=== PATIENT | male | born 1940 | race Caucasian/White ===

== ENCOUNTER → 2018-12-07 | Day surgery (SDC) | payer MEDICARE ==
[2018-12-03 10:18] VITALS: BMI 29.7
[~2018-12-07] MED LIST: ALPRAZolam 0.25 MG TAB PO PRN; ASPIRIN 325 MG TAB PO ONE; FAMOTIDINE 20 MG TAB PO SCH; FENOFIBRATE NANOCRYSTALLIZED 145 MG PO SCH; GLIMEPIRIDE 2 MG TAB PO SCH; HEPARIN SODIUM 1,000 UN/ML (10ML VL) ONE; HYDROCHLOROTHIAZIDE 25 MG TAB PO SCH; IOPAMIDOL-370 125ML BTL INJ ONE; ISOSORBIDE MONONITRATE ER 60 MG TAB.ER.24H PO SCH; IV FLUID CONTINUATION 950 ML IV ONE; LIDOCAINE 1% INJ 10MG/ML (20 ML MDV) ONE; LIDOCAINE 1% INJ 10MG/ML (20 ML MDV) SQ ONE; LISINOPRIL 20 MG TAB PO SCH; NON-FORMULARY DRUG (Hydralazine Hcl [Apresoline] 100 MG) PO SCH; NON-FORMULARY DRUG (Metoprolol Tartrate [Lopressor] 100 MG) PO SCH; RX INFO: IV CONTRAST WAS GIVEN 1 EACH MISC MISCELLANE PRN; SODIUM CHLORIDE 0.9% 1,000 ML IV SCH; SODIUM CHLORIDE 0.9% 1,000 ML in EMPTY BAG 1 BAG IV ONE; VERAPAMIL 2.5 MG/ML 2 ML AMP ONE; VERAPAMIL SYRINGE (5 MG/10 ML) INTRAARTER ONE; fentaNYL (PF) 50 MCG/ML 2 ML AMP IV ONE; fentaNYL (PF) 50 MCG/ML 2 ML AMP ONE
[2018-12-07 07:15] LABS: Glucose,Whole Blood 136 mg/dL (75-99)
[2018-12-07 07:18] VITALS: RESP 18; TEMP 98.4
[2018-12-07 07:32] LABS: Basophils % (A) 0 %; Eosinophils # (A) 0.1 k/uL (0-0.7); Eosinophils % (A) 1 %; HCT 47.2 % (39.0-53.0); HGB 15.1 gm/dL (13.0-17.5); Lymphocytes # (A) 1.1 k/uL (1.0-4.8); Lymphocytes % (A) 17 %; MCH 31.2 pg (25.0-35.0); MCHC 31.9 g/dL (31.0-37.0); MCV 97.6 fL (80.0-100.0); Monocytes # (A) 0.4 k/uL (0-1.0); Monocytes % (A) 6 %; Neutrophils # (A) 4.7 k/uL (1.3-7.7); Neutrophils % (A) 72 %; Platelet Count 193 k/uL (150-450); RBC 4.84 m/uL (4.30-5.90); RDW 14.6 % (11.5-15.5); WBC 6.6 k/uL (3.8-10.6)
[2018-12-07 08:06] LABS: Calcium 9.1 mg/dL (8.4-10.2); Potassium 4.3 mmol/L (3.5-5.1)
--- NOTE | 2018-12-07 09:35 | CC ---
CARDIAC CATHETERIZATION REPORT Mr. Grossman is a 78-year-old male with known history of hypertension, hyperlipidemia, diabetes mellitus, history of cardiomyopathy who recently had evidence of worsening of his left ventricular systolic function. In view of that, he underwent myocardial perfusion imaging that revealed a predominantly fixed inferior wall defect. Because of the deterioration of his LV function and results of the stress test, recommendation made regarding cardiac catheterization, the procedures, risks and complications were discussed with the patient who is in full understanding and agreement. PROCEDURE: Patient was brought to energy systems laboratory director in the fasting semi-sedated state after receiving fentanyl and Benadryl and achieving moderate conscious sedated state. Using Xylocaine anesthesia and Seldinger technique, a 6-Czech sheath was introduced in the right radial artery. Selective right and left coronary angiography was performed using 5- Czech 3.5 bend right and left Kenji catheter, multiple views of the coronary artery including hemiaxial views obtained. Following that, a 5-Czech tight pigtail catheter was introduced in the left ventricle and a 30 degree LUCERO view of the left ventricle was obtained. Following that, catheter and sheaths were removed. Hemostasis was obtained with deployment of a TR band. There was no immediate complication. Patient is returned to his room in stable condition. Of note, patient received 4000 units of intravenous heparin as well as intra-arterial verapamil. There was no immediate complication. FINDINGS: LEFT MAIN: This is a large-sized vessel, trifurcating into left circumflex, left anterior descending artery and ramus intermedius. Left main coronary artery has no evidence of high-grade stenosis. LEFT ANTERIOR DESCENDING ARTERY: This is a large-sized vessel, reaching toward the apex with a wraparound apex segment, giving rise to a moderately-sized diagonal branch. The left anterior descending artery has mild intimal disease of 10% to 20% without any evidence of high-grade stenosis. LEFT CIRCUMFLEX: This is a nondominant vessel, giving rise to two obtuse marginal branches. The left circumflex has no evidence of high-grade stenosis. RAMUS INTERMEDIUS: This is a large-sized vessel that reached toward the apical lateral wall. The ramus intermedius has mild intimal disease without any evidence of high-grade stenosis. RIGHT CORONARY ARTERY: This is a large dominant vessel, bifurcating distally to a PDA and small PLV. The right coronary artery in the proximal segment has a 40% plaque. The rest of the vessel has diffuse intimal disease without any evidence of high-grade stenosis. LEFT VENTRICULOGRAM: Left ventriculogram was performed in 30 degree LUCERO view and revealed a dilated left ventricle with severe global hypokinesis. Ejection fraction is estimated at 20%-25%. There was no significant mitral regurgitation. HEMODYNAMICS: There was no gradient across the aortic valve. The left ventricle end-diastolic pressure was 20% to 24 mmHg. CONCLUSION: 1. Moderate disease in the proximal right coronary artery with mild disease in the LAD and the ramus intermedius. 2. Severely impaired left ventricular systolic function. RECOMMENDATION: In view of the findings, the results are consistent with nonischemic cardiomyopathy. At this time, I will recommend to maximize his medical therapy and consider upgrading his pacemaker to a biventricular ICD device. Those findings and recommendation were discussed with the patient and his family, they are in full understanding and agreement. Duration of the procedure, 22 minutes. TAMIE / BLANKA: [id number] /
[2018-12-07 11:58] VITALS: BP 114/69; PULSE 75
== END | disposition home or self-care (01) ==
LOC: CATHCVL 06:24
PROVIDERS: ATTEND Internal Medicine Interventional Cardiology
DX: I25.10 Atherosclerotic heart disease of native coronary artery without angina pectoris (principal); I48.2 Chronic atrial fibrillation; I42.8 Other cardiomyopathies; I11.9 Hypertensive heart disease without heart failure; E11.51 Type 2 diabetes mellitus with diabetic peripheral angiopathy without gangrene; F17.210 Nicotine dependence, cigarettes, uncomplicated; I25.2 Old myocardial infarction; E78.2 Mixed hyperlipidemia; Z79.01 Long term (current) use of anticoagulants; Z79.899 Other long term (current) drug therapy; Z95.0 Presence of cardiac pacemaker; Z79.84 Long term (current) use of oral hypoglycemic drugs
CPT/HCPCS: 93458; 80048; 85025; C1894; C1769; J2001; J3010; J1644; Q9967

== ENCOUNTER → 2018-12-17 | Outpatient (CLI) | payer MEDICARE ==
[2018-12-17 20:00] LABS: Anion Gap 10.4 mmol/L (4.00-12.00); Calcium 8.8 mg/dL (8.7-10.3); Carbon Dioxide 27.6 mmol/L (21.6-31.8)
== END | disposition home or self-care (01) ==
LOC: LABWHC1 13:11
PROVIDERS: ATTEND Nurse Practitioner Adult Health
DX: I42.8 Other cardiomyopathies (principal)
CPT/HCPCS: 36415; 80048

== ENCOUNTER → 2019-01-18 | Day surgery (SDC) | payer MEDICARE ==
[~2019-01-18] MED LIST changes: -ALPRAZolam 0.25 MG TAB PO PRN; -ASPIRIN 325 MG TAB PO ONE; -FAMOTIDINE 20 MG TAB PO SCH; -FENOFIBRATE NANOCRYSTALLIZED 145 MG PO SCH; -GLIMEPIRIDE 2 MG TAB PO SCH; -HEPARIN SODIUM 1,000 UN/ML (10ML VL) ONE; -HYDROCHLOROTHIAZIDE 25 MG TAB PO SCH; +IOPAMIDOL-250 50ML BTL IV ONE; -IOPAMIDOL-370 125ML BTL INJ ONE; -ISOSORBIDE MONONITRATE ER 60 MG TAB.ER.24H PO SCH; -IV FLUID CONTINUATION 950 ML IV ONE; -LIDOCAINE 1% INJ 10MG/ML (20 ML MDV) ONE; -LIDOCAINE 1% INJ 10MG/ML (20 ML MDV) SQ ONE; -LISINOPRIL 20 MG TAB PO SCH; -NON-FORMULARY DRUG (Hydralazine Hcl [Apresoline] 100 MG) PO SCH; -NON-FORMULARY DRUG (Metoprolol Tartrate [Lopressor] 100 MG) PO SCH; -RX INFO: IV CONTRAST WAS GIVEN 1 EACH MISC MISCELLANE PRN; -SODIUM CHLORIDE 0.9% 1,000 ML IV SCH; -SODIUM CHLORIDE 0.9% 1,000 ML in EMPTY BAG 1 BAG IV ONE; +SODIUM CHLORIDE 0.9% 500 ML 500 ML IV ONE; -VERAPAMIL 2.5 MG/ML 2 ML AMP ONE; -VERAPAMIL SYRINGE (5 MG/10 ML) INTRAARTER ONE; -fentaNYL (PF) 50 MCG/ML 2 ML AMP IV ONE; -fentaNYL (PF) 50 MCG/ML 2 ML AMP ONE
[2019-01-18 14:47] VITALS: BP 135/72; PULSE 73; RESP 18; TEMP 97.7
--- NOTE | 2019-01-18 15:50 | P.PCN ---
Preoperative Diagnosis: Diagnosis Congestive heart failure with severe LV dysfunction, [id number]% 100%RVpacing global hypokinesis nonischemic coronary myopathy Nonobstructive CAD Likely progressive cardio myopathy within 2 years of 100% RV pacing secondary to dual-chamber pacing for complete heart block Significant heart failure symptoms Cinefluoroscopy of the leads Right-sided dual-chamber pacemaker implant. Cine fluoroscopy reveals right atrial lead screwed in the right atrial appendage and RV lead in the low RV septum. No fractures or breaks Right upper extremity venography 10 mL of IV dye injected in the right upper extremity. Patent left axillary vein but significantly occluded innominate/SVC junction There is a trickle of dye that goes across this stenosis Plan Attempt access from the right side. Vein will need to be dilatation. If this does not succeed one could consider a left-sided implant and tunneling the LV lead across to the right side. The other option is thoracoscopic LV lead placement Discussed with patient's [id number] who accompanied him
== END | disposition home or self-care (01) ==
LOC: CATHEP 14:24
PROVIDERS: ATTEND Internal Medicine Clinical Cardiac Electrophysiology
DX: I42.8 Other cardiomyopathies (principal); I25.10 Atherosclerotic heart disease of native coronary artery without angina pectoris; I48.2 Chronic atrial fibrillation; I50.22 Chronic systolic (congestive) heart failure; E78.2 Mixed hyperlipidemia; I44.2 Atrioventricular block, complete; I11.0 Hypertensive heart disease with heart failure; E11.51 Type 2 diabetes mellitus with diabetic peripheral angiopathy without gangrene; Z72.0 Tobacco use; Z79.84 Long term (current) use of oral hypoglycemic drugs; Z79.01 Long term (current) use of anticoagulants; Z79.899 Other long term (current) drug therapy; Z95.0 Presence of cardiac pacemaker
CPT/HCPCS: 36005; 75820; Q9966; 76000

== ENCOUNTER → 2019-01-25 | Outpatient (CLI) | payer MEDICARE ==
[2019-01-25 11:48] LABS: HCT 44.6 % (39.0-53.0); HGB 13.6 gm/dL (13.0-17.5); MCH 29.5 pg (25.0-35.0); MCHC 30.5 g/dL (31.0-37.0); MCV 96.7 fL (80.0-100.0); Mean Platelet Volume 7.4; Platelet Count 174 k/uL (150-450); RBC 4.61 m/uL (4.30-5.90); RDW 15.2 % (11.5-15.5); WBC 5.1 k/uL (3.8-10.6)
== END | disposition home or self-care (01) ==
LOC: LABPAT 11:13
PROVIDERS: ATTEND Internal Medicine Clinical Cardiac Electrophysiology
DX: Z01.812 Encounter for preprocedural laboratory examination (principal); I48.2 Chronic atrial fibrillation; I42.8 Other cardiomyopathies
CPT/HCPCS: 36415; 80051; 82565; 82947; 84520; 85027

== ENCOUNTER 2019-02-01 05:57 | Day surgery (SDC) | payer MEDICARE ==
[~2019-02-01 05:57] MED LIST changes: +HYDROmorphone 0.5 MG/0.5 ML SYRINGE IVP PRN; -IOPAMIDOL-250 50ML BTL IV ONE; +LACTATED RINGERS 1,000 ML IV SCH; +MORPHINE SULFATE 4 MG/ML SYRINGE IV PRN; -SODIUM CHLORIDE 0.9% 500 ML 500 ML IV ONE
[2019-02-01] MEDS ORDERED: SODIUM CHLORIDE 0.9% 1,000 ML IV SCH ×2 (06:04)
[2019-02-01] MEDS ORDERED: ceFAZolin 1,000 MG in SODIUM CHLORIDE 0.9% IRRIGATIO 250 ML IRRIGATION ONE (06:30)
[2019-02-01 06:58] LABS: Glucose,Whole Blood 92 mg/dL (75-99)
[2019-02-01] MEDS ORDERED: MIDAZOLAM 2 MG/2 ML VIAL ONE (07:30)
[2019-02-01] MEDS ORDERED: fentaNYL (PF) 50 MCG/ML 2 ML AMP ONE (07:30)
[2019-02-01] MEDS ORDERED: SUCCINYLCHOLINE CHLORIDE 100 MG/5 ML SYR IV ONE (07:30)
[2019-02-01] MEDS ORDERED: PROPOFOL 10 MG/ML 20 ML VIAL IV ONE (07:30)
[2019-02-01] MEDS ORDERED: ePHEDrine SULFATE/0.9% NACL/PF 50 MG/5 ML SYRINGE IV ONE (07:30)
[2019-02-01] MEDS ORDERED: LIDOCAINE 1% INJ 10MG/ML (20 ML MDV) ONE ×2 (07:46→08:23)
[2019-02-01] MEDS ORDERED: IV FLUID CONTINUATION 900 ML IV ONE (07:48)
[2019-02-01] MEDS ORDERED: SODIUM CHLORIDE 0.9% 250 ML IV ONE (07:48)
[2019-02-01] MEDS ORDERED: IOPAMIDOL-250 50ML BTL IV ONE (08:00)
[2019-02-01] MEDS: ceFAZolin IN SWFI 2 GM/20 ML SYRINGE IVP ONE ×2 (08:18→08:23)
[2019-02-01] MEDS: VANCOMYCIN 1,250 MG in SODIUM CHLORIDE 0.9% 250 ML IVPB ONE ×2 (08:23→08:28)
[2019-02-01] MEDS ORDERED: LIDOCAINE 1% INJ 10MG/ML (20 ML MDV) SQ ONE (08:27)
[2019-02-01] MEDS ORDERED: LACTATED RINGERS 1,000 ML IV ONE (11:06)
[2019-02-01] MEDS ORDERED: ACETAMINOPHEN TAB 325 MG TAB PO PRN (12:13)
[2019-02-01] MEDS ORDERED: HYDROcodone/APAP 5-325MG 1 EACH TAB PO PRN (12:13)
[2019-02-01] MEDS ORDERED: ACETAMINOPHEN IV (For NPO) 1,000 MG in EMPTY BAG 1 BAG IVPB ONE (12:13)
--- NOTE | 2019-02-01 12:25 | P.PN ---
Progress Note - Text This morning the patient was being prepped, chest wall, there was breech in the skin integrity during shaving process. Therefore IV vancomycin was administered along with intravenous Kefzol
--- NOTE | 2019-02-01 12:52 | P.PCN ---
Preoperative Diagnosis: Diagnosis Congestive heart failure new chronic systolic dysfunction High RV pacing percentage on account of significant AV node disease Procedures performed Implantation of a his bundle lead, physiologic septal pacing, with development of a left bundle branch block morphology type conduction, QRS width of 136 ms, via left axillary vein Implantation of an LV lead in the lateral vein for biventricular pacing with His bundle lead, via left axillary vein Capping of the chronic RV lead in the right side and secured to the underlying r ight pectoralis muscle Tunneling of the His bundle lead and the LV lead from the left to the right side Explantation of dual-chamber pacemaker on the right side him a chronic generator Implantation of a new biventricular pacemaker generator where the chronic atrial lead is in the atrial port, His bundle lead is in the right ventricular port and LV lead is in the LV port. Long procedure lasting for greater than 3-1/2 hours Details of procedure The left anterior chest wall was prepped and draped in its entirety. General anesthesia was provided. IV Kefzol followed by IV vancomycin was administered. The chronic pacemaker generator on the right side was reprogrammed. Rate- responsive turned off Incision was made in the right side directly over the generator and the subfascial pocket was made and extended for implantation of the future biventricular pacemaker. Tunneling process was begun on the right side and later on the left side. Later the atrial lead was disconnected and connected to the biventricular pacemaker generator, [employer]tr[employer] Once the LV lead in the His bundle lead was tunneled on the left side to the right side these were connected to this generator also. His bundle lead in the right ventricular port and LV lead in the LV port With biventricular pacing using the His bundle lead and the LV lead there was significant narrowing of the QRS which was our ultimate goal with a QRS width of about 104 ms normal morphology An incision was made on the left side a small pocket was made. Access was obtained in the left axillary vein First the His bundle lead was placed. Multiple sites was explored to narrow the QRS. However at all sites with the proximal or distal, the morphology was a left bundle branch block with His bundle pacing even at high output. The narrowest QRS width 15 was 136 ms The first decision was made to place the LV lead also and performed biventricular pacing with the His bundle lead to further narrow QRS in an attempt to provide more synchronous contraction and hopefully improve his heart failure status Coronary sinus was cannulated the LV lead was placed. Initially the Medtronic lead was placed. Gerardo sinus venogram revealed a large lateral vein and a posterior lateral vein. The lateral vein was targeted. However the Medtronic lead would not pass into the lateral vein on account of the tortuosity. Therefore a [facility] [facility] office receptionist was placed. There was a slight dislodgment of the lead proximally upon removal of the sheath and therefore decision was made to implant the Medtronic lead over the wire. However this would not successful and a new [facility] [facility] [facility] receptionist was placed more distally in the lateral vein. This was a long procedure A lead and the LV lead was then tunneled across to the right side and connected as described above AV sequential pacing with biventricular pacing using the His bundle lead in the LV lead resulted in significant narrowing of the QRS with normalization of the QRS with a QRS width of 104 ms with simultaneous pacing This is a long procedure lasting greater than 3-1/2 hours
--- NOTE | 2019-02-01 12:53 | P.PRLE ---
RE: Dm Grossman Dear Dr. Stanford Mr. Grossman underwent implantation of a biventricular pacemaker with significant narrowing of the QRS. Hopefully this helps with his heart failure. His m edications remain unchanged Thank you for entrusting me with the care of the patient Warm regards Sincerely Donal Boykin
[2019-02-01] MEDS: ceFAZolin IN SWFI 2 GM/20 ML SYRINGE IVP SCH ×2 (14:34→18:43)
[2019-02-01 14:50] VITALS: RESP 18
[2019-02-01] MEDS: LISINOPRIL 20 MG TAB PO SCH (21:06)
[2019-02-01] MEDS: hydrALAZINE HCL 50 MG TAB PO SCH (21:06)
[2019-02-01] MEDS: METOPROLOL TARTRATE 50 MG TAB PO SCH (21:06)
[2019-02-01] MEDS: APIXABAN 2.5 MG TABLET PO SCH (21:06)
[2019-02-01 21:41] LABS: Glucose,Whole Blood 122 mg/dL (75-99)
[2019-02-01] MEDS: GLIMEPIRIDE 1 MG TAB PO SCH (23:24)
[2019-02-02] MEDS: ceFAZolin IN SWFI 2 GM/20 ML SYRINGE IVP SCH ×2 (00:36→06:40)
[2019-02-02 06:38] LABS: Glucose,Whole Blood 93 mg/dL (75-99)
[2019-02-02 08:01] VITALS: BP 139/80; PULSE 67; TEMP 98.3
--- NOTE | 2019-02-02 08:08 | P.DS ---
Providers Attending physician: Donal Boykin Primary care physician: Hien Pradhan [facility] Course: Patient is doing well. He is resting comfortably in bed. He ambulated in his room as well as in the hallways comfortably He denies any chest discomfort that is no bruising in his chest no swelling in the pacemaker site No dizziness lightheadedness Blood pressure 147/74 mmHg Pulse rate in the 70s Breath sounds are clear Normal heart sounds, no murmurs Abdomen soft Eccentric 70s warm no edema Impression Upgrade to a biventricular system, by ventricle pacemaker Leads placed via left axillary vein and then tunneled across to the right side Biventricular pacemaker generator on the right side Cardiomyopathy Congestive heart failure Suggest Discharge home after completion of IV antibiotics pacemaker interrogation and follow-up in the device clinic within 7 days and follow with Dr. Dr. Reddy within 7 days Plan - Discharge Summary Discharge Rx Participant: Yes New Discharge Prescriptions: Continue Metoprolol Tartrate [Lopressor] 100 mg PO BID Hydrochlorothiazide [Hydrodiuril] 25 mg PO DAILY metFORMIN HCL [Glucophage] 1,000 mg PO BID hydrALAZINE HCL [Apresoline] 100 mg PO BID Fenofibrate Nanocrystallized [Fenofibrate] 145 mg PO DAILY Isosorbide Mononitrate ER [Imdur] 60 mg PO DAILY Famotidine 20 mg PO BID Apixaban [Eliquis] 2.5 mg PO BID Lisinopril 20 mg PO BID Furosemide [Lasix] 20 mg PO DAILY Glimepiride [Amaryl] 1 mg PO BID Discharge Medication List Fenofibrate Nanocrystallized [Fenofibrate] 145 mg PO DAILY 02/16/15 [History] Hydrochlorothiazide [Hydrodiuril] 25 mg PO DAILY 02/16/15 [History] Isosorbide Mononitrate ER [Imdur] 60 mg PO DAILY 02/16/15 [History] Metoprolol Tartrate [Lopressor] 100 mg PO BID 02/16/15 [History] hydrALAZINE HCL [Apresoline] 100 mg PO BID 02/16/15 [History] metFORMIN HCL [Glucophage] 1,000 mg PO BID 02/16/15 [History] Apixaban [Eliquis] 2.5 mg PO BID 12/03/18 [History] Famotidine 20 mg PO BID 12/03/18 [History] Lisinopril 20 mg PO BID 12/03/18 [History] Furosemide [Lasix] 20 mg PO DAILY 01/18/19 [History] Glimepiride [Amaryl] 1 mg PO BID 02/01/19 [History] Follow up Appointment(s)/Referral(s): Landyr Reddy MD [STAFF PHYSICIAN] - 1 Week (Follow-up as scheduled next week along with pacemaker check in the device clinic) Activity/Diet/Wound Care/Special Instructions: PATIENT EDUCATION MATERIAL Instructions following a heart rhythm device implant. 1. Keep dressing DRY for 5 DAYS. You may cover the area with Saran or Cling Wrap, prior to a shower. 2. The dressing will be removed in the Device Clinic at [facility]. Absorbable sutures were used to close the wound. 3. Avoid raising the left arm above the shoulder level. 4 week restriction 4. Avoid arm movements, like backscratching, rubbing the head, or pulling on a cord. 4 weeks restriction 5. Gentle range of motion movements of the shoulder, closest to the incision should be performed to avoid a frozen shoulder. (Pendulum exercises of the shoulder) 6. The opposite arm may be used freely. 7. Avoid driving for 7 days. 8. Avoid activities such as golfing, swimming, weed whacking, lifting more than 10 pounds weight, bowling, gymnastics and weight training/lifting. (6 weeks restriction) 9. Activities such as wood chopping with an axe, pull-ups in the gymnasium, power lifting, arc-welding, being close to home induction cooktops will always be a problem. 10. Arm sling is only a reminder not to raise the arm above the head. You do not need to keep the arm completely immobilized. Your free to move the arm and use it and for normal activities. In case of any problems, please call [facility], Sita Sanchez, @ [phone], Attention: Device Clinic Device clinic follow-up in 5 days Follow-up with primary intern product marketing manager in 2-3 months Discharge Disposition: HOME SELF-CARE
--- NOTE | 2019-02-02 08:25 | XR ---
EXAMINATION TYPE: XR chest 2V DATE OF EXAM: 02/02/2019 COMPARISON: NONE HISTORY: Shortness of breath TECHNIQUE: Frontal and lateral views of the chest are obtained. FINDINGS: Scattered senescent parenchymal changes noted. Hyperinflation compatible with COPD. Right basilar atelectasis and/or infiltrate. Correlate clinically. Pulmonary venous congestion withou t overt failure. Dual-lead pacer device overlies the right chest wall. Distal leads are within the right atrium and ri ght ventricle respectively. Heart size is stable. Mediastinal structures are stable and grossly unremarkable. No evidence for hilar prominence. Degenerative changes dorsal spine. IMPRESSION: 1. Pacemaker leads as noted. 2. Right basilar volume loss may reflect atelectasis or infiltrate. Correlate clinically.
[2019-02-02] MEDS ORDERED: HYDROCHLOROTHIAZIDE 25 MG TAB PO SCH (09:00)
[2019-02-02] MEDS ORDERED: ISOSORBIDE MONONITRATE ER 60 MG TAB.ER.24H PO SCH (09:00)
[2019-02-02] MEDS ORDERED: FUROSEMIDE 20 MG TAB PO SCH (09:00)
[2019-02-02] MEDS: APIXABAN 2.5 MG TABLET PO SCH (09:31)
[2019-02-02] MEDS: LISINOPRIL 20 MG TAB PO SCH (09:31)
[2019-02-02] MEDS: METOPROLOL TARTRATE 50 MG TAB PO SCH (09:31)
[2019-02-02] MEDS: hydrALAZINE HCL 50 MG TAB PO SCH (09:31)
[2019-02-02] MEDS: GLIMEPIRIDE 1 MG TAB PO SCH (09:31)
[2019-02-02 11:13] VITALS: BMI 27.6
[2019-02-03] MEDS ORDERED: metFORMIN 500 MG TAB PO SCH (17:30)
== END 2019-02-02 11:00 | disposition home or self-care (01) ==
LOC: CATHEP 05:57 → 1SOBS 11:48 → CATHEP 02-02 11:00
PROVIDERS: ATTEND Internal Medicine Clinical Cardiac Electrophysiology
DX: I42.8 Other cardiomyopathies (principal); I11.0 Hypertensive heart disease with heart failure; I50.22 Chronic systolic (congestive) heart failure; Z45.018 Encounter for adjustment and management of other part of cardiac pacemaker; I48.2 Chronic atrial fibrillation; E78.5 Hyperlipidemia, unspecified; I25.10 Atherosclerotic heart disease of native coronary artery without angina pectoris; I42.9 Cardiomyopathy, unspecified; M19.90 Unspecified osteoarthritis, unspecified site; I25.2 Old myocardial infarction; Z72.0 Tobacco use; E11.51 Type 2 diabetes mellitus with diabetic peripheral angiopathy without gangrene; Z79.01 Long term (current) use of anticoagulants; Z79.84 Long term (current) use of oral hypoglycemic drugs; Z79.899 Other long term (current) drug therapy
CPT/HCPCS: 33225; 33229; 71046; C1769 ×5; C1750; C1730; C1898; C1892 ×2; C1900 ×2; C2621; J2250; J3370; J0690 ×3; J2001; J3010; J0330; J2704; Q9966

== ENCOUNTER → 2019-05-12 | Outpatient (CLI) | payer MEDICARE ==
--- NOTE | 2019-05-12 16:16 | US ---
EXAMINATION TYPE: US kidneys/renal and bladder DATE OF EXAM: 05/12/2019 COMPARISON: NONE CLINICAL HISTORY: N28.9 Disorder of kidney and ureter, unspecified; diabetic EXAM MEASUREMENTS: Right Kidney: 10.1 x 6.2 x 4.4 cm Left Kidney: 10.5 x 5.3 x 4.8 cm Post Void Residual Volume: not assessed as bladder limitedly distended Right Kidney: No hydronephrosis or masses seen Left Kidney: 2 renal cysts seen with larger at medial cortex = 1.6 x 1.5 x 1.4cm Bladder: partially distended Bilateral Jets seen: No, small left ureteral jet was seen within 3 minute observation There is no evidence for hydronephrosis at this point in time. No nephrolithiasis is seen. The urin lucy bladder is anechoic. IMPRESSION: Simple appearing right renal cysts measuring up to 1.6 cm. No hydronephrosis or nephrolithiasis of ei ther kidney.
== END | disposition home or self-care (01) ==
LOC: RADUSWWP 14:57
PROVIDERS: ATTEND Internal Medicine
DX: N28.1 Cyst of kidney, acquired (principal); Z88.0 Allergy status to penicillin
CPT/HCPCS: 76770

== ENCOUNTER → 2020-05-15 | Outpatient (CLI) | payer MEDICARE ==
[2020-05-15 18:52] LABS: African American GFR (CKD) 54.2 (60.0-200.0); Anion Gap 8.2 mmol/L (4.00-12.00); BUN/Creat Ratio 21.43 Ratio (12.00-20.00); Calcium 9.5 mg/dL (8.7-10.3); Carbon Dioxide 28.8 mmol/L (21.6-31.8); Non-African American GFR(CKD) 46.8 (60.0-200.0)
== END | disposition home or self-care (01) ==
LOC: LABWHC1 09:06
PROVIDERS: ATTEND Internal Medicine Interventional Cardiology
DX: I10 Essential (primary) hypertension (principal)
CPT/HCPCS: 36415; 80048

== ENCOUNTER → 2020-12-03 | Outpatient (CLI) | payer MEDICARE ==
[2020-12-03 12:33] LABS: Appearance,Urine Cloudy (Clear); Bacteria,Urine Rare /hpf; Bilirubin,Urine Negative (Negative); Blood,Urine Negative (Negative); Color,Urine Yellow; Glucose,Urine (UA) Negative (Negative); Hyaline Casts,Urine 14 /lpf (0-2); Ketones,Urine Negative (Negative); Leukocyte Esterase,Urine Negative (Negative); Mucus,Urine Moderate /hpf; Nitrite,Urine Negative (Negative); Protein,Urine 1+ (Negative); RBC,Urine 1 /hpf (0-5); Specific Gravity,Urine 1.021 (1.001-1.035); Squamous Epithelial Cell,Urine 2 /hpf (0-4); WBC,Urine 1 /hpf (0-5)
[2020-12-03 19:52] LABS: African American GFR (CKD) 65.3 (60.0-200.0); Anion Gap 8.5 mmol/L (4.00-12.00); BUN/Creat Ratio 22.5 Ratio (12.00-20.00); Calcium 9.5 mg/dL (8.7-10.3); Carbon Dioxide 28.5 mmol/L (21.6-31.8); Chol/HDL Ratio 2.4; LDL Cholesterol,Calculated 34.8 mg/dL (0.0-131.0); Non-African American GFR(CKD) 56.4 (60.0-200.0); Potassium 4.2 mmol/L (3.5-5.5); VLDL Calculation 21.2 mg/dL (5.00-40.00)
== END | disposition home or self-care (01) ==
LOC: LABWHC1 11:12 → EDSTATUS 11:23
PROVIDERS: ATTEND Internal Medicine Nephrology
DX: N18.31 Chronic kidney disease, stage 3a (principal); E78.2 Mixed hyperlipidemia
CPT/HCPCS: 36415; 80048; 80061; 81001

== ENCOUNTER → 2020-12-04 | Outpatient (CLI) | payer MEDICARE ==
--- NOTE | 2020-12-04 16:02 | US ---
EXAMINATION TYPE: US kidneys/renal and bladder DATE OF EXAM: 12/04/2020 COMPARISON: CLINICAL HISTORY: Renal cyst left N28.1. hx renal cysts. EXAM MEASUREMENTS: Right Kidney: 10.0 x 4.1 x 4.6 cm Left Kidney: 9.1 x 3.9 x 4.8 cm Right Kidney: two cystic appearing lesions seen. 1= mid cortical = 0.6 x 0.5 x 0.5 cm. 2- medial = 0 .6 x 0.5 x 0.5 cm. Left Kidney: two cystic appearing lesion seen. 1= upper- 0.7 x 0.7 x 0.7 cm 2= medial pole exophyti c = 1.4 x 1.5 x 1.0 cm Bladder: mildly distended, anechoic Bilateral Jets not seen Incidental finding: right pleural effusion= 12.0 cm Cortical medullary differentiation is maintained. IMPRESSION: Right pleural effusion. Small cortical cysts suspected on the right and left show similar appearance.
== END | disposition home or self-care (01) ==
LOC: RADUSWWP 15:03
PROVIDERS: ATTEND Internal Medicine Nephrology
DX: J90 Pleural effusion, not elsewhere classified (principal); N28.1 Cyst of kidney, acquired
CPT/HCPCS: 76770

== ENCOUNTER → 2021-01-14 | Outpatient (CLI) | payer MEDICARE ==
[2021-01-14 17:07] LABS: Appearance,Urine Clear (Clear); Bilirubin,Urine Negative (Negative); Blood,Urine Negative (Negative); Color,Urine Yellow; Glucose,Urine (UA) Negative (Negative); Hyaline Casts,Urine 1 /lpf (0-2); Ketones,Urine Negative (Negative); Leukocyte Esterase,Urine Negative (Negative); Mucus,Urine Occasional /hpf; Nitrite,Urine Negative (Negative); PH, Urine 5.5 (5.0-8.0); Protein,Urine 1+ (Negative); RBC,Urine 6 /hpf (0-5); Specific Gravity,Urine 1.021 (1.001-1.035); Squamous Epithelial Cell,Urine 1 /hpf (0-4); Urobilinogen,Urine <2.0 mg/dL (<2.0); WBC,Urine 1 /hpf (0-5)
[2021-01-14 17:47] LABS: Creatinine,Urine Random 121.4 mg/dL; Protein/Creatinine Ratio,Urine 0.395
[2021-01-15] LABS: Basophils # (A) 0.03 X 10*3/uL (0.00-0.10); Basophils % (A) 0.6 %; Eosinophils % (A) 1.9 %; HCT 42.3 % (39.6-50.0); HGB 13.6 g/dL (13.0-17.0); Lymphocytes # (A) 0.81 X 10*3/uL (0.90-5.00); Lymphocytes % (A) 15.4 %; MCH 32.2 pg (27.0-32.0); MCHC 32.2 g/dL (32.0-37.0); MCV 100.2 fL (80.0-97.0); Mean Platelet Volume 11.7 fL (9.5-12.2); Monocytes # (A) 0.77 X 10*3/uL (0.20-1.00); Monocytes % (A) 14.7 %; Neutrophils # (A) 3.51 X 10*3/uL (1.80-7.70); Neutrophils % (A) 66.8 %; Platelet Count 143 X 10*3/uL (140-440); RBC 4.22 X 10*6/uL (4.40-5.60); RDW 15.7 % (11.5-14.5); WBC 5.25 X 10*3/uL (4.50-10.00)
[2021-01-15 04:26] LABS: % Iron Saturation 31.9 (15.00-50.00); African American GFR (CKD) 65.3 (60.0-200.0); Albumin 4.5 g/dL (3.80-4.90); Anion Gap 8.7 mmol/L (4.00-12.00); BUN/Creat Ratio 26.67 Ratio (12.00-20.00); Calcium 9.2 mg/dL (8.7-10.3); Carbon Dioxide 27.3 mmol/L (21.6-31.8); Magnesium 1.8 mg/dL (1.5-2.4); Non-African American GFR(CKD) 56.4 (60.0-200.0); Phosphorus 3.2 mg/dL (2.4-5.1); Potassium 4.3 mmol/L (3.5-5.5); Uric Acid 4.5 mg/dL (3.7-8.7)
[2021-01-15 04:34] LABS: Ferritin 250.7 ng/mL (22.0-322.0)
== END | disposition home or self-care (01) ==
LOC: LABWHC1 15:20
PROVIDERS: ATTEND Internal Medicine Nephrology
DX: N18.31 Chronic kidney disease, stage 3a (principal); N39.0 Urinary tract infection, site not specified; R80.9 Proteinuria, unspecified; N25.81 Secondary hyperparathyroidism of renal origin; D64.9 Anemia, unspecified; M10.9 Gout, unspecified; E55.9 Vitamin D deficiency, unspecified
CPT/HCPCS: 36415; 80048; 81001; 82040; 82306; 82570; 82728; 83540; 83550; 83735; 83970; 84100; 84156; 84550; 85025

== ENCOUNTER 2021-01-31 18:45 | Inpatient (IN) | payer MEDICARE ==
--- NOTE | 2021-01-31 19:45 | ED ---
General Adult HPI - General Chief complaint: Fall Stated complaint: Fall/Blood Thinners Time Seen by Provider: 01/31/21 18:57 Source: patient, family, EMS Mode of arrival: EMS Limitations: no limitations - History of Present Illness Initial comments: 80-year-old male who presents to the emergency department after he was found down on his kitchen floor. [id number] is at bedside and helps provide history. States that they last spoke to him at 7 PM yesterday and the patient was his normal self. He lives alone, ambulates unassisted and drives. States that he was found down on the kitchen floor by his son, confused at 6 PM this evening. He did have some facial droop with swelling, unknown if it was secondary to prolonged down time. No unilateral weakness in his extremity. Some dysarthria attributed to the patients enlarged uvula and dry tongue. 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 Patient is on anticoagulation. He is able to answer questions appropriately upon arrival. Noted to have some increased respirations. He denies headaches or visual changes. No neck pain. Denies back or flank pain. No chest pain. Denies any pain in his arms or legs. Patient reports that he was in the kitchen attempting to take his medications and this is the last thing he remembers - Related Data Home Medications Medication Instructions Recorded Confirmed Fenofibrate Nanocrystallized 145 mg PO DAILY 02/16/15 01/31/21 [Fenofibrate] Isosorbide Mononitrate ER [Imdur] 60 mg PO DAILY 02/16/15 01/31/21 Metoprolol Tartrate [Lopressor] 100 mg PO BID 02/16/15 01/31/21 Apixaban [Eliquis] 2.5 mg PO BID 12/03/18 01/31/21 Furosemide [Lasix] 20 mg PO BID PRN 01/18/19 01/31/21 Glimepiride [Amaryl] 1 mg PO BID 02/01/19 01/31/21 Ergocalciferol [Vitamin D2 (1250 1,250 mcg PO Q7D 01/31/21 01/31/21 Mcg = 23483 Iu)] Ketoconazole 2% Cream [Nizoral 2%] 1 applic TOPICAL DAILY PRN 01/31/21 01/31/21 Previous Rx's Medication Instructions Recorded Atorvastatin [Lipitor] 40 mg PO HS tab 02/06/21 INSULIN ASPART (NovoLOG) [NovoLOG 0 unit SQ ACHS vial 02/06/21 (formulary)] lisinopriL [Zestril] 10 mg PO DAILY tab 02/06/21 Allergies Allergy/AdvReac Type Severity Reaction Status Date / Time Penicillins AdvReac Unknown Verified 01/31/21 21:01 Review of Systems ROS Statement: Those systems with pertinent positive or pertinent negative responses have been documented in the HPI. ROS Other: All systems not noted in ROS Statement are negative. Past Medical History Past Medical History: Heart Failure, Hypertension History of Any Multi-Drug Resistant Organisms: None Reported Past Surgical History: Orthopedic Surgery, Pacemaker Additional Past Surgical History / Comment(s): colonoscopy. repair lt toe Past Anesthesia/Blood Transfusion Reactions: No Reported Reaction Type of Cardiac Device: Biventricular Pacemaker, Permanent Pacemaker Device Placement Date:: 02-01-2019 Past Psychological History: No Psychological Hx Reported Smoking Status: Former smoker Past Alcohol Use History: None Reported Past Drug Use History: None Reported - Past Family History Mother Family Medical History: No Reported History Brother(s) Family Medical History: Memory Impairment Additional Family Medical History / Comment(s): youngest brother passed at 66 in 2020 from a [place] General Exam Limitations: no limitations General appearance: alert, in no apparent distress Head exam: Present: atraumatic, normocephalic, other (mild right sided facial swelling and droop - involvements cheek, right upper and lower eyelids) Eye exam: Present: normal appearance, PERRL, EOMI. Absent: scleral icterus, conjunctival injection, periorbital swelling ENT exam: Present: mucous membranes dry, other (dried blood in posterior pharynx. Uvula markedly enlarged. No peritonsillar abscess identified. ) Neck exam: Present: normal inspection. Absent: tenderness, meningismus, lymphadenopathy Respiratory exam: Present: rales (at bases), accessory muscle use, other (tachypnia. Conversational dyspnea. Coarse breath sounds in apex). Absent: respiratory distress, wheezes, rhonchi, stridor Cardiovascular Exam: Present: regular rate, normal rhythm, normal heart sounds. Absent: systolic murmur, diastolic murmur, rubs, gallop, clicks GI/Abdominal exam: Present: soft, normal bowel sounds. Absent: distended, tenderness, guarding, rebound, rigid exam: Present: normal inspection Extremities exam: Present: normal inspection, full ROM, normal capillary refill, other (5/5 strength all 4 extremities). Absent: tenderness, pedal edema, joint swelling, calf tenderness Back exam: Present: normal inspection, CVA tenderness (R) (no bruising noted), other Neurological exam: Present: alert, CN II-XII intact, other (follows all commands. Answers questions appropriately. ) Psychiatric exam: Present: normal affect, normal mood Skin exam: Present: warm, dry, intact, normal color. Absent: rash Course Vital Signs 01/31/21 01/31/21 02/01/21 19:05 23:28 04:00 Temperature 97.8 F Pulse Rate 82 60 60 Respiratory 16 16 19 Rate Blood Pressure 151/67 153/69 153/69 O2 Sat by Pulse 97 98 94 L Oximetry 02/01/21 02/01/21 02/01/21 09:25 12:45 14:00 Temperature 99.1 F 98.5 F Pulse Rate 60 60 Respiratory 18 16 18 Rate Blood Pressure 152/72 150/90 O2 Sat by Pulse 97 95 Oximetry EKG Findings - EKG Comments: EKG Findings:: EKG demonstrates a ventricularly paced rhythm with a rate of 66. QRS 152. QTC of 522. Pacemaker captures appropriately. No sgarbossa criteria. Medical Decision Making - Medical Decision Making Upon arrival patient is placed into room 16. A thorough history and physical exam was performed. Patient does have some facial asymmetry on the right however he also has associated swelling to his eyes and cheek. Prominent swelling to the patient's uvula. IV is established. Patient started on gentle fluids. Laboratory studies are conducted. Patient went for a CT of his head, cervical spine, face. Chest and pelvic x-ray also performed. Patient is no complaints at this time. Laboratory studies are reviewed and demonstrates an elevated CK of 2884. Troponin 0.062. BNP is 7120. Urinalysis does demonstrate bacteria. CT of the brain and cervical spine demonstrates no acute intracranial process pelvic x-ray demonstrates no acute fractures. Chest x-ray demonstrates mild congestive heart failure. Right lower lobe pneumonia not excluded. Blood cultures obtained. Patient given a dose of Rocephin and azithromycin. Pacemaker is interrogated and does demonstrate episodes of A. fib. Patient was given a dose of Decadron for his uvula swelling. Patient will be continued on his Eliquis for his elevated troponin. I will continue gentle fluid hydration for his elevated CK. This is discussed with the patient's daughter who agreed. I will place cardiology and neurology consultation. Patient is currently awaiting a bed on the floor - Lab Data Result diagrams: 02/05/21 06:25 02/06/21 09:01 Lab Results 01/31/21 01/31/21 01/31/21 Range/Units 19:51 19:51 19:51 WBC 8.2 (3.8-10.6) k/uL RBC 4.58 (4.30-5.90) m/uL Hgb 15.3 (13.0-17.5) gm/dL Hct 45.8 (39.0-53.0) % MCV 100.0 (80.0-100.0) fL MCH 33.4 (25.0-35.0) pg MCHC 33.4 (31.0-37.0) g/dL RDW 15.0 (11.5-15.5) % Plt Count 112 L (150-450) k/uL MPV 9.0 Neutrophils % 88 % Lymphocytes % 3 % Monocytes % 6 % Eosinophils % 1 % Basophils % 1 % Neutrophils # 7.1 (1.3-7.7) k/uL Lymphocytes # 0.3 L (1.0-4.8) k/uL Monocytes # 0.5 (0-1.0) k/uL Eosinophils # 0.1 (0-0.7) k/uL Basophils # 0.1 (0-0.2) k/uL Macrocytosis Slight PT 12.3 H (9.0-12.0) sec INR 1.2 H (<1.2) APTT 24.0 (22.0-30.0) sec Sodium (137-145) mmol/L Potassium (3.5-5.1) mmol/L Chloride (98-107) mmol/L Carbon Dioxide (22-30) mmol/L Anion Gap mmol/L BUN (9-20) mg/dL Creatinine (0.66-1.25) mg/dL Est GFR (CKD-EPI)AfAm (>60 ml/min/1.73 sqM) Est GFR (CKD-EPI)NonAf (>60 ml/min/1.73 sqM) Glucose (74-99) mg/dL POC Glucose (mg/dL) (75-99) mg/dL POC Glu Gut Dropper ID Lactic Ac Sepsis Rflx Plasma Lactic Acid Vince (0.7-2.0) mmol/L Calcium (8.4-10.2) mg/dL Total Bilirubin (0.2-1.3) mg/dL AST (17-59) U/L ALT (4-49) U/L Alkaline Phosphatase (38-126) U/L Creatine Kinase (55-170) U/L Troponin I (0.000-0.034) ng/mL NT-Pro-B Natriuret Pep pg/mL Total Protein (6.3-8.2) g/dL Albumin (3.5-5.0) g/dL TSH (0.465-4.680) mIU/L Urine Color Yellow Urine Appearance Cloudy (Clear) Urine pH 5.0 (5.0-8.0) Ur Specific [place] 1.026 (1.001-1.035) Urine Protein 1+ H (Negative) Urine Glucose (UA) 1+ H (Negative) Urine Ketones 1+ H (Negative) Urine Blood Moderate H (Negative) Urine Nitrite Negative (Negative) Urine Bilirubin Negative (Negative) Urine Urobilinogen 3.0 (<2.0) mg/dL Ur Leukocyte Esterase Small H (Negative) Urine RBC 1 (0-5) /hpf Urine WBC 8 H (0-5) /hpf Urine Bacteria Occasional H (None) /hpf Hyaline Casts 4 H (0-2) /lpf Urine Mucus Few H (None) /hpf Urine Yeast (Budding) Occasional H (None) /hpf Urine Opiates Screen Not Detected (NotDetected) Ur Oxycodone Screen Not Detected (NotDetected) Urine Methadone Screen Not Detected (NotDetected) Ur Propoxyphene Screen Not Detected (NotDetected) Ur Barbiturates Screen Not Detected (NotDetected) U Tricyclic Antidepress Not Detected (NotDetected) Ur Phencyclidine Scrn Not Detected (NotDetected) Ur Amphetamines Screen Not Detected (NotDetected) U Methamphetamines Scrn Not Detected (NotDetected) U Benzodiazepines Scrn Not Detected (NotDetected) Urine Cocaine Screen Not Detected (NotDetected) U Marijuana (THC) Screen Not Detected (NotDetected) Coronavirus (PCR) (Not Detectd) 01/31/21 01/31/21 01/31/21 Range/Units 19:51 19:51 19:51 WBC (3.8-10.6) k/uL RBC (4.30-5.90) m/uL Hgb (13.0-17.5) gm/dL Hct (39.0-53.0) % MCV (80.0-100.0) fL MCH (25.0-35.0) pg MCHC (31.0-37.0) g/dL RDW (11.5-15.5) % Plt Count (150-450) k/uL MPV Neutrophils % % Lymphocytes % % Monocytes % % Eosinophils % % Basophils % % Neutrophils # (1.3-7.7) k/uL Lymphocytes # (1.0-4.8) k/uL Monocytes # (0-1.0) k/uL Eosinophils # (0-0.7) k/uL Basophils # (0-0.2) k/uL Macrocytosis PT (9.0-12.0) sec INR (<1.2) APTT (22.0-30.0) sec Sodium 138 (137-145) mmol/L Potassium 4.4 (3.5-5.1) mmol/L Chloride 104 (98-107) mmol/L Carbon Dioxide 25 (22-30) mmol/L Anion Gap 9 mmol/L BUN 44 H (9-20) mg/dL Creatinine 1.16 (0.66-1.25) mg/dL Est GFR (CKD-EPI)AfAm 68 (>60 ml/min/1.73 sqM) Est GFR (CKD-EPI)NonAf 59 (>60 ml/min/1.73 sqM) Glucose 193 H (74-99) mg/dL POC Glucose (mg/dL) (75-99) mg/dL POC Glu Gut Dropper ID Lactic Ac Sepsis Rflx Plasma Lactic Acid Vince 2.2 H* (0.7-2.0) mmol/L Calcium 9.1 (8.4-10.2) mg/dL Total Bilirubin 2.6 H (0.2-1.3) mg/dL AST 109 H (17-59) U/L ALT 28 (4-49) U/L Alkaline Phosphatase 39 (38-126) U/L Creatine Kinase 2884 H* (55-170) U/L Troponin I 0.062 H* (0.000-0.034) ng/mL NT-Pro-B Natriuret Pep pg/mL Total Protein 6.8 (6.3-8.2) g/dL Albumin 4.0 (3.5-5.0) g/dL TSH 1.930 (0.465-4.680) mIU/L Urine Color Urine Appearance (Clear) Urine pH (5.0-8.0) Ur Specific [place] (1.001-1.035) Urine Protein (Negative) Urine Glucose (UA) (Negative) Urine Ketones (Negative) Urine Blood (Negative) Urine Nitrite (Negative) Urine Bilirubin (Negative) Urine Urobilinogen (<2.0) mg/dL Ur Leukocyte Esterase (Negative) Urine RBC (0-5) /hpf Urine WBC (0-5) /hpf Urine Bacteria (None) /hpf Hyaline Casts (0-2) /lpf Urine Mucus (None) /hpf Urine Yeast (Budding) (None) /hpf Urine Opiates Screen (NotDetected) Ur Oxycodone Screen (NotDetected) Urine Methadone Screen (NotDetected) Ur Propoxyphene Screen (NotDetected) Ur Barbiturates Screen (NotDetected) U Tricyclic Antidepress (NotDetected) Ur Phencyclidine Scrn (NotDetected) Ur Amphetamines Screen (NotDetected) U Methamphetamines Scrn (NotDetected) U Benzodiazepines Scrn (NotDetected) Urine Cocaine Screen (NotDetected) U Marijuana (THC) Screen (NotDetected) Coronavirus (PCR) (Not Detectd) 01/31/21 01/31/21 01/31/21 Range/Units 19:51 19:51 20:19 WBC (3.8-10.6) k/uL RBC (4.30-5.90) m/uL Hgb (13.0-17.5) gm/dL Hct (39.0-53.0) % MCV (80.0-100.0) fL MCH (25.0-35.0) pg MCHC (31.0-37.0) g/dL RDW (11.5-15.5) % Plt Count (150-450) k/uL MPV Neutrophils % % Lymphocytes % % Monocytes % % Eosinophils % % Basophils % % Neutrophils # (1.3-7.7) k/uL Lymphocytes # (1.0-4.8) k/uL Monocytes # (0-1.0) k/uL Eosinophils # (0-0.7) k/uL Basophils # (0-0.2) k/uL Macrocytosis PT (9.0-12.0) sec INR (<1.2) APTT (22.0-30.0) sec Sodium (137-145) mmol/L Potassium (3.5-5.1) mmol/L Chloride (98-107) mmol/L Carbon Dioxide (22-30) mmol/L Anion Gap mmol/L BUN (9-20) mg/dL Creatinine (0.66-1.25) mg/dL Est GFR (CKD-EPI)AfAm (>60 ml/min/1.73 sqM) Est GFR (CKD-EPI)NonAf (>60 ml/min/1.73 sqM) Glucose (74-99) mg/dL POC Glucose (mg/dL) (75-99) mg/dL POC Glu Gut Dropper ID Lactic Ac Sepsis Rflx Y Plasma Lactic Acid Vince (0.7-2.0) mmol/L Calcium (8.4-10.2) mg/dL Total Bilirubin (0.2-1.3) mg/dL AST (17-59) U/L ALT (4-49) U/L Alkaline Phosphatase (38-126) U/L Creatine Kinase (55-170) U/L Troponin I (0.000-0.034) ng/mL NT-Pro-B Natriuret Pep 7120 pg/mL Total Protein (6.3-8.2) g/dL Albumin (3.5-5.0) g/dL TSH (0.465-4.680) mIU/L Urine Color Urine Appearance (Clear) Urine pH (5.0-8.0) Ur Specific [place] (1.001-1.035) Urine Protein (Negative) Urine Glucose (UA) (Negative) Urine Ketones (Negative) Urine Blood (Negative) Urine Nitrite (Negative) Urine Bilirubin (Negative) Urine Urobilinogen (<2.0) mg/dL Ur Leukocyte Esterase (Negative) Urine RBC (0-5) /hpf Urine WBC (0-5) /hpf Urine Bacteria (None) /hpf Hyaline Casts (0-2) /lpf Urine Mucus (None) /hpf Urine Yeast (Budding) (None) /hpf Urine Opiates Screen (NotDetected) Ur Oxycodone Screen (NotDetected) Urine Methadone Screen (NotDetected) Ur Propoxyphene Screen (NotDetected) Ur Barbiturates Screen (NotDetected) U Tricyclic Antidepress (NotDetected) Ur Phencyclidine Scrn (NotDetected) Ur Amphetamines Screen (NotDetected) U Methamphetamines Scrn (NotDetected) U Benzodiazepines Scrn (NotDetected) Urine Cocaine Screen (NotDetected) U Marijuana (THC) Screen (NotDetected) Coronavirus (PCR) Not Detected (Not Detectd) 01/31/21 Range/Units 20:48 WBC (3.8-10.6) k/uL RBC (4.30-5.90) m/uL Hgb (13.0-17.5) gm/dL Hct (39.0-53.0) % MCV (80.0-100.0) fL MCH (25.0-35.0) pg MCHC (31.0-37.0) g/dL RDW (11.5-15.5) % Plt Count (150-450) k/uL MPV Neutrophils % % Lymphocytes % % Monocytes % % Eosinophils % % Basophils % % Neutrophils # (1.3-7.7) k/uL Lymphocytes # (1.0-4.8) k/uL Monocytes # (0-1.0) k/uL Eosinophils # (0-0.7) k/uL Basophils # (0-0.2) k/uL Macrocytosis PT (9.0-12.0) sec INR (<1.2) APTT (22.0-30.0) sec Sodium (137-145) mmol/L Potassium (3.5-5.1) mmol/L Chloride (98-107) mmol/L Carbon Dioxide (22-30) mmol/L Anion Gap mmol/L BUN (9-20) mg/dL Creatinine (0.66-1.25) mg/dL Est GFR (CKD-EPI)AfAm (>60 ml/min/1.73 sqM) Est GFR (CKD-EPI)NonAf (>60 ml/min/1.73 sqM) Glucose (74-99) mg/dL POC Glucose (mg/dL) 186 H (75-99) mg/dL POC Glu Gut Dropper ID Leah Diaz Lactic Ac Sepsis Rflx Plasma Lactic Acid Vince (0.7-2.0) mmol/L Calcium (8.4-10.2) mg/dL Total Bilirubin (0.2-1.3) mg/dL AST (17-59) U/L ALT (4-49) U/L Alkaline Phosphatase (38-126) U/L Creatine Kinase (55-170) U/L Troponin I (0.000-0.034) ng/mL NT-Pro-B Natriuret Pep pg/mL Total Protein (6.3-8.2) g/dL Albumin (3.5-5.0) g/dL TSH (0.465-4.680) mIU/L Urine Color Urine Appearance (Clear) Urine pH (5.0-8.0) Ur Specific [place] (1.001-1.035) Urine Protein (Negative) Urine Glucose (UA) (Negative) Urine Ketones (Negative) Urine Blood (Negative) Urine Nitrite (Negative) Urine Bilirubin (Negative) Urine Urobilinogen (<2.0) mg/dL Ur Leukocyte Esterase (Negative) Urine RBC (0-5) /hpf Urine WBC (0-5) /hpf Urine Bacteria (None) /hpf Hyaline Casts (0-2) /lpf Urine Mucus (None) /hpf Urine Yeast (Budding) (None) /hpf Urine Opiates Screen (NotDetected) Ur Oxycodone Screen (NotDetected) Urine Methadone Screen (NotDetected) Ur Propoxyphene Screen (NotDetected) Ur Barbiturates Screen (NotDetected) U Tricyclic Antidepress (NotDetected) Ur Phencyclidine Scrn (NotDetected) Ur Amphetamines Screen (NotDetected) U Methamphetamines Scrn (NotDetected) U Benzodiazepines Scrn (NotDetected) Urine Cocaine Screen (NotDetected) U Marijuana (THC) Screen (NotDetected) Coronavirus (PCR) (Not Detectd) Disposition Clinical Impression: Systolic CHF, Fall, Rhabdomyolysis, CAP (community acquired pneumonia), UTI (urinary tract infection), Uvular swelling Disposition: ADMITTED IP TO THIS [facility] Condition: Stable Is patient prescribed a controlled substance at d/c from ED?: No Decision to Admit Reason: Admit from EC Decision Date: 01/31/21 Decision Time: 22:50
[2021-01-31 20:05] LABS: Basophils # (A) 0.1 k/uL (0-0.2); Basophils % (A) 1 %; Eosinophils # (A) 0.1 k/uL (0-0.7); Eosinophils % (A) 1 %; HCT 45.8 % (39.0-53.0); HGB 15.3 gm/dL (13.0-17.5); Lymphocytes # (A) 0.3 k/uL (1.0-4.8); Lymphocytes % (A) 3 %; MCH 33.4 pg (25.0-35.0); MCHC 33.4 g/dL (31.0-37.0); Macrocytosis Slight; Monocytes # (A) 0.5 k/uL (0-1.0); Monocytes % (A) 6 %; Neutrophils # (A) 7.1 k/uL (1.3-7.7); Neutrophils % (A) 88 %; Platelet Count 112 k/uL (150-450); RBC 4.58 m/uL (4.30-5.90); WBC 8.2 k/uL (3.8-10.6)
[2021-01-31 20:13] LABS: INR 1.2 (<1.2); Prothrombin Time 12.3 sec (9.0-12.0)
[2021-01-31 20:15] LABS: Calcium 9.1 mg/dL (8.4-10.2); Potassium 4.4 mmol/L (3.5-5.1); Total Bilirubin 2.6 mg/dL (0.2-1.3); Total Protein 6.8 g/dL (6.3-8.2)
[2021-01-31 20:19] LABS: Appearance,Urine Cloudy (Clear); Bacteria,Urine Occasional /hpf; Bilirubin,Urine Negative (Negative); Blood,Urine Moderate (Negative); Budding Yeast,Urine Occasional /hpf; Color,Urine Yellow; Glucose,Urine (UA) 1+ (Negative); Hyaline Casts,Urine 4 /lpf (0-2); Ketones,Urine 1+ (Negative); Leukocyte Esterase,Urine Small (Negative); Mucus,Urine Few /hpf; Nitrite,Urine Negative (Negative); Protein,Urine 1+ (Negative); RBC,Urine 1 /hpf (0-5); Specific Gravity,Urine 1.026 (1.001-1.035); WBC,Urine 8 /hpf (0-5)
[2021-01-31 20:41] LABS: Amphetamine Screen,Urine Not Detected (NotDetected); Barbiturate Screen,Urine Not Detected (NotDetected); Benzodiazepines Screen,Urine Not Detected (NotDetected); Cocaine Screen,Urine Not Detected (NotDetected); Methadone Screen, Urine Not Detected (NotDetected); Opiate Screen,Urine Not Detected (NotDetected); Oxycodone Screen, Urine Not Detected (NotDetected); Phencyclidine Screen,Urine Not Detected (NotDetected); Tricyclic Antidepressant,Urine Not Detected (NotDetected); Urn Cannabinoid Scrn Not Detected (NotDetected)
[2021-01-31 20:49] LABS: Glucose,Whole Blood 186 mg/dL (75-99)
--- NOTE | 2021-01-31 20:55 | CT ---
EXAMINATION TYPE: CT brain angel wo con DATE OF EXAM: 01/31/2021 COMPARISON: None HISTORY: Facial swelling. Headache. Neck pain. CT DLP: 1101.5 mGycm Automated exposure control for dose reduction was used. There is diffuse cerebral atrophy. There is no mass effect nor midline shift. There is no sign of int racranial hemorrhage. Calvarium is intact. Cervical vertebra have normal alignment. Posterior elements are intact. There is mild disc space narr owing at C4-5. Facet joints are intact. There is normal aeration of the mastoid sinuses. IMPRESSION: Cerebral atrophy. No acute intracranial abnormality. Minor degenerative changes in the cervical spine. No fracture seen. No evidence of a soft tissue mass involving the visualized facial bones including the orbits and uppe r maxilla.
--- NOTE | 2021-01-31 20:58 | CT ---
EXAMINATION TYPE: CT facial bones wo con DATE OF EXAM: 01/31/2021 COMPARISON: None HISTORY: Facial swelling. CT DLP: 1101.5 mGycm Automated exposure control for dose reduction was used. Images were obtained from the bottom of the mandible to the top of the frontal sinuses without contra st. There is normal aeration of the mastoid sinuses. External auditory canals appear normal. Mandibular r ing appears intact. The zygomatic arches appear intact. Orbital margins are intact. Nasal bone is int act. There is no evidence of retro-orbital mass. The globes are symmetric. There is no evidence of or bital blowout fracture. Soft tissue swelling of the scalp over the frontal bone. IMPRESSION: Negative CT scan of the facial bones. No fracture seen. No evidence of a soft tissue mass. Mild frontal scalp soft tissue swelling.
--- NOTE | 2021-01-31 21:00 | XR ---
EXAMINATION TYPE: XR pelvis AP view DATE OF EXAM: 01/31/2021 COMPARISON: NONE HISTORY: Difficulty breathing. Fall. TECHNIQUE: Single view FINDINGS: Pelvic ring is intact. Sacroiliac joints are intact. Proximal femurs are intact. There is n o evidence of hip dysplasia. IMPRESSION: No acute abnormality of the pelvis. No fracture seen.
--- NOTE | 2021-01-31 21:01 | XR ---
EXAMINATION TYPE: XR chest 2V DATE OF EXAM: 01/31/2021 COMPARISON: 02/02/2019 HISTORY: Fall. Pain. TECHNIQUE: FINDINGS: There is blunting right costophrenic angle. Heart is enlarged. There is some pulmonary vasc ular congestion. There is right axillary pacemaker. There are chest leads. Left lung is fairly clear. IMPRESSION: There is probably some mild chronic congestive heart failure that is increased compared t o old exam. Increased right pleural effusion compared to old exam. Right lower lobe pneumonia not exc luded.
[2021-01-31] MEDS ORDERED: cefTRIAXone IN SWFI 1,000 MG/10 ML SYRINGE IVP STA (21:22)
[2021-01-31] MEDS ORDERED: AZITHROMYCIN 500 MG in SODIUM CHLORIDE 0.9% 250 ML IVPB STA (21:26)
[2021-01-31] MEDS: SODIUM CHLORIDE 0.9% 1,000 ML IV SCH (21:56)
[2021-01-31] MEDS ORDERED: NALOXONE 0.4 MG/ML 1 ML VIAL IV PRN (22:50)
[2021-01-31] MEDS ORDERED: DEXAMETHASONE SOD PHOSPHATE 10 MG/ML 1 ML VIAL IV STA (23:02)
[2021-02-01] MEDS: APIXABAN 2.5 MG TABLET PO SCH ×3 (00:38→20:24)
[2021-02-01 03:51] LABS: Basophils % (A) 0 %; Eosinophils % (A) 0 %; HCT 37.1 % (39.0-53.0); Lymphocytes # (A) 0.2 k/uL (1.0-4.8); Lymphocytes % (A) 4 %; MCH 32.7 pg (25.0-35.0); MCHC 32.3 g/dL (31.0-37.0); MCV 101.3 fL (80.0-100.0); Macrocytosis Slight; Monocytes # (A) 0.3 k/uL (0-1.0); Monocytes % (A) 6 %; Neutrophils # (A) 5.1 k/uL (1.3-7.7); Neutrophils % (A) 89 %; RBC 3.67 m/uL (4.30-5.90); RDW 15.3 % (11.5-15.5); WBC 5.7 k/uL (3.8-10.6)
[2021-02-01 03:55] LABS: Calcium 8.7 mg/dL (8.4-10.2); Potassium 4.2 mmol/L (3.5-5.1)
[2021-02-01 05:39] LABS: Target Cells Present
[2021-02-01 05:40] LABS: Platelet Count 86 k/uL (150-450)
[2021-02-01] MEDS ORDERED: CLOTRIMAZOLE 1% CREAM 15 GM TUBE TOPICAL PRN (09:00)
[2021-02-01] MEDS: FENOFIBRATE 160 MG TAB PO SCH (09:10)
[2021-02-01] MEDS: METOPROLOL TARTRATE 50 MG TAB PO SCH ×2 (09:10→20:24)
[2021-02-01] MEDS: SODIUM CHLORIDE 0.9% 1,000 ML IV SCH (09:10)
--- NOTE | 2021-02-01 09:14 | P.CNNES ---
History of Present Illness Consult date: 02/01/21 Requesting physician: Kalpana Patel Reason for Consult: syncope vs seizure History of Present Illness: This is an 80 old gentleman with medical history chronic heart failure status post pacemaker, diabetes mellitus, hypertension and hard of hearing that presented to the emergency department 01/31/2021 after being found down on the kitchen floor. History is obtained from the patient's glvyvois-ad-kwh(Cassy) who was at bedside. She stated that the patient was doing well last on this past Thursday at 7pm via phone. Then yesterday when the the patient's the son attempted to call our contact the patient around 11:00 the patient did not respond. The patient's son got worried, therefore the patient's grand-daughter went to the patient's house between 5-6pm and found the patient on the floor cover in soil. Patient did not have any blood around his mouth no foaming around the mouth. The patient does not have any history of seizures in the past. But they noticed that the patient had right facial droop. Per the patient's iojuqgwg-sh-jkx she stated that the patient the has significant cardiac problems and that they were told yesterday that the patient had the atrial fibrillation. She denied to the patient had any focal deficit besides the facial droop but she stated that it's proving today compared to yesterday. Patient stated that last thing he remembers was going to the kitchen that to get as medicine and that's all he remembers. Patient is independent walks independently without any difficulty lives by himself but has his family check up on him on a daily basis. He does use hearing aids on both years because of hearing loss and he talks with the mild slurred speech per the daughter and currently he is talking at baseline but continues to have the mild right facial droop according to the jzjrpjhl-gh-ivw Patient is on Eliquis 2.5 mg daily, feonfibrate. About 4 years ago the patient the had a cardiac event per the patient's pwzjyquc-lp-ndp the in which he felt down the stairs and he had workup done at an outside facility and was told that that he had arrhythmia and that his fall was due to his cardiac reasons. As a result he had a pacemaker placed. As well as that around that L they and notified the family that the patient had a stroke in the past but the patient does not have any residual deficits. The hcwhkgso-et-qjz does not know the reasons why they stated that the patient had a stroke. Then about one year ago the patient was having very short of breath lethargic generalized tiredness and was told that it was due to his cardiac problem therefore has pacemaker was modified to keep in demand with a heart. Patient is on Eliquis because of the atrial fibrillation. He is on any antiplatelets or statins at. Again as I mentioned the patient does not have any neurological deficits from the past but there were told that he had a stroke by the cardiology team and not sure it's from imaging or not. Also as stated above patient does not have any history of seizures. Unknown his history. There is no family history of seizures as well. Workup in the hospital consisted of: Initial vital signs was blood pressure of 151/67, heart rate of 82, respiratory of 16, temperature of 97.8F oral and pulse ox of 97% on 2 L of nasal cannula. CT of the head is reported as cerebral atrophy. No acute intracranial abnormality. CT of the cervical spine is reported as minor degenerative changes in the cervical spine (in body of report it mentioned of C4-C5). No fracture seen. No evidence of soft tissue mass involving the visualized facial bones including the orbits and upper maxilla. CT of the facial bone is reported as negative CT scan of the facial bone. No f racture seen. No evidence of soft tissue mass. Mild frontal scalp soft tissue swelling. Chest x-ray was reported as there is probably some mild chronic congestive heart failure that is increased compared to old exam. Increased right pleural effusion compared to old exam. Right lower lobe pneumonia not excluded. EKG is reported as wide QRS rhythm. Nonspecific intraventricular block. Abnormal EKG. Initial white blood cell is 8.2 which is normal the MCV was initially is 100 which was normal and the repeat is 101.3 which is mildly elevated. The platelet initially is 112 in the repeat his 86. Initial serum glucose is 193 at. The CK level is 2884 which is elevated. The troponin is 0.062 which is elevated. Review of Systems Review of system: The 12 point system was reviewed and apparent positive and negative per HPI. Past Medical History Past Medical History: Heart Failure, Hypertension History of Any Multi-Drug Resistant Organisms: None Reported Past Surgical History: Orthopedic Surgery, Pacemaker Additional Past Surgical History / Comment(s): colonoscopy. repair lt toe Past Anesthesia/Blood Transfusion Reactions: No Reported Reaction Type of Cardiac Device: Biventricular Pacemaker, Permanent Pacemaker Device Placement Date:: 02-01-2019 Past Psychological History: No Psychological Hx Reported Smoking Status: Former smoker Past Alcohol Use History: None Reported Past Drug Use History: None Reported - Past Family History Mother Family Medical History: No Reported History Medications and Allergies Home Medications Medication Instructions Recorded Confirmed Type Fenofibrate Nanocrystallized 145 mg PO DAILY 02/16/15 01/31/21 History [Fenofibrate] Isosorbide Mononitrate ER [Imdur] 60 mg PO DAILY 02/16/15 01/31/21 History Metoprolol Tartrate [Lopressor] 100 mg PO BID 02/16/15 01/31/21 History hydrALAZINE HCL [Apresoline] 100 mg PO BID 02/16/15 01/31/21 History hydroCHLOROthiazide [Hydrodiuril] 25 mg PO DAILY 02/16/15 01/31/21 History metFORMIN HCL [Glucophage] 500 mg PO DAILY 02/16/15 01/31/21 History Apixaban [Eliquis] 2.5 mg PO BID 12/03/18 01/31/21 History lisinopriL 20 mg PO BID 12/03/18 01/31/21 History Furosemide [Lasix] 20 mg PO BID PRN 01/18/19 01/31/21 History Glimepiride [Amaryl] 1 mg PO BID 02/01/19 01/31/21 History Ergocalciferol [Vitamin D2 (1250 1,250 mcg PO Q7D 01/31/21 01/31/21 History Mcg = 75572 Iu)] Ketoconazole 2% Cream [Nizoral 2%] 1 applic TOPICAL DAILY PRN 01/31/21 01/31/21 History Allergies Allergy/AdvReac Type Severity Reaction Status Date / Time Penicillins AdvReac Unknown Verified 01/31/21 21:01 Physical Examination - Vital Signs Vital Signs: Vital Signs Temp Pulse Resp BP Pulse Ox 02/01/21 04:00 60 19 153/69 94 L 01/31/21 23:28 60 16 153/69 98 01/31/21 19:05 97.8 F 82 16 151/67 97 Intake and Output 01/31/21 02/01/21 02/01/21 22:59 06:59 14:59 Other: Weight 61.235 kg GENERAL: The patient is lying in bed and is not in acute distress. CHEST: The heart rate is regular rate rhythm. No murmurs to auscultation. No carotid bruit bilaterally. LUNG: Clear to auscultation bilaterally no wheezing noted throughout. Not labored breathing. ABDOMEN/GI: Bowel sounds present in all 4 quadrants. No tenderness to palpation throughout. NEUROLOGICAL: Higher mental function: The patient is awake, alert, oriented to self. He correctly chose he was in the hospital with option. He correctly state the month was January but the year was 2012. Patient is following simple commands. No aphasia and no neglect. Cranial nerves: The pupils are round, equal and reactive to light and accommodation. Visual mak are full to confrontation throughout. Extraocular movement is intact no nystagmus is noted. Facial sensation is normal to touch throughout. The facial strength is mild right lower facial droop. Hearing is moderately decrease bilaterally to hand rub. Tongue is midline and moved cktf-gt-ubzw without any difficulty. There is no tongue bite. Mild dysarthria is noted (chronic). Shoulder shrug is normal bilaterally. Motor: Gait is deferred. The strength is 5- over 5 throughout. Normal tone and bulk. Cerebellum: Normal finger to nose bilaterally. Sensation: Sensation is normal to touch throughout. Reflexes (right/left): 1+ throughout. Plantars are downgoing bilaterally. Results The TSH is 1.93 which is normal. AST 109 and that ALT of 28. Coagulation study: PT of 12.3, INR 1.2 and PTT of 24.0.' Coronavirus PCR is nondetected. Urine drug screen the basics is nondetected. - Laboratory Findings CBC and BMP: 02/01/21 02:56 02/01/21 02:56 Abnormal Lab Findings: Abnormal Labs 01/31/21 01/31/21 01/31/21 19:51 19:51 19:51 RBC Hgb Hct MCV Plt Count 112 L Lymphocytes # 0.3 L PT 12.3 H INR 1.2 H BUN Glucose POC Glucose (mg/dL) Plasma Lactic Acid Vince Total Bilirubin AST Creatine Kinase Troponin I Urine Protein 1+ H Urine Glucose (UA) 1+ H Urine Ketones 1+ H Urine Blood Moderate H Ur Leukocyte Esterase Small H Urine WBC 8 H Urine Bacteria Occasional H Hyaline Casts 4 H Urine Mucus Few H Urine Yeast (Budding) Occasional H 01/31/21 01/31/21 01/31/21 19:51 19:51 19:51 RBC Hgb Hct MCV Plt Count Lymphocytes # PT INR BUN 44 H Glucose 193 H POC Glucose (mg/dL) Plasma Lactic Acid Vince 2.2 H* Total Bilirubin 2.6 H AST 109 H Creatine Kinase 2884 H* Troponin I 0.062 H* Urine Protein Urine Glucose (UA) Urine Ketones Urine Blood Ur Leukocyte Esterase Urine WBC Urine Bacteria Hyaline Casts Urine Mucus Urine Yeast (Budding) 01/31/21 01/31/21 02/01/21 20:48 23:35 02:56 RBC Hgb Hct MCV Plt Count Lymphocytes # PT INR BUN Glucose POC Glucose (mg/dL) 186 H Plasma Lactic Acid Vince Total Bilirubin AST Creatine Kinase Troponin I 0.063 H* 0.056 H* Urine Protein Urine Glucose (UA) Urine Ketones Urine Blood Ur Leukocyte Esterase Urine WBC Urine Bacteria Hyaline Casts Urine Mucus Urine Yeast (Budding) 02/01/21 02/01/21 02:56 02:56 RBC 3.67 L Hgb 12.0 L D Hct 37.1 L MCV 101.3 H Plt Count 86 L Lymphocytes # 0.2 L PT INR BUN 42 H Glucose 167 H POC Glucose (mg/dL) Plasma Lactic Acid Vince Total Bilirubin AST Creatine Kinase Troponin I Urine Protein Urine Glucose (UA) Urine Ketones Urine Blood Ur Leukocyte Esterase Urine WBC Urine Bacteria Hyaline Casts Urine Mucus Urine Yeast (Budding) Assessment and Plan Assessment: This is an 80 old gentleman with significant heart failure status post pacemaker that presented to the emergency department 01/31/2021 after being found down on the kitchen floor. Currently he has mild right facial droop. According the patient dibcepoe-fe-fis he had the fall about 4 years ago and he had extensive workup and was told due to his heart failure Right lower facial droop likely due to acute ischemic stroke (especially with atrial fibrillation and other risk factors (hear failure, DM, Hypertension, age). Syncope seems due to cardiac etiology (Atrial fibrillation. Per patient daughter in law, per heart monitoring were controlled until yesterday and were told he was in Atrial fibrillation). Cannot exclude seizure in etiology but seem unlikely. Previous history of stroke without any neurological deficit (about 4 years ago were told by his cardiology he had a stroke possibly thru imaging) Thrombocytopenia Elevated troponin Heart failure status post pacemaker Hypertension Chronic history of diabetes Hard of hearing Plan: CT of the head is reported as cerebral atrophy. No acute intracranial a bnormality. CT of the cervical spine is reported as minor degenerative changes in the cervical spine (in body of report it mentioned of C4-C5). No fracture seen. No evidence of soft tissue mass involving the visualized facial bones including the orbits and upper maxilla. Patient is on Eliquis 2.5 mg 1 tablet twice a day. I recommend if possible discontinued Eliquis and for the patient to be on Plavix 75 mg for now until we get repeated images to evaluate for stroke size and in a day the patient can resume Eliquis on top of the Plavix 75 mg daily. I started the patient on Lipitor 40 mg daily at bedtime for secondary stroke prophylaxis Patient cannot get MRI because of the pacemaker but usually strokes usually is seen about 24-48 hours after initial presentation. REPEAT CT of the head for today in the afternoon. I ordered the carotid duplex, 2-D echo, lipid panel. I ordered a routine EEG. I will not start the patient on antiepileptic drug unless there is a platform discharges or seizure on the EEG. Every 4 neuro checks. Continue cardiac monitoring Cardiology is consulted. We'll defer the rest of the medical management to the primary team. The plan was discussed with the patient [id number]-[id number] (Cassy) who is at bedside and his nurse. Thank you for the consultation. Jameson Hernandez M.D. Neuro-hospitalist Time with Patient: Greater than 30
[2021-02-01 09:27] LABS: Cholesterol 87 mg/dL (<200); HDL Cholesterol 38 mg/dL (40-60); LDL Cholesterol,Calculated 29 mg/dL (0-99); Triglycerides 99 mg/dL (<150)
--- NOTE | 2021-02-01 10:42 | US ---
EXAMINATION TYPE: US carotid duplex BILAT DATE OF EXAM: 02/01/2021 COMPARISON: NONE CLINICAL HISTORY: Possible acute stroke. Acute onset facial swelling. Exam done portable. EXAM MEASUREMENTS: RIGHT: Peak Systolic Velocity (PSV) cm/sec ----- Right CCA: 37.5 ----- Right ICA: 47.8 ----- Right ECA: 57.1 ICA/CCA ratio: 1.3 RIGHT: End Diastole cm/sec ----- Right CCA: 7.5 ----- Right ICA: 10.2 ----- Right ECA: 5.9 LEFT: Peak Systolic Velocity (PSV) cm/sec ----- Left CCA: 52.2 ----- Left ICA: 50.0 ----- Left ECA: 42.7 ICA/CCA ratio: 1.0 LEFT: End Diastole cm/sec ----- Left CCA: 5.9 ----- Left ICA: 13.1 ----- Left ECA: 4.0 VERTEBRALS (direction of flow): Right Vertebral: Antegrade Left Vertebral: Antegrade Rhythm: Normal No significant stenosis. Grayscale images show no significant plaque bilaterally. Velocity measurements and ratios within norm al limits in the visualized portion of both internal carotid arteries. IMPRESSION: No hemodynamic significant stenosis seen in either internal carotid artery . Criteria for Assigning % of Stenosis / Diameter reduction (Estimation based on the indirect measurements of the internal carotid artery velocities (ICA PSV). 1. Normal (no stenosis)=ICA PSV < 125 cm/s: ratio < 2.0: ICA EDV<40 cm/s. 2. Less than 50% stenosis=ICA PSV < 125 cm/s: ratio < 2.0: ICA EDV<40 cm/s. 3. 50 to 69% stenosis=ICA PSV of 125 to 230 cm/s: ration 2.0 ? 4.0: ICA EDV 40-100 cm/s. 4. Greater than 70% stenosis to near occlusion= ICA PSV > 230 cm/s: ratio > 4.0: ICA EDV > 100 cm/s. 5. Near occlusion= ICA PSV velocities may be low or undetectable: variable ratio and ICA EDV. 6. Total occlusion=unable to detect flow.
--- NOTE | 2021-02-01 12:24 | CONS ---
CONSULTATION Dm Grossman is an 80-year-old elderly gentleman with a nonischemic cardiomyopathy, hypertension, hyperlipidemia, and type 2 diabetes. He has chronic atrial fibrillation. He also has a biventricular ICD that was placed in January. He had a cardiac catheterization which revealed noncritical CAD. This gentleman came into the hospital with an episode of what seems to be a fall of unclear etiology. Apparently he lives alone and his son called him and there was no answer and he sent the granddaughter to go in and see the patient and he was then apparently found at home unresponsive and was then brought to the emergency room. The patient's ubgpiwkb-ar-kmt gave most of the history and they spoke to him last at 7 p.m. and then after that they went to see him and I do not know exactly what time, but he was found lying down on the kitchen floor. He sounded a bit confused at 6 p.m. apparently he had some facial swelling. Whether it is being down on his face for some time is unclear, but CT scan of the head and neck do not reveal anything. The patient has history of CVA in the past, details are unclear, but he had no neurological deficits. His device has been interrogated and preliminary information suggests that there was no arrhythmia to explain the issue. There was no bradyarrhythmia or tachyarrhythmia and patient's pacemaker appears to be functioning well. His device was placed in January 2019. He was also seen by Neurology. CAT scan is negative. EEG is pending. The patient is very lethargic, confused, does not communicate well and granddaughter gave most of the history. He does not have any hypoglycemia. PAST MEDICAL HISTORY: 1. Hypertension. 2. Hyperlipidemia. 3. History of CVA. 4. History of nonischemic cardiomyopathy with a biventricular ICD. 5. Type 2 diabetes. MEDICATIONS: Medications at home include fenofibrate, Imdur 60 mg, metoprolol tartrate 100 mg b.i.d., hydralazine 100 mg b.i.d., metformin 500 mg daily, Eliquis 2.5 mg b.i.d., lisinopril 20 mg b.i.d., Lasix 20 mg b.i.d., glimepiride 1 mg b.i.d. Patient also has a type 2 diabetes mellitus and chronic atrial fibrillation as well. PHYSICAL EXAMINATION: On examination, his blood pressure is 150/70, pulse rate is 70-80, appears to be atrial fib, occasional paced beats are seen. HEENT: Unremarkable. Fundus was not examined by me. Neck is supple. No carotid bruit. Heart exam reveals S1, S2 with a short systolic murmur. Lungs reveal bilateral air entry. No rales or rhonchi. Abdomen is soft, nontender. Lower extremities reveal diminished pulses. CENTRAL NERVOUS SYSTEM: Patient is able to move all 4 extremities, but I did not do a meaningful examination. EKG revealed a ventricular paced rhythm with probable underlying atrial fibrillation. LABORATORY DATA: Laboratory data revealed troponins of 0.06, which are pretty much flat 3 numbers. CK is over 2800. Renal function is preserved. The patient is being hydrated. IMPRESSION: 1. Cannot exclude cerebrovascular accident, although initial CT is unremarkable. 2. Episode of fall, etiology is unclear. I doubt cardiac etiology. 3. Status post ICD biventricular for nonischemic cardiomyopathy. Device interrogation did not reveal any significant arrhythmia. 4. Type 2 diabetes. 5. Hypertension. 6. Hyperlipidemia. RECOMMENDATIONS: I am recommending that we hydrate him cautiously. Patient appears dehydrated. Further input from Nephrology is necessary. We will continue to monitor him and resume most of his medications after adequate hydration. My evaluation suggests that we are not dealing with any cardiac arrhythmia. We are probably dealing more with a neurological event. I will await further input from the neurologist, Dr. Hernandez. Thank you very much for the consult. MMODL / IJN: [id number] /
--- NOTE | 2021-02-01 13:00 | EEG ---
ELECTROENCEPHALOGRAM REPORT DATE OF SERVICE: 02/01/2021 CLINICAL HISTORY: This is an 80-year-old gentleman that presented to ED after being found down by family on 01/31/2021. The video EEG is obtained to evaluate for seizure and epileptiform activity. RELEVANT MEDICATION: The patient is not on any an antiepileptic drug. EEG TYPE: A routine 21 channel EEG is performed with video using the 10/20 electrode placement system. DESCRIPTION: Wakefulness is only obtained. During wakefulness, there is a posterior dominant rhythm of heb-vb-webdqicu voltage, reactive, well modulated, of 8-8.5 hertz activity. There is no physiological stage II sleep seen. There is no focal slowing seen. There is rare moderate to high voltage of 1-1.5 hertz of generalized rhythmic delta activity with frontal predominance (GIRDA). Interictal and ictal are none. ACTIVATION PROCEDURES: Photic stimulation did not evoke a posterior driving response. There is no abnormality during the photic stimulation. Hyperventilation is not performed. CLINICAL INTERPRETATION: This is a normal routine EEG. There are no focal slowing, epileptiform discharge or seizure on the EEG. Clinical correlation is recommended. MMNESTORL / IJN: [id number] / PARDEEP
--- NOTE | 2021-02-01 13:08 | CT ---
CT CHEST FOR PULMONARY EMBOLISM. EXAMINATION TYPE: CT chest angio for PE DATE OF EXAM: 02/01/2021 INDICATION: Shortness of breath CT DLP: 416.2 mGycm, Automated exposure control for dose reduction was used. CONTRAST: Patient injected with 100 mL of Isovue 370. COMPARISON: None TECHNIQUE: CT of the chest is performed on a spiral scan at 2 mm thick sections. Study is performed with intravenous contrast timed for evaluation for pulmonary embolism. This will limit additional po rtions of the evaluation. 3-D MIP images reconstructed by the technologist are reviewed on the compu ter in the coronal and sagittal planes. FINDINGS: No persistent filling defects are evident to suggest an acute pulmonary embolism. Small amount reflux into the inferior vena cava is evident. No septal deviation is noted. Mild right heart strain No mediastinal or hilar adenopathy enlarged by CT criteria is evident. The ascending aorta diameter at the level of the main pulmonary artery is 4.8 cm. The main pulmonary artery diameter at the bifur cation is 3.9 cm. There is a small to moderate right pleural effusion. Limited CT section through the upper abdomen are unremarkable. IMPRESSIONS: 1. No acute pulmonary embolism. 2. Small to moderate right pleural effusion.
--- NOTE | 2021-02-01 13:10 | ECHOF ---
Referral Reason:stroke MEASUREMENTS -------- HEIGHT: 160.0 cm WEIGHT: 61.2 kg BP: 153/69 RVIDd: 3.7 cm (< 3.3) IVSd: 1.3 cm (0.6 - 1.1) LVIDd: 5.6 cm (3.9 - 5.3) LVPWd: 1.4 cm (0.6 - 1.1) IVSs: 1.8 cm LVIDs: 4.3 cm LVPWs: 1.4 cm LA Diam: 4.1 cm (2.7 - 3.8) LAESV Index (A-L): 48.83 ml/m Ao Diam: 3.5 cm (2.0 - 3.7) AV Cusp: 2.3 cm (1.5 - 2.6) MV EXCURSION: 21.518 mm (> 18.000) MV EF SLOPE: 99 mm/s (70 - 150) EPSS: 1.8 cm MV E Edward: 1.15 m/s MV DecT: 129 ms MV A Edward: 0.36 m/s MV E/A Ratio: 3.17 AR PHT: 1008 ms RAP: 5.00 mmHg RVSP: 59.03 mmHg FINDINGS -------- Paced rhythm. This was a technically good study. The left ventricular size is normal. There is moderate concentric left ventricular hypertrophy. O verall left ventricular systolic function is mild-moderately impaired with, an EF between 40 - 45 %. The right ventricle is mild to moderately enlarged. LA is severely dilated >40 ml/m2 The right atrium is normal in size. Interatrial and interventricular septum intact. There is mild aortic valve sclerosis. There is mild aortic regurgitation. The mitral valve leaflets are mildly thickened. Mild mitral annular calcification present. Mild m itral regurgitation is present. Mild tricuspid regurgitation present. There is severe pulmonary hypertension. The right ventricul ar systolic pressure, as measured by Doppler, is 59.03mmHg. Trace/mild (physiologic) pulmonic regurgitation. The aortic root size is normal. Normal inferior vena cava with normal inspiratory collapse consistent with estimated right atrial pre ssure of 5 mmHg. There is no pericardial effusion. CONCLUSIONS -------- 1. The left ventricular size is normal. 2. There is moderate concentric left ventricular hypertrophy. 3. Overall left ventricular systolic function is mild-moderately impaired with, an EF between 40 - 45 %. 4. The right ventricle is mild to moderately enlarged. 5. LA is severely dilated >40 ml/m2 6. There is mild aortic valve sclerosis. 7. There is mild aortic regurgitation. 8. The mitral valve leaflets are mildly thickened. 9. Mild mitral annular calcification present. 10. Mild mitral regurgitation is present. 11. Mild tricuspid regurgitation present. 12. There is severe pulmonary hypertension. 13. The right ventricular systolic pressure, as measured by Doppler, is 59.03mmHg. 14. Trace/mild (physiologic) pulmonic regurgitation. 15. There is no pericardial effusion. CREDIT SUPPORT SPECIALIST: Indu Kulkarni RDCS
--- NOTE | 2021-02-01 13:14 | CT ---
EXAMINATION TYPE: CT brain wo con DATE OF EXAM: 02/01/2021 COMPARISON: 01/31/2021 INDICATION: Weakness DLP: 1137 mGycm, Automated exposure control for dose reduction was used. CONTRAST: None CT of the brain is performed utilizing 3 mm thick sections through the posterior fossa and 3 mm thick sections through the remaining calvarium. Study is performed within 24 hours of arrival to the hosp ital. No abnormal hyperdensity is present to suggest an acute intracranial hemorrhage. No mass lesion is evident. No acute infarcts are evident. There is an old lacunar infarct in the right caudate head. Mild perive ntricular white matter hypodensity is present likely on the basis of chronic white matter ischemic ch anges. Ventricles and sulci are prominent for the patient age. Paranasal sinuses and mastoid air cells within the aeama-un-yskg are clear. IMPRESSIONS: 1. Atrophy with chronic appearing periventricular white matter ischemic changes.
--- NOTE | 2021-02-01 14:35 | P.HPIM ---
History of Present Illness Patient is a pleasant 80-year-old that male who lives by himself at an apartment with some assistance was found unresponsive. Patient's family found him down on the kitchen floor after no contact for a day with the son or [id number]. Patient is able to provide me history patient is alert oriented times around 2- 3. Neurology evaluated the patient they believe patient had a facial droop towards the left side he does have mild drooping although no other weakness or deficits because of which patient underwent extensive stroke workup CT of the head showing cerebral atrophy CT of the spine showing degenerative disc disease chest x-ray showing significant pulmonary venous markings. Patient is also hypoxic and is requiring 5 L of oxygen chest x-ray is not really conclusive and I cannot completely rule out pneumonia because of that reason obtain a CT of the chest which did not show any pneumonia did show pleural effusion moderate, patient also had a CT angios the head and neck carotid Doppler EEG all of which are essentially within normal limits. Patient has elevated MCV I'm opting B12 levels. Patient is able to provide me history although he is not sure how he lost consciousness. Patient is also being evaluated for seizures. Review of Systems REVIEW OF SYSTEMS: CONSTITUTIONAL: No fever, no malaise, no fatigue. HEENT: No recent visual problems or hearing problems. Denied any sore throat. CARDIOVASCULAR: No chest pain, orthopnea, PND, no palpitations, no syncope. PULMONARY: No shortness of breath, no cough, no hemoptysis. GASTROINTESTINAL: No diarrhea, no nausea, no vomiting, no abdominal pain. NEUROLOGICAL: No headaches, no weakness, no numbness. HEMATOLOGICAL: Denies any bleeding or petechiae. GENITOURINARY: Denies any burning micturition, frequency, or urgency. MUSCULOSKELETAL/RHEUMATOLOGICAL: Denies any joint pain, swelling, or any muscle pain. ENDOCRINE: Denies any polyuria or polydipsia. The rest of the 14-point review of systems is negative. 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 repair lt toe Past Anesthesia/Blood Transfusion Reactions: No Reported Reaction Type of Cardiac Device: Biventricular Pacemaker, Permanent Pacemaker Device Placement Date:: 02-01-2019 Past Psychological History: No Psychological Hx Reported Smoking Status: Former smoker Past Alcohol Use History: None Reported Past Drug Use History: None Reported - Past Family History Mother Family Medical History: No Reported History Medications and Allergies Home Medications Medication Instructions Recorded Confirmed Type Fenofibrate Nanocrystallized 145 mg PO DAILY 02/16/15 01/31/21 History [Fenofibrate] Isosorbide Mononitrate ER [Imdur] 60 mg PO DAILY 02/16/15 01/31/21 History Metoprolol Tartrate [Lopressor] 100 mg PO BID 02/16/15 01/31/21 History hydrALAZINE HCL [Apresoline] 100 mg PO BID 02/16/15 01/31/21 History hydroCHLOROthiazide [Hydrodiuril] 25 mg PO DAILY 02/16/15 01/31/21 History metFORMIN HCL [Glucophage] 500 mg PO DAILY 02/16/15 01/31/21 History Apixaban [Eliquis] 2.5 mg PO BID 12/03/18 01/31/21 History lisinopriL 20 mg PO BID 12/03/18 01/31/21 History Furosemide [Lasix] 20 mg PO BID PRN 01/18/19 01/31/21 History Glimepiride [Amaryl] 1 mg PO BID 02/01/19 01/31/21 History Ergocalciferol [Vitamin D2 (1250 1,250 mcg PO Q7D 01/31/21 01/31/21 History Mcg = 94672 Iu)] Ketoconazole 2% Cream [Nizoral 2%] 1 applic TOPICAL DAILY PRN 01/31/21 01/31/21 History Allergies Allergy/AdvReac Type Severity Reaction Status Date / Time Penicillins AdvReac Unknown Verified 01/31/21 21:01 Physical Exam Vitals: Vital Signs Temp Pulse Resp BP Pulse Ox 02/01/21 12:45 98.5 F 60 16 150/90 95 02/01/21 09:25 99.1 F 60 18 152/72 97 02/01/21 04:00 60 19 153/69 94 L 01/31/21 23:28 60 16 153/69 98 01/31/21 19:05 97.8 F 82 16 151/67 97 Intake and Output 01/31/21 02/01/21 02/01/21 22:59 06:59 14:59 Other: Weight 61.235 kg PHYSICAL EXAMINATION: GENERAL: The patient is alert and oriented x3, patient is on mild respiratory distress. Well developed, well nourished. HEENT: Pupils are round and equally reacting to light. EOMI. No scleral icterus. No conjunctival pallor. Normocephalic, atraumatic. No pharyngeal erythema. No thyromegaly. CARDIOVASCULAR: S1 and S2 present. No murmurs, rubs, or gallops. Does appear to have elevated JVD loud P2 no pedal edema PULMONARY: Chest is clear to auscultation, no wheezing or crackles. ABDOMEN: Soft, nontender, nondistended, normoactive bowel sounds. No palpable organomegaly. MUSCULOSKELETAL: No joint swelling or deformity. EXTREMITIES: No cyanosis, clubbing, or pedal edema. NEUROLOGICAL: Gross neurological examination did not reveal any focal deficits. SKIN: No rashes. Results CBC & Chem 7: 02/01/21 02:56 02/01/21 02:56 Labs: Abnormal Lab Results - Last 24 Hours (Table) 01/31/21 01/31/21 01/31/21 Range/Units 19:51 19:51 19:51 RBC (4.30-5.90) m/uL Hgb (13.0-17.5) gm/dL Hct (39.0-53.0) % MCV (80.0-100.0) fL Plt Count 112 L (150-450) k/uL Lymphocytes # 0.3 L (1.0-4.8) k/uL PT 12.3 H (9.0-12.0) sec INR 1.2 H (<1.2) BUN (9-20) mg/dL Glucose (74-99) mg/dL POC Glucose (mg/dL) (75-99) mg/dL Plasma Lactic Acid Vince (0.7-2.0) mmol/L Total Bilirubin (0.2-1.3) mg/dL AST (17-59) U/L Creatine Kinase (55-170) U/L Troponin I (0.000-0.034) ng/mL HDL Cholesterol (40-60) mg/dL Urine Protein 1+ H (Negative) Urine Glucose (UA) 1+ H (Negative) Urine Ketones 1+ H (Negative) Urine Blood Moderate H (Negative) Ur Leukocyte Esterase Small H (Negative) Urine WBC 8 H (0-5) /hpf Urine Bacteria Occasional H (None) /hpf Hyaline Casts 4 H (0-2) /lpf Urine Mucus Few H (None) /hpf Urine Yeast (Budding) Occasional H (None) /hpf 01/31/21 01/31/21 01/31/21 Range/Units 19:51 19:51 19:51 RBC (4.30-5.90) m/uL Hgb (13.0-17.5) gm/dL Hct (39.0-53.0) % MCV (80.0-100.0) fL Plt Count (150-450) k/uL Lymphocytes # (1.0-4.8) k/uL PT (9.0-12.0) sec INR (<1.2) BUN 44 H (9-20) mg/dL Glucose 193 H (74-99) mg/dL POC Glucose (mg/dL) (75-99) mg/dL Plasma Lactic Acid Vince 2.2 H* (0.7-2.0) mmol/L Total Bilirubin 2.6 H (0.2-1.3) mg/dL AST 109 H (17-59) U/L Creatine Kinase 2884 H* (55-170) U/L Troponin I 0.062 H* (0.000-0.034) ng/mL HDL Cholesterol (40-60) mg/dL Urine Protein (Negative) Urine Glucose (UA) (Negative) Urine Ketones (Negative) Urine Blood (Negative) Ur Leukocyte Esterase (Negative) Urine WBC (0-5) /hpf Urine Bacteria (None) /hpf Hyaline Casts (0-2) /lpf Urine Mucus (None) /hpf Urine Yeast (Budding) (None) /hpf 01/31/21 01/31/21 02/01/21 Range/Units 20:48 23:35 02:56 RBC (4.30-5.90) m/uL Hgb (13.0-17.5) gm/dL Hct (39.0-53.0) % MCV (80.0-100.0) fL Plt Count (150-450) k/uL Lymphocytes # (1.0-4.8) k/uL PT (9.0-12.0) sec INR (<1.2) BUN (9-20) mg/dL Glucose (74-99) mg/dL POC Glucose (mg/dL) 186 H (75-99) mg/dL Plasma Lactic Acid Vince (0.7-2.0) mmol/L Total Bilirubin (0.2-1.3) mg/dL AST (17-59) U/L Creatine Kinase (55-170) U/L Troponin I 0.063 H* 0.056 H* (0.000-0.034) ng/mL HDL Cholesterol (40-60) mg/dL Urine Protein (Negative) Urine Glucose (UA) (Negative) Urine Ketones (Negative) Urine Blood (Negative) Ur Leukocyte Esterase (Negative) Urine WBC (0-5) /hpf Urine Bacteria (None) /hpf Hyaline Casts (0-2) /lpf Urine Mucus (None) /hpf Urine Yeast (Budding) (None) /hpf 02/01/21 02/01/21 02/01/21 Range/Units 02:56 02:56 02:56 RBC 3.67 L (4.30-5.90) m/uL Hgb 12.0 L D (13.0-17.5) gm/dL Hct 37.1 L (39.0-53.0) % MCV 101.3 H (80.0-100.0) fL Plt Count 86 L (150-450) k/uL Lymphocytes # 0.2 L (1.0-4.8) k/uL PT (9.0-12.0) sec INR (<1.2) BUN 42 H (9-20) mg/dL Glucose 167 H (74-99) mg/dL POC Glucose (mg/dL) (75-99) mg/dL Plasma Lactic Acid Vince (0.7-2.0) mmol/L Total Bilirubin (0.2-1.3) mg/dL AST (17-59) U/L Creatine Kinase (55-170) U/L Troponin I (0.000-0.034) ng/mL HDL Cholesterol 38 L (40-60) mg/dL Urine Protein (Negative) Urine Glucose (UA) (Negative) Urine Ketones (Negative) Urine Blood (Negative) Ur Leukocyte Esterase (Negative) Urine WBC (0-5) /hpf Urine Bacteria (None) /hpf Hyaline Casts (0-2) /lpf Urine Mucus (None) /hpf Urine Yeast (Budding) (None) /hpf Assessment and Plan Plan: -Episode of unresponsiveness: Patient appear to have had a syncope patient will be monitored on telemetry patient had an echocardiogram which showed moderate to severe pulmonary hypertension, had a decreased EF of around 40-45%. Cardiology evaluated the patient. Patient is also being evaluated for seizures in the CVA/TIA. All the workup for her severe TIAs so far negative EEG did not show any seizure focus -Shortness of breath, acute hypoxic respiratory failure: Possibly secondary to congestive heart failure chronic systolic dysfunction with acute exacerbation patient does have pulmonary hypertension as well. Patient will be started on IV Lasix IV fluids will be discontinued CT chest did not show any evidence of pneumonia at this time and medics were discontinued. Pulmonology will be consulted patient may need drainage of the right-sided pleural effusion as patient is hypoxic -Right-sided pleural effusion: Secondary to his heart failure chronic systolic dysfunction with acute exacerbation as well as pulmonary hypertension and right- sided heart failure. -Moderate to severe pulmonary hypertension -Hypertension -Hyperlipidemia -Mild elevation of troponins probably secondary to CHF exacerbation -Lactic acidosis secondary to decreased organ perfusion which resolved at this time. -Type 2 diabetes mellitus hold off on metformin recent medications will be resumed and patient with sliding scale insulin -Asymptomatic bacteriuria will not require any antibiotics at this time. -DVT prophylaxis: Patient is already on Eliquis I believe for probably paroxysmal atrial fibrillation.
[2021-02-01 16:58] LABS: Glucose,Whole Blood 266 mg/dL (75-99)
[2021-02-01] MEDS: FUROSEMIDE 10 MG/ML 4 ML VIAL IV SCH ×2 (19:00→20:26)
[2021-02-01] MEDS: INSULIN ASPART (NovoLOG) 100 UNIT/ML VIAL SQ SCH ×2 (19:00→20:40)
[2021-02-01] MEDS ORDERED: VANCOMYCIN IV PER PHARMACY 1 EACH MISC MISCELLANE PRN (19:40)
[2021-02-01] MEDS ORDERED: VANCOMYCIN 1,250 MG in SODIUM CHLORIDE 0.9% 250 ML IVPB ONE (20:15)
[2021-02-01] MEDS: ATORVASTATIN 40 MG TAB PO SCH (20:24)
[2021-02-01 20:38] LABS: Glucose,Whole Blood 139 mg/dL (75-99)
[2021-02-01] MEDS ORDERED: AZITHROMYCIN 500 MG TAB PO SCH (21:00)
[2021-02-02 06:13] LABS: Glucose,Whole Blood 135 mg/dL (75-99)
[2021-02-02] MEDS: INSULIN ASPART (NovoLOG) 100 UNIT/ML VIAL SQ SCH ×4 (06:16→20:22)
[2021-02-02] MEDS ORDERED: VANCOMYCIN 1,250 MG in SODIUM CHLORIDE 0.9% 250 ML IVPB SCH (08:00)
[2021-02-02] MEDS: APIXABAN 2.5 MG TABLET PO SCH (08:47)
[2021-02-02] MEDS: FUROSEMIDE 10 MG/ML 4 ML VIAL IV SCH ×2 (08:47→20:16)
[2021-02-02] MEDS: FENOFIBRATE 160 MG TAB PO SCH (08:47)
[2021-02-02] MEDS: METOPROLOL TARTRATE 50 MG TAB PO SCH ×2 (08:47→20:16)
[2021-02-02 09:42] LABS: Basophils % (A) 0 %; Eosinophils % (A) 0 %; HCT 40.9 % (39.0-53.0); HGB 13.5 gm/dL (13.0-17.5); Lymphocytes # (A) 0.6 k/uL (1.0-4.8); Lymphocytes % (A) 9 %; MCH 32.9 pg (25.0-35.0); MCHC 32.9 g/dL (31.0-37.0); MCV 100.1 fL (80.0-100.0); Macrocytosis Slight; Mean Platelet Volume 8.6; Monocytes # (A) 0.5 k/uL (0-1.0); Monocytes % (A) 8 %; Neutrophils % (A) 81 %; Platelet Count 110 k/uL (150-450); RBC 4.09 m/uL (4.30-5.90); WBC 6.2 k/uL (3.8-10.6)
--- NOTE | 2021-02-02 09:45 | P.PN ---
Subjective Progress Note Date: 02/02/21 The patient was seen at bedside and he is feeling better today compared to his initial presentation. Repeat CT of the head on 02/01/2021 was done to see if there is any subacute ischemia that wasn't seen on the initial CT since we cannot get MRI of the brain. It is reported as atrophy with chronic appearing periventricular white matter ischemic changes. Upon reviewing it I don't see any acute or subacute ischemia that is obvious. Affect the patient had excellent vacuo over the posterior horn on over the left which is chronic. Objective - Vital Signs Vital signs: Vital Signs Temp 98.8 F 02/02/21 04:00 Pulse 60 02/02/21 04:00 Resp 20 02/02/21 04:00 BP 148/86 02/02/21 04:00 Pulse Ox 94 L 02/02/21 04:00 Intake & Output 02/01/21 02/02/21 02/02/21 18:59 06:59 18:59 Intake Total 400 Output Total 950 Balance -550 Weight 64.5 kg Intake: Intake, IV Titration 400 Amount Sodium Chloride 0.9% 1, 150 000 ml @ 75 mls/hr IV . [id number] ANA Rx#:[id number] Vancomycin 1,250 mg In 250 Sodium Chloride 0.9% 250 ml @ 125 mls/hr IVPB Q16H ANA Rx#:[id number] Output: Urine 950 Other: Voiding Method Urinal Urinal Diaper Diaper Incontinent Incontinent # Voids 2 3 - Exam GENERAL: The patient is lying in bed and is not in acute distress. NEUROLOGICAL: Higher mental function: The patient is awake, alert, oriented to self. He correctly chose he was in the hospital with option. He correctly state the month was January but the year was 2012. Patient is following simple commands. No aphasia and no neglect. Cranial nerves: The pupils are round, equal and reactive to light and accommodation. Visual mak are full to confrontation throughout. Extraocular movement is intact no nystagmus is noted. Facial sensation is normal to touch throughout. No facial weakness noted. Hearing is moderately decrease bilaterally to hand rub. Tongue is midline and moved [id number] without any difficulty. There is no tongue bite. Mild dysarthria is noted (chronic). Shoulder shrug is normal bilaterally. Motor: Gait is deferred. The strength is 5- over 5 throughout. Normal tone and bulk. Cerebellum: Normal finger to nose bilaterally. Sensation: Sensation is normal to touch throughout. Reflexes (right/left): 1+ throughout. Plantars are downgoing bilaterally. - Labs CBC & Chem 7: 02/02/21 08:06 02/02/21 08:06 Labs: Abnormal Lab Results - Last 24 Hours (Table) 02/01/21 02/01/21 02/01/21 Range/Units 02:56 16:57 20:33 POC Glucose (mg/dL) 266 H 139 H (75-99) mg/dL HDL Cholesterol 38 L (40-60) mg/dL 02/02/21 Range/Units 06:12 POC Glucose (mg/dL) 135 H (75-99) mg/dL HDL Cholesterol (40-60) mg/dL Microbiology - Last 24 Hours (Table) 01/31/21 21:30 Blood Culture Gram Stain - Preliminary Blood Blood Culture - Preliminary Coagulase Negative Staph 01/31/21 21:55 Blood Culture - Preliminary Blood No Growth after 24 hours 01/31/21 21:30 Blood Culture - Final Blood Assessment and Plan Assessment: This is an 80 old gentleman with significant heart failure status post pacemaker that presented to the emergency department 01/31/2021 after being found down on the kitchen floor. Currently he has mild right facial droop. According the patient [id number] he had the fall about 4 years ago and he had extensive workup and was told due to his heart failure * Transient Right lower facial droop likely due to Transient ischemic attack (especially with atrial fibrillation and other risk factors (hear failure, DM, Hypertension, age). * Episode of unresponsiveness: Unknow etiology. 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 Possibly cause of stroke. Unlikely seizure but cannot exclude. * Previous history of stroke without any neurological deficit (about 4 years ago were told by his cardiology he had a stroke possibly thru imaging) * Thrombocytopenia * Elevated troponin * Heart failure status post pacemaker * Hypertension * Chronic history of diabetes * Hard of hearing Plan: CT of the head is reported as cerebral atrophy. No acute intracranial abnormality. CT of the cervical spine is reported as minor degenerative changes in the cervical spine (in body of report it mentioned of C4-C5). No fracture seen. No evidence of soft tissue mass involving the visualized facial bones including the orbits and upper maxilla. Repeat CT of the head on 02/01/2021 was done to see if there is any subacute ischemia that wasn't seen on the initial CT since we cannot get MRI of the brain. It is reported as atrophy with chronic appearing periventricular white matter ischemic changes. Upon reviewing it I don't see any acute or subacute ischemia that is obvious. Affect the patient had excellent vacuo over the posterior horn on over the left which is chronic. Carotid duplex is reported as no hemodynamic significant stenosis seen in either internal carotid arteries. 2-D echo was reported as moderate concentric left ventricular hypertrophy. Overall left ventricular systolic function is mild mildly impaired with ejection fraction of 40-45%. Left atrium is severely dilated. There is severe pulmonary hypertension. Lipid panel: Triglyceride 99, cholesterol of 87, LDL 29 and HDL is 38. Patient is within the goal for stroke less than 70. Patient is on Eliquis 2.5 mg 1 tablet twice a day. I recommend adding Plavix 75 mg in addition (platelets are mildly low and will defer adding it if safe from primary perspective) . Continue Lipitor 40 mg daily at bedtime for secondary stroke prophylaxis A routine EEG on 02/01/2021 is normal. There are no focal slowing, epileptiform discharges or seizure on the EEG. Vitamin B12 is 459 which is normal and it was done since the patient on the repeat MCV was slightly elevated and it was 101.3 but on the initial was now (100) it was considered within the normal limits. Every 4 neuro checks. Continue cardiac monitoring Cardiology is on board. Patient stated the status post ICD biventricular for cardiomyopathy a device interrogation did not reveal any significant arrhythmia We'll defer the rest of the medical management to the primary team. Upon discharge the patient needs to follow-up with a neurologist within 1-2 weeks. There is no further work-up needed at this time. The plan was discussed with the patient primary team, cardiology team and his nurse. Jameson Hernandez M.D. Neuro-hospitalist Time with Patient: Less than 30
[2021-02-02 09:55] LABS: African American GFR (CKD) >90 (>60 ml/min/1.73 sqM); Anion Gap 2 mmol/L; Blood Urea Nitrogen 43 mg/dL (9-20); Calcium 8.3 mg/dL (8.4-10.2); Carbon Dioxide 30 mmol/L (22-30); Chloride 107 mmol/L (98-107); Glucose 114 mg/dL (74-99); Magnesium 1.9 mg/dL (1.6-2.3); Non-African American GFR(CKD) 78 (>60 ml/min/1.73 sqM); Potassium 3.9 mmol/L (3.5-5.1); Sodium 139 mmol/L (137-145)
--- NOTE | 2021-02-02 11:07 | P.CNPUL ---
History of Present Illness Consult date: 02/02/21 Reason for consult: dyspnea, COPD, hypoxemia, pleural effusion, abnormal CXR/CT Chief complaint: Shortness of breath History of present illness: This is a 80-year-old male seen eval examined patient the came into the hospital after recurrent and repeated fall due to acute rhabdomyolysis, patient does have a history of the stroke in the past have been on direct oral anticoagulant, chest x-ray and CAT scan show large right-sided pleural effusion I was asked to evaluate further shortness of breath appears to be related to large pleural effusion and lung compression atelectasis, Review of the data revealed that 80-year-old male who presents to the emergency department after he was found down on his kitchen floor. [id number] is at bedside and helps provide history. States that they last spoke to him at 7 PM yesterday and the patient was his normal self. He lives alone, ambulates unassisted and drives. States that he was found by his son confused at 6 PM this evening. He did have some facial swelling unknown if it was secondary to prolonged down time. Some facial asymmetry noted. No unilateral weakness. 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 Patient is on anticoagulation. He is able to answer questions appropriately on upon arrival. Noted to have some increased respirations. He denies headaches or visual changes. No neck pain. Denies back or flank pain. No chest pain. Denies any pain in his arms or legs. Patient reports that he was in the kitchen attempting to take his medications and this is the last thing he remembers, patient used to smoke heavily in the past but could not recall extent and duration of smoking Review of Systems ROS unobtainable: due to mental status All systems: negative Past Medical History Past Medical History: Heart Failure, Hypertension History of Any Multi-Drug Resistant Organisms: None Reported Past Surgical History: Orthopedic Surgery, Pacemaker Additional Past Surgical History / Comment(s): colonoscopy. repair lt toe Past Anesthesia/Blood Transfusion Reactions: No Reported Reaction Date of Last Stent Placement:: 2005 Type of Cardiac Device: Biventricular Pacemaker, Permanent Pacemaker Device Placement Date:: 02-01-2019 Past Psychological History: No Psychological Hx Reported Smoking Status: Former smoker Past Alcohol Use History: None Reported Past Drug Use History: None Reported - Past Family History Mother Family Medical History: No Reported History Additional Family Medical History / Comment(s): pt is the oldest of 5 and all have pasted in their 60's due to heart problems. Pt does not know much about his family Brother(s) Family Medical History: Memory Impairment Additional Family Medical History / Comment(s): youngest brother passed at 66 in 2020 from a [place] Medications and Allergies Home Medications Medication Instructions Recorded Confirmed Type Fenofibrate Nanocrystallized 145 mg PO DAILY 02/16/15 01/31/21 History [Fenofibrate] Isosorbide Mononitrate ER [Imdur] 60 mg PO DAILY 02/16/15 01/31/21 History Metoprolol Tartrate [Lopressor] 100 mg PO BID 02/16/15 01/31/21 History hydrALAZINE HCL [Apresoline] 100 mg PO BID 02/16/15 01/31/21 History hydroCHLOROthiazide [Hydrodiuril] 25 mg PO DAILY 02/16/15 01/31/21 History metFORMIN HCL [Glucophage] 500 mg PO DAILY 02/16/15 01/31/21 History Apixaban [Eliquis] 2.5 mg PO BID 12/03/18 01/31/21 History lisinopriL 20 mg PO BID 12/03/18 01/31/21 History Furosemide [Lasix] 20 mg PO BID PRN 01/18/19 01/31/21 History Glimepiride [Amaryl] 1 mg PO BID 02/01/19 01/31/21 History Ergocalciferol [Vitamin D2 (1250 1,250 mcg PO Q7D 01/31/21 01/31/21 History Mcg = 48471 Iu)] Ketoconazole 2% Cream [Nizoral 2%] 1 applic TOPICAL DAILY PRN 01/31/21 01/31/21 History Allergies Allergy/AdvReac Type Severity Reaction Status Date / Time Penicillins AdvReac Unknown Verified 01/31/21 21:01 Physical Exam Vitals: Vital Signs Temp Pulse Pulse Resp BP BP Pulse Ox 02/02/21 08:00 98.2 F 60 20 149/72 90 L 02/02/21 04:00 98.8 F 60 20 148/86 94 L 02/02/21 02:00 64 20 02/02/21 00:00 64 20 136/78 94 L 02/01/21 20:00 98.1 F 60 18 163/78 93 L 02/01/21 16:00 60 18 153/75 96 02/01/21 14:00 18 02/01/21 12:45 98.5 F 60 16 150/90 95 Intake and Output 02/01/21 02/02/21 02/02/21 22:59 06:59 14:59 Intake Total 400 Output Total 950 Balance -550 Intake: Intake, IV Titration 400 Amount Sodium Chloride 0.9% 1, 150 000 ml @ 75 mls/hr IV . [id number] [facility] Rx#:[id number] Vancomycin 1,250 mg In 250 Sodium Chloride 0.9% 250 ml @ 125 mls/hr IVPB Q16H [facility] Rx#:[id number] Output: Urine 950 Other: Voiding Method Urinal Urinal Diaper Diaper Incontinent Incontinent # Voids 1 3 Weight 64.5 kg - Constitutional General appearance: average body habitus, cooperative, disheveled, mild distress - EENT Eyes: EOMI, PERRLA, poor dentition ENT: normal oropharynx Ears: bilateral: normal - Neck Carotids: bilateral: upstroke normal - Respiratory Respiratory: right: diminished, dullness - Cardiovascular Rhythm: regular Heart sounds: normal: S1, S2 - Gastrointestinal General gastrointestinal: distended, normal bowel sounds - Integumentary Integumentary: normal turgor - Neurologic Neurologic: CNII-XII intact - Musculoskeletal Musculoskeletal: generalized weakness - Psychiatric Psychiatric: A&O x's 3, appropriate affect, intact judgment & insight Results - Laboratory Findings CBC and BMP: 02/02/21 08:06 02/02/21 08:06 PT/INR, D-dimer PT 12.3 sec (9.0-12.0) H 01/31/21 19:51 INR 1.2 (<1.2) H 01/31/21 19:51 Abnormal lab findings: Abnormal Labs 01/31/21 01/31/21 01/31/21 19:51 19:51 19:51 RBC Hgb Hct MCV Plt Count 112 L Lymphocytes # 0.3 L PT 12.3 H INR 1.2 H BUN Glucose POC Glucose (mg/dL) Plasma Lactic Acid Vince Calcium Total Bilirubin AST Creatine Kinase Troponin I HDL Cholesterol Urine Protein 1+ H Urine Glucose (UA) 1+ H Urine Ketones 1+ H Urine Blood Moderate H Ur Leukocyte Esterase Small H Urine WBC 8 H Urine Bacteria Occasional H Hyaline Casts 4 H Urine Mucus Few H Urine Yeast (Budding) Occasional H 01/31/21 01/31/21 01/31/21 19:51 19:51 19:51 RBC Hgb Hct MCV Plt Count Lymphocytes # PT INR BUN 44 H Glucose 193 H POC Glucose (mg/dL) Plasma Lactic Acid Vince 2.2 H* Calcium Total Bilirubin 2.6 H AST 109 H Creatine Kinase 2884 H* Troponin I 0.062 H* HDL Cholesterol Urine Protein Urine Glucose (UA) Urine Ketones Urine Blood Ur Leukocyte Esterase Urine WBC Urine Bacteria Hyaline Casts Urine Mucus Urine Yeast (Budding) 01/31/21 01/31/21 02/01/21 20:48 23:35 02:56 RBC Hgb Hct MCV Plt Count Lymphocytes # PT INR BUN Glucose POC Glucose (mg/dL) 186 H Plasma Lactic Acid Vince Calcium Total Bilirubin AST Creatine Kinase Troponin I 0.063 H* 0.056 H* HDL Cholesterol Urine Protein Urine Glucose (UA) Urine Ketones Urine Blood Ur Leukocyte Esterase Urine WBC Urine Bacteria Hyaline Casts Urine Mucus Urine Yeast (Budding) 02/01/21 02/01/21 02/01/21 02:56 02:56 02:56 RBC 3.67 L Hgb 12.0 L D Hct 37.1 L MCV 101.3 H Plt Count 86 L Lymphocytes # 0.2 L PT INR BUN 42 H Glucose 167 H POC Glucose (mg/dL) Plasma Lactic Acid Vince Calcium Total Bilirubin AST Creatine Kinase Troponin I HDL Cholesterol 38 L Urine Protein Urine Glucose (UA) Urine Ketones Urine Blood Ur Leukocyte Esterase Urine WBC Urine Bacteria Hyaline Casts Urine Mucus Urine Yeast (Budding) 02/01/21 02/01/21 02/02/21 16:57 20:33 06:12 RBC Hgb Hct MCV Plt Count Lymphocytes # PT INR BUN Glucose POC Glucose (mg/dL) 266 H 139 H 135 H Plasma Lactic Acid Vince Calcium Total Bilirubin AST Creatine Kinase Troponin I HDL Cholesterol Urine Protein Urine Glucose (UA) Urine Ketones Urine Blood Ur Leukocyte Esterase Urine WBC Urine Bacteria Hyaline Casts Urine Mucus Urine Yeast (Budding) 02/02/21 02/02/21 08:06 08:06 RBC 4.09 L Hgb Hct MCV 100.1 H Plt Count 110 L Lymphocytes # 0.6 L PT INR BUN 43 H Glucose 114 H POC Glucose (mg/dL) Plasma Lactic Acid Vince Calcium 8.3 L Total Bilirubin AST Creatine Kinase Troponin I HDL Cholesterol Urine Protein Urine Glucose (UA) Urine Ketones Urine Blood Ur Leukocyte Esterase Urine WBC Urine Bacteria Hyaline Casts Urine Mucus Urine Yeast (Budding) - Diagnostic Findings Chest x-ray: report reviewed, image reviewed CT scan - chest: report reviewed, image reviewed (Finding as noted above) Assessment and Plan Assessment: Syncopal episode Acute rhabdomyolysis Acute hypoxic respiratory failure saturation of 90% on 3 L Moderate to large right-sided pleural effusion differential diagnoses likely heart failure less likely related to neoplasm, pneumonia or atelectasis fluid overload History of stroke on direct oral anticoagulants Acute on chronic systolic heart failure related to Cardiomyopathy ejection fraction of 40-45% Plan: Continue gentle diuresis Maximal medical therapy Fall precautions Would recommend to hold direct anticoagulant Lovenox 40 mg subcu every 12 Last dose off Lovenox on Thursday night Ultrasound of chest bilateral Thursday morning Right-sided thoracentesis Thursday if pleural effusion did not resolve by that time Continue supportive care, further recommendations pending plan of care as per clinical response of the patient Time with Patient: Greater than 30
[2021-02-02 11:51] LABS: Glucose,Whole Blood 155 mg/dL (75-99)
--- NOTE | 2021-02-02 14:56 | P.PN ---
Subjective Progress Note Date: 02/02/21 HISTORY OF PRESENT ILLNESS: Patient examined this morning at the bedside. Patient is more awake today compared to yesterday. He denies chest pain or pressure. Denies shortness of b reath. Repeat head CT yesterday performed revealing atrophy with chronic appearing periventricular white matter ischemic changes. No arrhythmias noted on telemetry. Blood pressure 139/66. Heart rate in the 60s. He is afebrile. He is on 4 L nasal cannula with oxygen saturations greater then 92%. Echocardiogram obtained revealed ejection fraction 40-45%, mild aortic regurgitation, mild mitral regurgitation, mild tricuspid regurgitation, and severe pulmonary hypertension PHYSICAL EXAM: VITAL SIGNS: Reviewed. GENERAL: Well-developed in no acute distress. NECK: Supple. No JVD or thyromegaly LUNGS: Respirations even and unlabored. Lungs diminished bilaterally. HEART: Regular rate and rhythm. S1 and S2 heard. EXTREMITIES: Normal range of motion. No clubbing or cyanosis. Peripheral pulses intact. No lower extremity edema ASSESSMENT: Right sided facial droop, possible TIA Episode of unresponsiveness, etiology unclear, ICD interrogation without evidence of arrhythmias Previous history of CVA History of nonischemic cardiomyopathy, status post biventricular ICD Chronic persistent atrial fibrillation Hypertension Hyperlipidemia Diabetes mellitus Large right-sided pleural effusion PLAN: Neurology following Pulmonary following. Eliquis placed on hold. Patient to have ultrasound of the chest on Thursday and possible right sided thoracentesis per pulmonary on Thursday Continue telemetry monitoring Will contact device rep (Xtium) on Thursday to have device interrogated again Further recommendations pending patient's course Nurse practitioner note has been reviewed by physician. Signing provider agrees with the documented findings, assessment, and plan of care. Objective - Vital Signs Vital signs: Vital Signs Temp 98.2 F 02/02/21 12:00 Pulse 60 02/02/21 12:00 Resp 22 02/02/21 12:00 BP 139/66 02/02/21 12:00 Pulse Ox 96 02/02/21 12:00 Intake & Output 02/01/21 02/02/21 02/02/21 18:59 06:59 18:59 Intake Total 400 Output Total 950 Balance -550 Weight 64.5 kg Intake: Intake, IV Titration 400 Amount Sodium Chloride 0.9% 1, 150 000 ml @ 75 mls/hr IV . [id number] [facility] Rx#:[id number] Vancomycin 1,250 mg In 250 Sodium Chloride 0.9% 250 ml @ 125 mls/hr IVPB Q16H [facility] Rx#:[id number] Output: Urine 950 Other: Voiding Method Urinal Urinal Diaper Diaper Incontinent Incontinent # Voids 2 3 - Labs CBC & Chem 7: 02/02/21 08:06 02/02/21 08:06 Labs: Abnormal Lab Results - Last 24 Hours (Table) 02/01/21 02/01/21 02/02/21 Range/Units 16:57 20:33 06:12 RBC (4.30-5.90) m/uL MCV (80.0-100.0) fL Plt Count (150-450) k/uL Lymphocytes # (1.0-4.8) k/uL BUN (9-20) mg/dL Glucose (74-99) mg/dL POC Glucose (mg/dL) 266 H 139 H 135 H (75-99) mg/dL Calcium (8.4-10.2) mg/dL 02/02/21 02/02/21 02/02/21 Range/Units 08:06 08:06 11:50 RBC 4.09 L (4.30-5.90) m/uL MCV 100.1 H (80.0-100.0) fL Plt Count 110 L (150-450) k/uL Lymphocytes # 0.6 L (1.0-4.8) k/uL BUN 43 H (9-20) mg/dL Glucose 114 H (74-99) mg/dL POC Glucose (mg/dL) 155 H (75-99) mg/dL Calcium 8.3 L (8.4-10.2) mg/dL Microbiology - Last 24 Hours (Table) 01/31/21 21:30 Blood Culture Gram Stain - Preliminary Blood Blood Culture - Preliminary Coagulase Negative Staph 01/31/21 21:55 Blood Culture - Preliminary Blood No Growth after 24 hours 01/31/21 21:30 Blood Culture - Final Blood
[2021-02-02 16:57] LABS: Glucose,Whole Blood 117 mg/dL (75-99)
--- NOTE | 2021-02-02 17:28 | P.PN ---
Subjective Patient is a pleasant 80-year-old that male who lives by himself at an apartment with some assistance was found unresponsive. Patient's family found him down on the kitchen floor after no contact for a day with the son or [id number]. Patient is able to provide me history patient is alert oriented times around 2- 3. Neurology evaluated the patient they believe patient had a facial droop towards the left side he does have mild drooping although no other weakness or deficits because of which patient underwent extensive stroke workup CT of the head showing cerebral atrophy CT of the spine showing degenerative disc disease chest x-ray showing significant pulmonary venous markings. Patient is also hypoxic and is requiring 5 L of oxygen chest x-ray is not really conclusive and I cannot completely rule out pneumonia because of that reason obtain a CT of the chest which did not show any pneumonia did show pleural effusion moderate, leroy cochrannt also had a CT angios the head and neck carotid Doppler EEG all of which are essentially within normal limits. Patient has elevated MCV I'm opting B12 levels. Patient is able to provide me history although he is not sure how he lost consciousness. Patient is also being evaluated for seizures. 02/02/2021 neck stent patient looks better today patient is pretty status did improve patient doesn't have any facial droop. Patient doesn't appear to have had a TIA or a stroke. Patient had a AICD interrogation which did not show any significant rhythm abnormality that could explain his a possible syncopal episode. Patient was evaluated by pulmonology patient is on diuretics which will be continued if right-sided pleural effusion doesn't resolve patient will undergo thoracentesis. Oral anticoagulants are being held for that reason. All the workup for TIA and stroke were negative Constitutional: Denied any fatigue denied any fever. Cardio vascular: denied any chest pain, palpitations Gastrointestinal denied any nausea vomiting Pulmonary: Denied any shortness of breath cough Neurologic denied any new focal deficits All inpatient medications were reviewed and appropriate changes in these medications as dictated in the interval history and assessment and plan. Objective - Vital Signs Vital signs: Vital Signs Temp 98.2 F 02/02/21 12:00 Pulse 60 02/02/21 12:00 Resp 22 02/02/21 12:00 BP 139/66 02/02/21 12:00 Pulse Ox 96 02/02/21 12:00 Intake & Output 03/02/02/21 02/02/21 18:59 06:59 18:59 Intake Total 400 380 Output Total 950 Balance -550 380 Weight 64.5 kg Intake: Intake, IV Titration 400 Amount Sodium Chloride 0.9% 1, 150 000 ml @ 75 mls/hr IV . [id number] [facility] Rx#:[id number] Vancomycin 1,250 mg In 250 Sodium Chloride 0.9% 250 ml @ 125 mls/hr IVPB Q16H [facility] Rx#:[id number] Oral 380 Output: Urine 950 Other: Voiding Method Urinal Urinal Diaper Diaper Incontinent Incontinent # Voids 2 3 0 # Bowel Movements 0 - Exam PHYSICAL EXAMINATION: GENERAL: The patient is alert and oriented x3, patient is on mild respiratory distress. Well developed, well nourished. HEENT: Pupils are round and equally reacting to light. EOMI. No scleral icterus. No conjunctival pallor. Normocephalic, atraumatic. No pharyngeal erythema. No thyromegaly. CARDIOVASCULAR: S1 and S2 present. No murmurs, rubs, or gallops. Does appear to have elevated JVD loud P2 no pedal edema PULMONARY: Chest is clear to auscultation, no wheezing or crackles. ABDOMEN: Soft, nontender, nondistended, normoactive bowel sounds. No palpable organomegaly. MUSCULOSKELETAL: No joint swelling or deformity. EXTREMITIES: No cyanosis, clubbing, or pedal edema. NEUROLOGICAL: Gross neurological examination did not reveal any focal deficits. SKIN: No rashes. - Labs CBC & Chem 7: 02/02/21 08:06 02/02/21 08:06 Labs: Abnormal Lab Results - Last 24 Hours (Table) 02/01/21 02/02/21 02/02/21 Range/Units 20:33 06:12 08:06 RBC 4.09 L (4.30-5.90) m/uL MCV 100.1 H (80.0-100.0) fL Plt Count 110 L (150-450) k/uL Lymphocytes # 0.6 L (1.0-4.8) k/uL BUN (9-20) mg/dL Glucose (74-99) mg/dL POC Glucose (mg/dL) 139 H 135 H (75-99) mg/dL Calcium (8.4-10.2) mg/dL 02/02/21 02/02/21 02/02/21 Range/Units 08:06 11:50 16:56 RBC (4.30-5.90) m/uL MCV (80.0-100.0) fL Plt Count (150-450) k/uL Lymphocytes # (1.0-4.8) k/uL BUN 43 H (9-20) mg/dL Glucose 114 H (74-99) mg/dL POC Glucose (mg/dL) 155 H 117 H (75-99) mg/dL Calcium 8.3 L (8.4-10.2) mg/dL Microbiology - Last 24 Hours (Table) 01/31/21 21:30 Blood Culture Gram Stain - Preliminary Blood Blood Culture - Preliminary Coagulase Negative Staph 01/31/21 21:55 Blood Culture - Preliminary Blood No Growth after 24 hours 01/31/21 21:30 Blood Culture - Final Blood Assessment and Plan Plan: -Episode of unresponsiveness: Patient appear to have had a syncope patient will be monitored on telemetry patient had an echocardiogram which showed moderate to severe pulmonary hypertension, had a decreased EF of around 40-45%. Cardiology evaluated the patient. Patient is also being evaluated for seizures in the CVA/TIA. All the workup for her severe TIAs so far negative EEG did not show any seizure focus -Shortness of breath, acute hypoxic respiratory failure: Possibly secondary to congestive heart failure chronic systolic dysfunction with acute exacerbation patient does have pulmonary hypertension as well. Patient will be started on IV Lasix IV fluids will be discontinued CT chest did not show any evidence of pn eumonia at this time and medics were discontinued. Pulmonology will be consulted patient may need drainage of the right-sided pleural effusion as patient is hypoxic -Right-sided pleural effusion: Secondary to his heart failure chronic systolic dysfunction with acute exacerbation as well as pulmonary hypertension and right- sided heart failure. Anticoagulation is on hold for possibility of thorac entesis on Thursday if pleural effusion doesn't resolve -Chronic atrial fibrillation -Moderate to severe pulmonary hypertension -Hypertension -Hyperlipidemia -Mild elevation of troponins probably secondary to CHF exacerbation -Lactic acidosis secondary to decreased organ perfusion which resolved at this time. -Type 2 diabetes mellitus hold off on metformin recent medications will be resumed and patient with sliding scale insulin -Asymptomatic bacteriuria will not require any antibiotics at this time. -DVT prophylaxis: Patient is already on Eliquis, which is being held temporarily for now
[2021-02-02] MEDS: ENOXAPARIN 40 MG/0.4 ML SYRINGE SQ SCH (20:16)
[2021-02-02] MEDS: ATORVASTATIN 40 MG TAB PO SCH (20:16)
[2021-02-02 20:19] LABS: Glucose,Whole Blood 196 mg/dL (75-99)
[2021-02-03 06:47] LABS: Glucose,Whole Blood 78 mg/dL (75-99)
[2021-02-03] MEDS: INSULIN ASPART (NovoLOG) 100 UNIT/ML VIAL SQ SCH ×4 (06:51→21:26)
--- NOTE | 2021-02-03 06:52 | CONS ---
CONSULTATION DATE OF SERVICE: 02/02/2021 REASON FOR CONSULTATION: Bacteremia. HISTORY OF PRESENT ILLNESS: The patient is an 80-year-old male who was brought into the hospital on the for evaluation of mental status changes. Apparently the patient was found down on his kitchen floor and the patient lives alone, ambulates unassisted and drives. The patient was noticed to be confused at 6:00 p.m. that evening of presentation to the hospital had soft tissue swelling. Been on the floor. No clear history of any loss of question. No syncopal episode. No clear history of any fever or vomiting. The patient did not remember. The patient denies having any headache at this point. Denies any chest pain or shortness of breath or cough. No nausea or vomiting. No abdominal pain. No diarrhea. On presentation to hospital the patient has been afebrile, low- grade fever of 99.1. He is currently 98% on room air. The patient did have a normal white count. Urine was negative. Urine drug screen was negative. Kilpatrick PCR was negative. The patient had a CT as well as a CT angiogram of the chest which was negative for PE, did show some effusion. The patient did have blood cultures done which came back positive with gram-positive cocci. Vancomycin was added. Infectious Disease was consulted for further management of antibiotic therapy. REVIEW OF SYSTEMS: Positive points have been mentioned in HPI. Rest of systems are negative. PAST MEDICAL HISTORY: Heart failure, hypertension, osteoarthritis. PAST SURGICAL HISTORY: Colonoscopy and repair of left pacemaker placement. SOCIAL HISTORY: Remote history of smoking. No drinking or drug use. FAMILY HISTORY: No pertinent findings noticed. ALLERGIES: PENICILLIN. No history of anaphylaxis. MEDICATIONS: The patient is currently on vancomycin, Lipitor, clotrimazole, Lovenox, vitamin D2, Lofibra, Lasix, NovoLog, Lopressor, Narcan. PHYSICAL EXAMINATION: VITAL SIGNS: Blood pressure 162/84 with a pulse of 62, temperature 98.1, he is 98% on room air. GENERAL DESCRIPTION: Patient is an elderly male lying in bed in no distress. No tachypnea or accessory muscles of respiration use. HEENT: Examination shows no pallor or scleral icterus. Oral mucous membrane is dry. NECK: Trachea central, no thyromegaly. LUNGS: Unlabored breathing, clear to auscultation anteriorly. HEART: S1-S2, regular rate and rhythm. ABDOMEN: Soft, no tenderness. No guarding or rigidity. EXTREMITIES: No edema of the feet. SKIN: No rash or mass palpable. NEUROLOGICAL: Patient is awake, alert, oriented times two. Mood and affect normal. LABS: Hemoglobin 13.8, white count 6.2, BUN of 43, creatinine 0.92. Electrolytes have been normal. Urine is negative. Kilpatrick PCR was negative. Blood culture finalized with coagulase negative staph. Chest x-ray with effusion. CT angiogram did not show any pneumonia, had some isolated effusion. DIAGNOSTIC IMPRESSION: Patient with a positive blood culture with coagulase negative Staph. Likely skin contaminant, as the patient has no clinical disease to go along with it. The patient with no fever or elevated white count. PLAN: 1. Vancomycin to be discontinued. 2. Will repeat blood cultures to document clearance of bacteremia. 3. We will monitor the patient closely off antibiotic therapy. If the patient spikes any fever or any change in clinical condition, appropriate cultures before starting patient on antibiotics. Thank you for this consultation. Will follow this patient along with you. MMODL / IJN: [id number] /
[2021-02-03 08:14] LABS: Calcium 8.7 mg/dL (8.4-10.2); Magnesium 1.7 mg/dL (1.6-2.3); Potassium 3.9 mmol/L (3.5-5.1)
[2021-02-03] MEDS ORDERED: MAGNESIUM SULFATE-D5W PMX 1 GM in DEXTROSE/WATER 1 100ML.BAG IVPB ONE (08:54)
--- NOTE | 2021-02-03 08:55 | P.PN ---
Subjective Patient is a pleasant 80-year-old that male who lives by himself at an apartment with some assistance was found unresponsive. Patient's family found him down on the kitchen floor after no contact for a day with the son or [id number]. Patient is able to provide me history patient is alert oriented times around 2- 3. Neurology evaluated the patient they believe patient had a facial droop towards the left side he does have mild drooping although no other weakness or deficits because of which patient underwent extensive stroke workup CT of the head showing cerebral atrophy CT of the spine showing degenerative disc disease chest x-ray showing significant pulmonary venous markings. Patient is also hypoxic and is requiring 5 L of oxygen chest x-ray is not really conclusive and I cannot completely rule out pneumonia because of that reason obtain a CT of the chest which did not show any pneumonia did show pleural effusion mac, leroy cochrannt also had a CT angios the head and neck carotid Doppler EEG all of which are essentially within normal limits. Patient has elevated MCV I'm opting B12 levels. Patient is able to provide me history although he is not sure how he lost consciousness. Patient is also being evaluated for seizures. 02/02/2021 neck stent patient looks better today patient is pretty status did improve patient doesn't have any facial droop. Patient doesn't appear to have had a TIA or a stroke. Patient had a AICD interrogation which did not show any significant rhythm abnormality that could explain his a possible syncopal episode. Patient was evaluated by pulmonology patient is on diuretics which will be continued if right-sided pleural effusion doesn't resolve patient will undergo thoracentesis. Oral anticoagulants are being held for that reason. All the workup for TIA and stroke were negative 02/03/2021 Patient has a significant improvement in his respiratory status patient will be started on low-dose of for lisinopril. Patient will be continued on Lasix. Patient respiratory status improved and presently only requiring a 2-3 L. Patient will undergo thoracentesis tomorrow. Constitutional: Denied any fatigue denied any fever. Cardio vascular: denied any chest pain, palpitations Gastrointestinal denied any nausea vomiting Pulmonary: Denied any shortness of breath cough Neurologic denied any new focal deficits All inpatient medications were reviewed and appropriate changes in these med ications as dictated in the interval history and assessment and plan. Objective - Vital Signs Vital signs: Vital Signs Temp 98.4 F 02/03/21 04:00 Pulse 60 02/03/21 04:00 Resp 20 02/03/21 04:00 BP 144/88 02/03/21 04:00 Pulse Ox 97 02/03/21 04:00 Intake & Output 02/02/21 02/03/21 02/03/21 18:59 06:59 18:59 Intake Total 910 Output Total 800 450 Balance 110 -450 Weight 64 kg Intake: Intake, IV Titration 250 Amount Vancomycin 1,250 mg In 250 Sodium Chloride 0.9% 250 ml @ 125 mls/hr IVPB Q16H [facility] [place] Rx#:[id number] Oral 660 Output: Urine 800 450 Other: Voiding Method Urinal Diaper Incontinent # Voids 0 # Bowel Movements 0 - Exam PHYSICAL EXAMINATION: GENERAL: The patient is alert and oriented x3, patient is on mild respiratory distress. Well developed, well nourished. HEENT: Pupils are round and equally reacting to light. EOMI. No scleral icterus. No conjunctival pallor. Normocephalic, atraumatic. No pharyngeal erythema. No thyromegaly. CARDIOVASCULAR: S1 and S2 present. No murmurs, rubs, or gallops. Does appear to have elevated JVD loud P2 no pedal edema PULMONARY: Chest is clear to auscultation, no wheezing or crackles. ABDOMEN: Soft, nontender, nondistended, normoactive bowel sounds. No palpable organomegaly. MUSCULOSKELETAL: No joint swelling or deformity. EXTREMITIES: No cyanosis, clubbing, or pedal edema. NEUROLOGICAL: Gross neurological examination did not reveal any focal deficits. SKIN: No rashes. - Labs CBC & Chem 7: 02/02/21 08:06 02/03/21 07:07 Labs: Abnormal Lab Results - Last 24 Hours (Table) 02/02/21 02/02/21 02/02/21 Range/Units 08:06 08:06 11:50 RBC 4.09 L (4.30-5.90) m/uL MCV 100.1 H (80.0-100.0) fL Plt Count 110 L (150-450) k/uL Lymphocytes # 0.6 L (1.0-4.8) k/uL Carbon Dioxide (22-30) mmol/L BUN 43 H (9-20) mg/dL Glucose 114 H (74-99) mg/dL POC Glucose (mg/dL) 155 H (75-99) mg/dL Calcium 8.3 L (8.4-10.2) mg/dL 02/02/21 02/02/21 02/03/21 Range/Units 16:56 20:18 07:07 RBC (4.30-5.90) m/uL MCV (80.0-100.0) fL Plt Count (150-450) k/uL Lymphocytes # (1.0-4.8) k/uL Carbon Dioxide 35 H (22-30) mmol/L BUN 38 H (9-20) mg/dL Glucose (74-99) mg/dL POC Glucose (mg/dL) 117 H 196 H (75-99) mg/dL Calcium (8.4-10.2) mg/dL Microbiology - Last 24 Hours (Table) 01/31/21 21:30 Blood Culture Gram Stain - Final Blood Blood Culture - Final Coagulase Negative Staph 01/31/21 21:55 Blood Culture - Preliminary Blood No Growth after 48 hours Assessment and Plan Plan: -Episode of unresponsiveness: Patient appear to have had a syncope patient will be monitored on telemetry patient had an echocardiogram which showed moderate to severe pulmonary hypertension, had a decreased EF of around 40-45%. Cardiology evaluated the patient. Patient is also being evaluated for seizures in the CVA/TIA. All the workup for her severe TIAs so far negative EEG did not show any seizure focus -Shortness of breath, acute hypoxic respiratory failure: Possibly secondary to congestive heart failure chronic systolic dysfunction with acute exacerbation patient does have pulmonary hypertension as well. Patient is on IV Lasix IV fluids CT chest did not show any evidence of pneumonia at this time and ant ibiotics were discontinued. Pulmonology will be consulted patient may need drainage of the right-sided pleural effusion as patient is hypoxic . -Right-sided pleural effusion: Secondary to his heart failure chronic systolic dysfunction with acute exacerbation as well as pulmonary hypertension and right- sided heart failure. Anticoagulation is on hold for possibility of thoracentesis on Thursday if pleural effusion doesn't resolve -Chronic atrial fibrillation -Moderate to severe pulmonary hypertension -Hypertension -Hyperlipidemia -Mild elevation of troponins probably secondary to CHF exacerbation -Lactic acidosis secondary to decreased organ perfusion which resolved at this time. -Type 2 diabetes mellitus hold off on metformin rest of medications were resumed and patient with sliding scale insulin -Asymptomatic bacteriuria will not require any antibiotics at this time. -DVT prophylaxis: Patient is already on Eliquis, which is being held temporarily for now
[2021-02-03] MEDS: METOPROLOL TARTRATE 50 MG TAB PO SCH ×2 (09:37→21:25)
[2021-02-03] MEDS: FUROSEMIDE 10 MG/ML 4 ML VIAL IV SCH ×2 (09:37→21:26)
[2021-02-03] MEDS: ISOSORBIDE MONONITRATE ER 60 MG TAB.ER.24H PO SCH (09:38)
[2021-02-03] MEDS: ENOXAPARIN 40 MG/0.4 ML SYRINGE SQ SCH ×2 (09:38→21:25)
[2021-02-03] MEDS: FENOFIBRATE 160 MG TAB PO SCH (09:38)
[2021-02-03] MEDS: lisinopriL 10 MG TAB PO SCH (09:38)
--- NOTE | 2021-02-03 10:56 | CT ---
EXAMINATION TYPE: CT brain wo con DATE OF EXAM: 02/03/2021 COMPARISON: 02/01/2021 INDICATION: Stroke, right facial DLP: 1099.4 mGycm, Automated exposure control for dose reduction was used. CONTRAST: None CT of the brain is performed utilizing 3 mm thick sections through the posterior fossa and 3 mm thick sections through the remaining calvarium. Study is not performed within 24 hours of arrival to the hospital. No abnormal hyperdensity is present to suggest an acute intracranial hemorrhage. No mass lesion is evident. No acute infarcts are evident. Mild periventricular white matter hypodensity may be present. Appears be a chronic lacunar infarct right periventricular white matter. Ventricles and sulci are prominent for the patient age. Paranasal sinuses and mastoid air cells within the [id number] are clear. IMPRESSIONS: 1. Chronic appearing changes. No significant interval change from the recent comparison.
--- NOTE | 2021-02-03 11:14 | P.PN ---
Subjective Progress Note Date: 02/03/21 Patient was seen at bedside and he stated that he's doing about the same today compared to yesterday. Denies of any new neurological deficits. Objective - Vital Signs Vital signs: Vital Signs Temp 98.6 F 02/03/21 09:00 Pulse 60 02/03/21 09:00 Resp 20 02/03/21 09:00 BP 147/70 02/03/21 09:00 Pulse Ox 97 02/03/21 09:00 Intake & Output 02/02/21 02/03/21 02/03/21 18:59 06:59 18:59 Intake Total 910 Output Total 800 450 Balance 110 -450 Weight 64 kg Intake: Intake, IV Titration 250 Amount Vancomycin 1,250 mg In 250 Sodium Chloride 0.9% 250 ml @ 125 mls/hr IVPB Q16H [facility] Rx#:[id number] Oral 660 Output: Urine 800 450 Other: Voiding Method Urinal Diaper Incontinent # Voids 0 # Bowel Movements 0 - Exam GENERAL: The patient is lying in bed and is not in acute distress. NEUROLOGICAL: Higher mental function: The patient is awake, alert, oriented to self and self. He correctly state the month was January but the year was 2012. Patient is following simple commands. No aphasia and no neglect. Cranial nerves: The pupils are round, equal and reactive to light and accommodation. Visual mak are full to confrontation throughout. Extraocular movement is intact no nystagmus is noted. Facial sensation is normal to touch throughout. No facial weakness noted. Hearing is moderately decrease bilaterally to hand rub. Tongue is midline and moved [id number] without any difficulty. There is no tongue bite. Mild to moderate dysarthria is noted (chronic). Shoulder shrug is normal bilaterally. Motor: Gait is deferred. The strength is 5- over 5 throughout. Normal tone and bulk. Cerebellum: Normal finger to nose bilaterally. Sensation: Sensation is normal to touch throughout. Reflexes (right/left): 1+ throughout. Plantars are downgoing bilaterally. - Labs CBC & Chem 7: 02/02/21 08:06 02/03/21 07:07 Labs: Abnormal Lab Results - Last 24 Hours (Table) 02/02/21 02/02/21 02/02/21 Range/Units 11:50 16:56 20:18 Carbon Dioxide (22-30) mmol/L BUN (9-20) mg/dL POC Glucose (mg/dL) 155 H 117 H 196 H (75-99) mg/dL 02/03/21 Range/Units 07:07 Carbon Dioxide 35 H (22-30) mmol/L BUN 38 H (9-20) mg/dL POC Glucose (mg/dL) (75-99) mg/dL Microbiology - Last 24 Hours (Table) 01/31/21 21:30 Blood Culture Gram Stain - Final Blood Blood Culture - Final Coagulase Negative Staph 01/31/21 21:55 Blood Culture - Preliminary Blood No Growth after 48 hours Assessment and Plan Assessment: This is an 80 old gentleman with significant heart failure status post pacemaker that presented to the emergency department 01/31/2021 after being found down on the kitchen floor. Currently he has mild right facial droop. According the patient [id number] he had the fall about 4 years ago and he had extensive workup and was told due to his heart failure * Transient Right lower facial droop likely due to Transient ischemic attack (especially with atrial fibrillation and other risk factors (hear failure, DM, Hypertension, age). * Episode of unresponsiveness: Unknow etiology. Seems cardiac in etiology (signficant cardiac problems and per [id number]-ut-fna stated he had arrhythmia on presentation (but equipment technician stated his device was interrogated and normal) and had similar presenation 4 years ago and was told cardiac in etiology). Possibly cause of stroke. Unlikely seizure but cannot exclude. * Previous history of stroke without any neurological deficit (about 4 years ago were told by his cardiology he had a stroke possibly thru imaging) * Mild Thrombocytopenia * Elevated troponin * Heart failure status post pacemaker * Pleural effusion * Hypertension * Chronic history of diabetes * Hard of hearing Plan: CT of the head is reported as cerebral atrophy. No acute intracranial abnormality. CT of the cervical spine is reported as minor degenerative changes in the cervical spine (in body of report it mentioned of C4-C5). No fracture seen. No evidence of soft tissue mass involving the visualized facial bones including the orbits and upper maxilla. Repeat CT of the head on 02/01/2021 was done to see if there is any subacute ischemia that wasn't seen on the initial CT since we cannot get MRI of the bra in. It is reported as atrophy with chronic appearing periventricular white matter ischemic changes. Upon reviewing it I don't see any acute or subacute ischemia that is obvious. Affect the patient had excellent vacuo over the posterior horn on over the left which is chronic. Also repeat CT of the head on 02/03/2021 was done to evaluate for any subacute ischemia that was not picked up on the initial 2 CT's: It is reported as chronic appearing changes. No significant interval change from the recent comparison. Carotid duplex is reported as no hemodynamic significant stenosis seen in either internal carotid arteries. 2-D echo was reported as moderate concentric left ventricular hypertrophy. Overall left ventricular systolic function is mild mildly impaired with ejection fraction of 40-45%. Left atrium is severely dilated. There is severe pulmonary hypertension. Lipid panel: Triglyceride 99, cholesterol of 87, LDL 29 and HDL is 38. Patient is within the goal for stroke less than 70. Patient is on Eliquis 2.5 mg 1 tablet twice a day was held for pleural effusion and will consider doing thoracentesis. I recommend adding Plavix 75 mg in addition (platelets are mildly low and will defer adding it if safe from primary perspective) . Continue Lipitor 40 mg daily at bedtime for secondary stroke prophylaxis A routine EEG on 02/01/2021 is normal. There are no focal slowing, epileptiform discharges or seizure on the EEG. Vitamin B12 is 459 which is normal and it was done since the patient on the repeat MCV was slightly elevated and it was 101.3 but on the initial was now (100) it was considered within the normal limits. Every 4 neuro checks. Continue cardiac monitoring Cardiology is on board. Patient stated the status post ICD biventricular for cardiomyopathy a device interrogation did not reveal any significant arrhythmia. Spoke with nurse practior and she stated cardiology will interrogate the device tomorrow again. We'll defer the rest of the medical management to the primary team. Upon discharge the patient needs to follow-up with a neurologist within 1-2 weeks. There is no further work-up needed at this time. Neurology will sign off. Please reconsult if needed. The plan was discussed with the patient's nurse and cardiology team. Jameson Hernandez M.D. Neuro-hospitalist Time with Patient: Less than 30
[2021-02-03 11:58] LABS: Glucose,Whole Blood 97 mg/dL (75-99)
--- NOTE | 2021-02-03 12:59 | P.PN ---
Subjective Progress Note Date: 02/03/21 HISTORY OF PRESENT ILLNESS: 02/02/2021 Patient examined this morning at the bedside. Patient is more awake today compared to yesterday. He denies chest pain or pressure. Denies shortness of breath. Repeat head CT yesterday performed revealing atrophy with chronic appearing periventricular white matter ischemic changes. No arrhythmias noted on telemetry. Blood pressure 139/66. Heart rate in the 60s. He is afebrile. He is on 4 L nasal cannula with oxygen saturations greater then 92%. Echocardiogram obtained revealed ejection fraction 40-45%, mild aortic regurgitation, mild mitral regurgitation, mild tricuspid regurgitation, and severe pulmonary hypertension 02/03/2021 Patient examined this morning at the bedside. Patient denies chest pain or pressure. Denies shortness of breath. No arrhythmias noted on telemetry. Repeat head CT was negative for acute process. PHYSICAL EXAM: VITAL SIGNS: Reviewed. GENERAL: Well-developed in no acute distress. NECK: Supple. No JVD or thyromegaly LUNGS: Respirations even and unlabored. Lungs diminished bilaterally. HEART: Regular rate and rhythm. S1 and S2 heard. EXTREMITIES: Normal range of motion. No clubbing or cyanosis. Peripheral pulses intact. No lower extremity edema ASSESSMENT: Right sided facial droop, possible TIA Episode of unresponsiveness, etiology unclear, ICD interrogation without evidence of arrhythmias Previous history of CVA History of nonischemic cardiomyopathy, status post biventricular ICD Chronic persistent atrial fibrillation Hypertension Hyperlipidemia Diabetes mellitus Large right-sided pleural effusion PLAN: Neurology following Pulmonary following. Eliquis placed on hold. Patient to have ultrasound of the chest on Thursday and possible right sided thoracentesis per pulmonary on Thursday Continue telemetry monitoring Will contact device rep ([employer]) on Thursday to have device interrogated again Further recommendations pending patient's course Nurse practitioner note has been reviewed by physician. Signing provider agrees with the documented findings, assessment, and plan of care. Objective - Vital Signs Vital signs: Vital Signs Temp 98.3 F 02/03/21 12:00 Pulse 60 02/03/21 12:00 Resp 20 02/03/21 12:00 BP 128/80 02/03/21 12:00 Pulse Ox 100 02/03/21 12:00 Intake & Output 02/02/21 02/03/21 02/03/21 18:59 06:59 18:59 Intake Total 910 Output Total 800 450 Balance 110 -450 Weight 64 kg Intake: Intake, IV Titration 250 Amount Vancomycin 1,250 mg In 250 Sodium Chloride 0.9% 250 ml @ 125 mls/hr IVPB Q16H [facility] Rx#:[id number] Oral 660 Output: Urine 800 450 Other: Voiding Method Urinal Diaper Incontinent # Voids 0 # Bowel Movements 0 - Labs CBC & Chem 7: 02/02/21 08:06 02/03/21 07:07 Labs: Abnormal Lab Results - Last 24 Hours (Table) 02/02/21 02/02/21 02/03/21 Range/Units 16:56 20:18 07:07 Carbon Dioxide 35 H (22-30) mmol/L BUN 38 H (9-20) mg/dL POC Glucose (mg/dL) 117 H 196 H (75-99) mg/dL Microbiology - Last 24 Hours (Table) 01/31/21 21:30 Blood Culture Gram Stain - Final Blood Blood Culture - Final Coagulase Negative Staph 01/31/21 21:55 Blood Culture - Preliminary Blood No Growth after 48 hours
[2021-02-03 17:04] LABS: Glucose,Whole Blood 138 mg/dL (75-99)
--- NOTE | 2021-02-03 19:57 | P.PN ---
Subjective Progress Note Date: 02/03/21 Principal diagnosis: Syncopal episode Acute rhabdomyolysis Acute hypoxic respiratory failure saturation of 90% on 3 L Moderate to large right-sided pleural effusion differential diagnoses likely heart failure less likely related to neoplasm, pneumonia or atelectasis fluid overload History of stroke on direct oral anticoagulants Acute on chronic systolic heart failure related to Cardiomyopathy ejection fraction of 40-45% 02/03/2021, patient seen eval examined during the rounds overall mental status much better more awake and alert, however remains short of breath, no chest pain is present, patient has been explained about right-sided pleural effusion, patient remains off direct oral anticoagulants in place has been on Lovenox, care plan discussed with RN will reassess the amount of fluid and possible thoracentesis on the right side This is a 80-year-old male seen eval examined patient the came into the hospital after recurrent and repeated fall due to acute rhabdomyolysis, patient does have a history of the stroke in the past have been on direct oral anticoagulant, chest x-ray and CAT scan show large right-sided pleural effusion I was asked to evaluate further shortness of breath appears to be related to large pleural effusion and lung compression atelectasis, Review of the data revealed that 80-year-old male who presents to the emergency department after he was found down on his kitchen floor. [id number]-[id number] is at bedside and helps provide history. States that they last spoke to him at 7 PM yesterday and the patient was his normal self. He lives alone, ambulates unassisted and drives. States that he was found by his son confused at 6 PM th is evening. He did have some facial swelling unknown if it was secondary to prolonged down time. Some facial asymmetry noted. No unilateral weakness. 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 Patient is on anticoagulation. He is able to answer questions appropriately on upon arrival. Noted to have some increased respirations. He denies headaches or visual changes. No neck pain. Denies back or flank pain. No chest pain. Denies any pain in his arms or legs. Patient reports that he was in the kitchen attempting to take his medications and this is the last thing he remembers, patient used to smoke heavily in the past but could not recall extent and duration of smoking Objective - Vital Signs Vital signs: Vital Signs Temp 98.3 F 02/03/21 12:00 Pulse 60 02/03/21 12:00 Resp 20 02/03/21 12:00 BP 128/80 02/03/21 12:00 Pulse Ox 100 02/03/21 12:00 Intake & Output 02/03/21 02/03/21 02/04/21 06:59 18:59 06:59 Intake Total 910 Output Total 450 1250 Balance -450 -340 Weight 64 kg Intake: Intake, IV Titration 100 Amount Magnesium Sulfate-D5w Pmx 100 1 gm In Dextrose/Water 1 100ml.bag @ 100 mls/hr IVPB ONCE [facility] Rx#: [id number] Oral 810 Output: Urine 450 1250 Other: Voiding Method Urinal Diaper Incontinent # Voids 1 # Bowel Movements 0 - Exam - Constitutional General appearance: average body habitus, cooperative, disheveled, mild distress - EENT Eyes: EOMI, PERRLA, poor dentition ENT: normal oropharynx Ears: bilateral: normal - Neck Carotids: bilateral: upstroke normal - Respiratory Respiratory: right: diminished, dullness - Cardiovascular Rhythm: regular Heart sounds: normal: S1, S2 - Gastrointestinal General gastrointestinal: distended, normal bowel sounds - Integumentary Integumentary: normal turgor - Neurologic Neurologic: CNII-XII intact - Musculoskeletal Musculoskeletal: generalized weakness - Psychiatric Psychiatric: A&O x's 3, appropriate affect, intact judgment & insight - Labs CBC & Chem 7: 02/02/21 08:06 02/03/21 07:07 Labs: Abnormal Lab Results - Last 24 Hours (Table) 02/02/21 02/03/21 02/03/21 Range/Units 20:18 07:07 16:59 Carbon Dioxide 35 H (22-30) mmol/L BUN 38 H (9-20) mg/dL POC Glucose (mg/dL) 196 H 138 H (75-99) mg/dL Microbiology - Last 24 Hours (Table) 01/31/21 21:30 Blood Culture Gram Stain - Final Blood Blood Culture - Final Coagulase Negative Staph 01/31/21 21:55 Blood Culture - Preliminary Blood No Growth after 48 hours Assessment and Plan Assessment: Syncopal episode Acute rhabdomyolysis Acute hypoxic respiratory failure saturation of 90% on 3 L Moderate to large right-sided pleural effusion differential diagnoses likely heart failure, less likely related to neoplasm, pneumonia or atelectasis fluid overload History of stroke on direct oral anticoagulants Acute on chronic systolic heart failure related to Cardiomyopathy ejection fraction of 40-45% Plan: Continue gentle diuresis Maximal medical therapy Fall precautions Continue to hold direct anticoagulant Lovenox 40 mg subcu every 12 Last dose off Lovenox on tonight Ultrasound of chest bilateral tomorrow morning Right-sided thoracentesis tomorrow if pleural effusion did not resolve by that time Continue supportive care, further recommendations pending plan of care as per clinical response of the patient Time with Patient: Greater than 30
[2021-02-03 20:41] LABS: Glucose,Whole Blood 150 mg/dL (75-99)
[2021-02-03] MEDS: ATORVASTATIN 40 MG TAB PO SCH (21:26)
--- NOTE | 2021-02-03 23:26 | PN ---
PROGRESS NOTE DATE OF SERVICE: 02/03/2021 REASON FOR FOLLOW UP: Positive blood culture. INTERVAL HISTORY: The patient is currently afebrile. The patient is breathing comfortably. Denies having any chest pain or shortness of breath. Occasional cough. No abdominal pain. No diarrhea. PHYSICAL EXAMINATION: Blood pressure is 130/72 with a pulse of 70, temperature 97.6. He is 98% on 2 L nasal cannula. General description is an elderly male lying in bed in no distress. Respiratory system: Unlabored breathing, clear to auscultation anteriorly. Heart S1, S2. Regular rate and rhythm. ABDOMEN: Soft. No tenderness. LABS: BUN of 30, creatinine 0.95. DIAGNOSTIC IMPRESSION AND PLAN: Patient with a positive blood culture Coagulase negative staph in this patient with no clinical disease to go along with it, slightly contaminant. Blood cultures repeat ordered, currently off antibiotic therapy and continue supportive care. MMODL / IJN: [id number] /
[2021-02-04 06:19] LABS: Glucose,Whole Blood 117 mg/dL (75-99)
[2021-02-04] MEDS: INSULIN ASPART (NovoLOG) 100 UNIT/ML VIAL SQ SCH ×4 (06:37→21:06)
[2021-02-04 07:28] LABS: HCT 42.8 % (39.0-53.0); HGB 14.1 gm/dL (13.0-17.5); MCH 32.5 pg (25.0-35.0); MCHC 33.1 g/dL (31.0-37.0); MCV 98.4 fL (80.0-100.0); Mean Platelet Volume 8.8; Platelet Count 118 k/uL (150-450); RBC 4.35 m/uL (4.30-5.90); RDW 14.8 % (11.5-15.5); WBC 4.2 k/uL (3.8-10.6)
[2021-02-04 07:37] LABS: Calcium 8.8 mg/dL (8.4-10.2); Magnesium 1.8 mg/dL (1.6-2.3); Potassium 3.5 mmol/L (3.5-5.1)
[2021-02-04] MEDS: lisinopriL 10 MG TAB PO SCH (08:19)
[2021-02-04] MEDS: ISOSORBIDE MONONITRATE ER 60 MG TAB.ER.24H PO SCH (08:19)
[2021-02-04] MEDS: FENOFIBRATE 160 MG TAB PO SCH (08:19)
[2021-02-04] MEDS: FUROSEMIDE 10 MG/ML 4 ML VIAL IV SCH ×2 (08:19→21:07)
[2021-02-04] MEDS: METOPROLOL TARTRATE 50 MG TAB PO SCH ×2 (08:19→21:07)
--- NOTE | 2021-02-04 08:41 | US ---
EXAMINATION TYPE: US chest DATE OF EXAM: 02/04/2021 COMPARISON: NONE CLINICAL HISTORY: Thoracentesis 02/04; bilateral u/s. TECHNIQUE: Targeted ultrasound of the posterior lower EXAM MEASUREMENTS: Right Pleural Effusion pocket size: 7.2 cm Right skin surface to fluid distance: 2.7 cm Lung within pocket at: 5.2cm Left Pleural Effusion pocket size: 0 Right side marked for possible thoracentesis outside the dept. Left side not marked for possible thoracentesis outside the dept. Pulmonologists are able to review the images in the patient?s EMR. IMPRESSIONS: as above
[2021-02-04] MEDS ORDERED: ERGOCALCIFEROL 1,250 MCG (50,000 IU) CAPSULE PO SCH (09:00)
--- NOTE | 2021-02-04 09:49 | P.PN ---
Subjective Patient is seen and examined sitting up on the edge of the bed in no acute distress. He denies symptoms of chest pain, shortness of breath, dizziness or palpitations. Blood pressure 150/80 heart rate 57 afebrile maintaining oxygen saturation on nasal cannula. Laboratory data reviewed, WBC 4.2, hemoglobin 14.1, platelets 118, sodium 138, potassium 3.5, creatinine 1.07 and magnesium 1.8. Currently maintained on atorvastatin 40 mg daily, Lasix 40 mg IV twice a day, Imdur 60 mg daily, lisinopril 10 mg daily and metoprolol 100 mg twice a day. GENERAL: Well-appearing, well-nourished and in no acute distress. NECK: Supple without JVD or thyromegaly. LUNGS: Breath sounds clear to auscultation bilaterally. Respiration equal and unlabored. No wheezes, rales or rhonchi. HEART: Regular rate and rhythm without murmurs, rubs or gallops. S1 and S2 heard. EXTREMITIES: Normal range of motion, no edema. No clubbing or cyanosis. Peripheral pulses intact. ASSESSMENT Right-sided facial droop, possible TIA Episode of unresponsiveness, etiology unclear. ICD interrogation and unremarkable History of CVA Nonischemic cardiomyopathy status post BiV ICD Chronic persistent atrial fibrillation History of complete heart block status post permanent pacemaker implantation Hypertension Dyslipidemia Diabetes mellitus PLAN Pacemaker interrogation was unremarkable with no evidence of arrhythmia noted. There is no loss of pacing. Telemetry tracings have been unremarkable. He continues to be in atrial fibrillation persistently. He denies symptoms of chest pain, shortness of breath, dizziness or palpitations. Recommend proceeding with tilt table test to assess for dysautonomia. Nurse Practitioner note has been reviewed, I agree with a documented findings and plan of care. Patient was seen and examined. Objective - Vital Signs Vital signs: Vital Signs Temp 98.3 F 02/04/21 04:00 Pulse 57 L 02/04/21 04:00 Resp 16 02/04/21 04:00 BP 150/80 02/04/21 04:00 Pulse Ox 98 02/04/21 04:00 Intake & Output 02/03/21 02/04/21 02/04/21 18:59 06:59 18:59 Intake Total 910 Output Total 1250 200 Balance -340 -200 Weight 61 kg Intake: Intake, IV Titration 100 Amount Magnesium Sulfate-D5w Pmx 100 1 gm In Dextrose/Water 1 100ml.bag @ 100 mls/hr IVPB ONCE ONE Rx#: [id number] Oral 810 Output: Urine 1250 200 Other: Voiding Method Urinal Diaper Incontinent # Voids 1 1 # Bowel Movements 0 - Labs CBC & Chem 7: 02/04/21 06:27 02/04/21 06:27 Labs: Abnormal Lab Results - Last 24 Hours (Table) 02/03/21 02/03/21 02/04/21 Range/Units 16:59 20:17 06:14 Plt Count (150-450) k/uL Chloride (98-107) mmol/L Carbon Dioxide (22-30) mmol/L BUN (9-20) mg/dL Glucose (74-99) mg/dL POC Glucose (mg/dL) 138 H 150 H 117 H (75-99) mg/dL 02/04/21 02/04/21 Range/Units 06:27 06:27 Plt Count 118 L (150-450) k/uL Chloride 96 L (98-107) mmol/L Carbon Dioxide 37 H (22-30) mmol/L BUN 39 H (9-20) mg/dL Glucose 109 H (74-99) mg/dL POC Glucose (mg/dL) (75-99) mg/dL Microbiology - Last 24 Hours (Table) 01/31/21 21:55 Blood Culture - Preliminary Blood No Growth after 72 hours 01/31/21 21:30 Blood Culture Gram Stain - Final Blood Blood Culture - Final Coagulase Negative Staph
[2021-02-04] MEDS: SODIUM CHLORIDE 0.9% 1,000 ML IV SCH (10:50)
--- NOTE | 2021-02-04 11:28 | P.PN ---
Subjective Progress Note Date: 02/04/21 Principal diagnosis: Syncopal episode Acute rhabdomyolysis Acute hypoxic respiratory failure saturation of 90% on 3 L Moderate to large right-sided pleural effusion differential diagnoses likely heart failure less likely related to neoplasm, pneumonia or atelectasis fluid overload History of stroke on direct oral anticoagulants Acute on chronic systolic heart failure related to Cardiomyopathy ejection fraction of 40-45% 02/04/2021 patient seen and evaluated examined during the rounds labs reviewed medications reviewed care plan discussed with the staff at length, ultrasound of the chest reviewed, left side no effusion is present in the right side is small to moderate pleural effusions present about 7 cm in size with portion of her lung intervening, would recommend conservative care gentle diuresis, will follow closely patient is high risk of complication related to thoracentesis, can resume direct oral anticoagulants 02/03/2021, patient seen eval examined during the rounds overall mental status much better more awake and alert, however remains short of breath, no chest pain is present, patient has been explained about right-sided pleural effusion, patient remains off direct oral anticoagulants in place has been on Lovenox, care plan discussed with RN will reassess the amount of fluid and possible thoracentesis on the right side This is a 80-year-old male seen eval examined patient the came into the hospital after recurrent and repeated fall due to acute rhabdomyolysis, patient does have a history of the stroke in the past have been on direct oral anticoagulant, chest x-ray and CAT scan show large right-sided pleural effusion I was asked to evaluate further shortness of breath appears to be related to large pleural effusion and lung compression atelectasis, Review of the data revealed that 80-year-old male who presents to the emergency department after he was found down on his kitchen floor. [id number] is at bedside and helps provide history. States that they last spoke to him at 7 PM yesterday and the patient was his normal self. He lives alone, ambulates unassisted and drives. States that he was found by his son confused at 6 PM this evening. He did have some facial swelling unknown if it was secondary to prolonged down time. Some facial asymmetry noted. No unilateral weakness. 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 Patient is on anticoagulation. He is able to answer questions appropriately on upon arrival. Noted to have some increased respirations. He denies headaches or visual changes. No neck pain. Denies back or flank pain. No chest pain. Denies any pain in his arms or legs. Patient reports that he was in the kitchen attempting to take his medications and this is the last thing he remembers, patient used to smoke heavily in the past but could not recall extent and duration of smoking Objective - Vital Signs Vital signs: Vital Signs Temp 97.8 F 02/04/21 11:11 Pulse 60 02/04/21 11:11 Resp 20 02/04/21 11:11 BP 132/78 02/04/21 11:11 Pulse Ox 98 02/04/21 11:11 Intake & Output 02/03/21 02/04/21 02/04/21 18:59 06:59 18:59 Intake Total 910 Output Total 1250 200 Balance -340 -200 Weight 61 kg Intake: Intake, IV Titration 100 Amount Magnesium Sulfate-D5w Pmx 100 1 gm In Dextrose/Water 1 100ml.bag @ 100 mls/hr IVPB ONCE ONE Rx#: [id number] Oral 810 Output: Urine 1250 200 Other: Voiding Method Urinal Diaper Incontinent # Voids 1 1 # Bowel Movements 0 - Exam - Constitutional General appearance: average body habitus, cooperative, disheveled, mild distress - EENT Eyes: EOMI, PERRLA, poor dentition ENT: normal oropharynx Ears: bilateral: normal - Neck Carotids: bilateral: upstroke normal - Respiratory Respiratory: right: diminished, dullness - Cardiovascular Rhythm: regular Heart sounds: normal: S1, S2 - Gastrointestinal General gastrointestinal: distended, normal bowel sounds - Integumentary Integumentary: normal turgor - Neurologic Neurologic: CNII-XII intact - Musculoskeletal Musculoskeletal: generalized weakness - Psychiatric Psychiatric: A&O x's 3, appropriate affect, intact judgment & insight - Labs CBC & Chem 7: 02/04/21 06:27 02/04/21 06:27 Labs: Abnormal Lab Results - Last 24 Hours (Table) 02/03/21 02/03/21 02/04/21 Range/Units 16:59 20:17 06:14 Plt Count (150-450) k/uL Chloride (98-107) mmol/L Carbon Dioxide (22-30) mmol/L BUN (9-20) mg/dL Glucose (74-99) mg/dL POC Glucose (mg/dL) 138 H 150 H 117 H (75-99) mg/dL 02/04/21 02/04/21 Range/Units 06:27 06:27 Plt Count 118 L (150-450) k/uL Chloride 96 L (98-107) mmol/L Carbon Dioxide 37 H (22-30) mmol/L BUN 39 H (9-20) mg/dL Glucose 109 H (74-99) mg/dL POC Glucose (mg/dL) (75-99) mg/dL Microbiology - Last 24 Hours (Table) 01/31/21 21:55 Blood Culture - Preliminary Blood No Growth after 72 hours 01/31/21 21:30 Blood Culture Gram Stain - Final Blood Blood Culture - Final Coagulase Negative Staph Assessment and Plan Assessment: Syncopal episode Acute rhabdomyolysis Acute hypoxic respiratory failure saturation of 90% on 3 L Small to moderate size right-sided pleural effusion differential diagnoses likely heart failure, History of stroke on direct oral anticoagulants Acute on chronic systolic heart failure related to Cardiomyopathy ejection fraction of 40-45% Plan: Continue gentle diuresis Maximal medical therapy Fall precautions Can resume direct anticoagulant, patient is high risk of complication associated with right thoracentesis Ultrasound of chest bilateral reviewed at length Will hold right thoracentesis and reassess patient as outpatient Continue supportive care, further recommendations pending plan of care as per clinical response of the patient Time with Patient: Greater than 30
[2021-02-04 12:08] LABS: Glucose,Whole Blood 116 mg/dL (75-99)
--- NOTE | 2021-02-04 12:58 | PN ---
PROGRESS NOTE DATE OF SERVICE: 02/04/2021 REASON FOR FOLLOWUP: Positive blood culture. INTERVAL HISTORY: The patient is currently afebrile. The patient is breathing comfortably on room air. He denies having any chest pain or shortness of breath or cough. No abdominal pain, no diarrhea. PHYSICAL EXAMINATION: Blood pressure 132/78 with a pulse of 60, temperature 97.8. He is 98% on room air. General description is an elderly male lying in bed in no distress. RESPIRATORY SYSTEM: Unlabored breathing, clear to auscultation anteriorly. HEART: S1, S2. Regular rate and rhythm. ABDOMEN: Soft, no tenderness. LABS: Hemoglobin is 14.1, white count 4.2, BUN of 39, creatinine 1.07. Blood culture repeat so far negative. DIAGNOSTIC IMPRESSION AND PLAN: Patient with positive blood culture with coagulase-negative staph likely a skin contamination. Patient with no clinical disease to go along with it. The patient is currently afebrile, normal white count and is monitored closely off antibiotic therapy. No need for antibiotic on discharge. Continue supportive care. MMODL / IJN: [id number] /
[2021-02-04 17:05] LABS: Glucose,Whole Blood 182 mg/dL (75-99)
--- NOTE | 2021-02-04 17:17 | P.EPPROC ---
- EP Procedure Note Electrophysiology Procedure Note: Patient presented with an episode of loss of consciousness He has a biventricular pacemaker implanted The pacemaker was interrogated this morning Atrial pacing threshold 399 ohms, patient didn't persistent atrial fibrillation RV lead impedance 475 ohms, pacing threshold 0.9 V at 0.4 ms and R waves 9.6 mV LV pacing impedance 1026 ohms, pacing threshold 1.25 V at 0.4 ms No evidence for any noise or lead fracture No ventricular arrhythmias noted Biventricular pacing percentage 99.5% Persistent atrial fibrillation No abnormality noted that could explain his syncope
--- NOTE | 2021-02-04 17:19 | P.PCN ---
Preoperative Diagnosis: Patient could not stand up for tilt table test
[2021-02-04 20:56] LABS: Glucose,Whole Blood 140 mg/dL (75-99)
[2021-02-04] MEDS: APIXABAN 2.5 MG TABLET PO SCH (21:07)
[2021-02-04] MEDS: ATORVASTATIN 40 MG TAB PO SCH (21:07)
--- NOTE | 2021-02-04 22:39 | P.PN ---
Subjective Progress Note Date: 02/04/21 Principal diagnosis: Unresponsive, Fall Mr. Ngoc pelaez an 80-year-old male who lives by himself in an apartment with some assistance was found unresponsive. Patient's family members found him down on the kitchen floor, after they did not hear from him for a day. Patient had stroke work-up done with CT of the head showing cerebral atrophy, CT of the spine showing degenerative disc disease. He had a CT of the chest showing moderate pleural effusion. Patient also had CT angio of the head and neck, carotid artery Doppler, EEG all of which were essentially within normal limits. Neurology cardiology and pulmonary have been closely following the patient. On 02/04/2021 patient was seen and examined at the bedside. He does not appear to be in acute distress. Patient is pleasantly confused but oriented to self. He denied having any chest pain or difficulty in breathing. No cough or fevers. On reviewing his vitals temperature 98.3, heart rate 61, respiratory rate 18, blood pressure 134/78, saturating at 94 on room air. On reviewing his labs white count of 4.2, hemoglobin 14.1, platelets 118. Sodium 138, potassium 3.5, chloride 96, bicarb 37, BUN 39, creatinine 1.07. Review of systems could not be done as the patient is confused. Active Medications Apixaban (Apixaban 2.5 Mg Tablet) 2.5 mg PO BID [facility] Last Admin: 02/04/21 21:07 Dose: 2.5 mg Documented by: Atorvastatin Calcium (Atorvastatin 40 Mg Tab) 40 mg PO HS [facility] Last Admin: 02/04/21 21:07 Dose: 40 mg Documented by: Clotrimazole (Clotrimazole 1% Cream 15 Gm Tube) 1 applic TOPICAL DAILY PRN PRN Reason: Rash Ergocalciferol (Ergocalciferol 1,250 Mcg (50,000 Iu) Capsule) 1,250 mcg PO Q7D [facility] Last Admin: 02/04/21 08:19 Dose: 1,250 mcg Documented by: Fenofibrate (Fenofibrate 160 Mg Tab) 160 mg PO DAILY [facility] Last Admin: 02/04/21 08:19 Dose: 160 mg Documented by: Furosemide (Furosemide 10 Mg/Ml 4 Ml Vial) 40 mg IV Q12HR [facility] Last Admin: 02/04/21 21:07 Dose: 40 mg Documented by: Sodium Chloride (Saline 0.9%) 1,000 mls @ 20 mls/hr IV .Q24H [facility] Last Admin: 02/04/21 10:50 Dose: Not Given Documented by: Insulin Aspart (Insulin Aspart (Novolog) 100 Unit/Ml Vial) 0 unit SQ ACHS [facility]; Protocol Last Admin: 02/04/21 21:06 Dose: 1 unit Documented by: Isosorbide Mononitrate (Isosorbide Mononitrate Er 60 Mg Tab.Er.24h) 60 mg PO DAILY [facility] Last Admin: 02/04/21 08:19 Dose: 60 mg Documented by: Lisinopril (Lisinopril 10 Mg Tab) 10 mg PO DAILY [facility] Last Admin: 02/04/21 08:19 Dose: 10 mg Documented by: Metoprolol Tartrate (Metoprolol Tartrate 50 Mg Tab) 100 mg PO BID [facility] Last Admin: 02/04/21 21:07 Dose: 100 mg Documented by: Naloxone HCl (Naloxone 0.4 Mg/Ml 1 Ml Vial) 0.2 mg IV Q2M PRN PRN Reason: Opioid Reversal Objective - Vital Signs Vital signs: Vital Signs Temp 97.8 F 02/04/21 11:11 Pulse 57 L 02/04/21 12:00 Resp 20 02/04/21 12:00 BP 113/72 02/04/21 12:00 Pulse Ox 93 L 02/04/21 12:00 Intake & Output 02/03/21 02/04/21 02/04/21 18:59 06:59 18:59 Intake Total 910 660 Output Total 1250 200 350 Balance -340 -200 310 Weight 61 kg Intake: Intake, IV Titration 100 Amount Magnesium Sulfate-D5w Pmx 100 1 gm In Dextrose/Water 1 100ml.bag @ 100 mls/hr IVPB ONCE ONE Rx#: [id number] Oral 810 660 Output: Urine 1250 200 350 Other: Voiding Method Urinal Diaper Incontinent # Voids 1 1 # Bowel Movements 0 - Exam PHYSICAL EXAMINATION: GENERAL: The patient is alert and oriented to self, patient is on mild respiratory distress. HEENT: Pupils are round and equally reacting to light. EOMI. No scleral icterus. No conjunctival pallor. CARDIOVASCULAR: Irregular and loud P2 no pedal edema PULMONARY: Chest is clear to auscultation, no wheezing or crackles. ABDOMEN: Soft, nontender, nondistended, normoactive bowel sounds. No palpable organomegaly. MUSCULOSKELETAL: No joint swelling or deformity. EXTREMITIES: No cyanosis, clubbing, or pedal edema. NEUROLOGICAL: Gross neurological examination did not reveal any focal deficits. SKIN: No rashes. - Labs CBC & Chem 7: 02/05/21 06:25 02/05/21 06:25 Labs: Abnormal Lab Results - Last 24 Hours (Table) 02/03/21 02/03/21 02/04/21 Range/Units 16:59 20:17 06:14 Plt Count (150-450) k/uL Chloride (98-107) mmol/L Carbon Dioxide (22-30) mmol/L BUN (9-20) mg/dL Glucose (74-99) mg/dL POC Glucose (mg/dL) 138 H 150 H 117 H (75-99) mg/dL 02/04/21 02/04/21 02/04/21 Range/Units 06:27 06:27 12:06 Plt Count 118 L (150-450) k/uL Chloride 96 L (98-107) mmol/L Carbon Dioxide 37 H (22-30) mmol/L BUN 39 H (9-20) mg/dL Glucose 109 H (74-99) mg/dL POC Glucose (mg/dL) 116 H (75-99) mg/dL Microbiology - Last 24 Hours (Table) 02/03/21 10:59 Blood Culture - Preliminary Blood No Growth after 24 hours 01/31/21 21:55 Blood Culture - Preliminary Blood No Growth after 72 hours Assessment and Plan Assessment: ASSESSMENT Episode of unresponsiveness Possible TIA - transient right facial droop Syncopal episode Acute hypoxic respiratory failure- due to CHF exacerbation Acute on chronic systolic heart failure Moderate to severe pulmonary hypertension Right-sided pleural effusion Chronic atrial fibrillation Hypertension Hyperlipidemia Type 2 diabetes mellitus Mild thrombocytopenia Biventricular pacemaker in place PLAN : Patient had extensive work-up done for stroke by neurology. His anticoagulation with Eliquis was on hold for possible thoracentesis. Patient had a chest ultrasound done today showing right pleural effusion pocket size 7.2 cm and left pleural effusion pocket size 0. Pulmonary Dr. Kelly to hold off on thoracentesis due to minimal effusion. He was restarted on his anticoagulation. Patient has a biventricular pacemaker, it was interrogated this morning cardiology Dr. Duran on board and following the patient. Patient is scheduled for tilt table test later today. Continue with the current medication regimen. Overall prognosis is guarded. Further recommendations to follow depending on the progress of the patient.
[2021-02-05 06:15] LABS: Glucose,Whole Blood 159 mg/dL (75-99)
[2021-02-05] MEDS: INSULIN ASPART (NovoLOG) 100 UNIT/ML VIAL SQ SCH ×4 (06:20→20:26)
[2021-02-05 07:25] LABS: Basophils % (A) 0 %; Eosinophils # (A) 0.1 k/uL (0-0.7); Eosinophils % (A) 2 %; HCT 41.3 % (39.0-53.0); Lymphocytes # (A) 0.8 k/uL (1.0-4.8); Lymphocytes % (A) 14 %; MCH 33.4 pg (25.0-35.0); MCV 98.4 fL (80.0-100.0); Mean Platelet Volume 8.2; Monocytes # (A) 0.6 k/uL (0-1.0); Monocytes % (A) 10 %; Neutrophils # (A) 4.1 k/uL (1.3-7.7); Neutrophils % (A) 71 %; Platelet Count 115 k/uL (150-450); RDW 14.8 % (11.5-15.5); WBC 5.8 k/uL (3.8-10.6)
[2021-02-05 07:59] LABS: Calcium 8.9 mg/dL (8.4-10.2); Potassium 3.5 mmol/L (3.5-5.1)
[2021-02-05] MEDS: SODIUM CHLORIDE 0.9% 1,000 ML IV SCH (08:24)
[2021-02-05] MEDS: FUROSEMIDE 10 MG/ML 4 ML VIAL IV SCH (10:19)
[2021-02-05] MEDS: APIXABAN 2.5 MG TABLET PO SCH ×2 (10:27→20:26)
[2021-02-05] MEDS: lisinopriL 10 MG TAB PO SCH (10:28)
[2021-02-05] MEDS: METOPROLOL TARTRATE 50 MG TAB PO SCH ×2 (10:28→20:26)
[2021-02-05] MEDS: FENOFIBRATE 160 MG TAB PO SCH (10:28)
[2021-02-05] MEDS: ISOSORBIDE MONONITRATE ER 60 MG TAB.ER.24H PO SCH (10:28)
[2021-02-05 12:04] LABS: Glucose,Whole Blood 162 mg/dL (75-99)
--- NOTE | 2021-02-05 13:40 | P.PN ---
Subjective Progress Note Date: 02/05/21 Principal diagnosis: Unresponsive, Fall Mr. Ngoc pelaez an 80-year-old male who lives by himself in an apartment with some assistance was found unresponsive. Patient's family members found him down on the kitchen floor, after they did not hear from him for a day. Patient had stroke work-up done with CT of the head showing cerebral atrophy, CT of the spine showing degenerative disc disease. He had a CT of the chest showing moderate pleural effusion. Patient also had CT angio of the head and neck, carotid artery Doppler, EEG all of which were essentially within normal limits. Neurology cardiology and pulmonary have been closely following the patient. On 02/04/2021 patient was seen and examined at the bedside. He does not appear to be in acute distress. Patient is pleasantly confused but oriented to self. He denied having any chest pain or difficulty in breathing. No cough or fevers. On reviewing his vitals temperature 98.3, heart rate 61, respiratory rate 18, blood pressure 134/78, saturating at 94 on room air. On reviewing his labs white count of 4.2, hemoglobin 14.1, platelets 118. Sodium 138, potassium 3.5, chloride 96, bicarb 37, BUN 39, creatinine 1.07. On review of systems On 02/05/2021 - and is seen and examined at the bedside. He is comfortably lying in bed appears to be no acute distress. As per discussion with nursing staff no acute events reported overnight. Patient is pleasantly confused, review of systems could not be done. On reviewing the vitals temperature of 98.6, crit 60, respiratory 20, blood pressure 134% the saturating at 90% on room air. On reviewing his labs hemoglobin is 14, white count of 5.8, platelets 1:15. Sodium on the Competition 3.5, Chloride 94, Bicarb 39, BUN 46, Creatinine 1.25. Active Medications Apixaban (Apixaban 2.5 Mg Tablet) 2.5 mg PO BID [facility] Last Admin: 02/05/21 10:27 Dose: 2.5 mg Documented by: Atorvastatin Calcium (Atorvastatin 40 Mg Tab) 40 mg PO HS [facility] Last Admin: 02/04/21 21:07 Dose: 40 mg Documented by: Clotrimazole (Clotrimazole 1% Cream 15 Gm Tube) 1 applic TOPICAL DAILY PRN PRN Reason: Rash Ergocalciferol (Ergocalciferol 1,250 Mcg (50,000 Iu) Capsule) 1,250 mcg PO Q7D [facility] Last Admin: 02/04/21 08:19 Dose: 1,250 mcg Documented by: Fenofibrate (Fenofibrate 160 Mg Tab) 160 mg PO DAILY [facility] Last Admin: 02/05/21 10:28 Dose: 160 mg Documented by: Furosemide (Furosemide 10 Mg/Ml 4 Ml Vial) 40 mg IV Q12HR [facility] Last Admin: 02/05/21 10:19 Dose: 40 mg Documented by: Sodium Chloride (Saline 0.9%) 1,000 mls @ 20 mls/hr IV .Q24H [facility] Last Admin: 02/05/21 08:24 Dose: Not Given Documented by: Insulin Aspart (Insulin Aspart (Novolog) 100 Unit/Ml Vial) 0 unit SQ ACHS [facility]; Protocol Last Admin: 02/05/21 12:32 Dose: 1 unit Documented by: Isosorbide Mononitrate (Isosorbide Mononitrate Er 60 Mg Tab.Er.24h) 60 mg PO DAILY [facility] Last Admin: 02/05/21 10:28 Dose: 60 mg Documented by: Lisinopril (Lisinopril 10 Mg Tab) 10 mg PO DAILY [facility] Last Admin: 02/05/21 10:28 Dose: 10 mg Documented by: Metoprolol Tartrate (Metoprolol Tartrate 50 Mg Tab) 100 mg PO BID [facility] Last Admin: 02/05/21 10:28 Dose: 100 mg Documented by: Naloxone HCl (Naloxone 0.4 Mg/Ml 1 Ml Vial) 0.2 mg IV Q2M PRN PRN Reason: Opioid Reversal Objective - Vital Signs Vital signs: Vital Signs Temp 98.6 F 02/05/21 11:16 Pulse 60 02/05/21 11:16 Resp 20 02/05/21 11:16 BP 135/73 02/05/21 11:16 Pulse Ox 90 L 02/05/21 11:16 Intake & Output 02/04/21 02/05/21 02/05/21 18:59 06:59 18:59 Intake Total 960 250 560 Output Total 450 1100 Balance 510 -850 560 Weight 59 kg Intake: IV 10 Invasive Line 2 10 Oral 960 240 560 Output: Urine 450 1100 Other: Voiding Method Urinal Urinal Diaper Incontinent # Voids 1 - Exam PHYSICAL EXAMINATION: GENERAL: The patient is alert and oriented to self only. Chronically ill appearing. HEENT: Pupils are round and equally reacting to light. EOMI. No scleral icterus. No conjunctival pallor. CARDIOVASCULAR: Irregular and loud P2 no pedal edema PULMONARY: Chest is clear to auscultation, no wheezing or crackles. ABDOMEN: Soft, nontender, nondistended, normoactive bowel sounds. No palpable organomegaly. MUSCULOSKELETAL: No joint swelling or deformity. EXTREMITIES: No cyanosis, clubbing, or pedal edema. NEUROLOGICAL: Gross neurological examination did not reveal any focal deficits. SKIN: No rashes. - Labs CBC & Chem 7: 02/05/21 06:25 02/05/21 06:25 Labs: Abnormal Lab Results - Last 24 Hours (Table) 02/04/21 02/04/21 02/05/21 Range/Units 16:59 20:54 06:06 RBC (4.30-5.90) m/uL Plt Count (150-450) k/uL Lymphocytes # (1.0-4.8) k/uL Chloride (98-107) mmol/L Carbon Dioxide (22-30) mmol/L BUN (9-20) mg/dL Glucose (74-99) mg/dL POC Glucose (mg/dL) 182 H 140 H 159 H (75-99) mg/dL 02/05/21 02/05/21 02/05/21 Range/Units 06:25 06:25 12:03 RBC 4.20 L (4.30-5.90) m/uL Plt Count 115 L (150-450) k/uL Lymphocytes # 0.8 L (1.0-4.8) k/uL Chloride 94 L (98-107) mmol/L Carbon Dioxide 39 H (22-30) mmol/L BUN 46 H (9-20) mg/dL Glucose 144 H (74-99) mg/dL POC Glucose (mg/dL) 162 H (75-99) mg/dL Microbiology - Last 24 Hours (Table) 02/03/21 10:59 Blood Culture - Preliminary Blood No Growth after 48 hours 01/31/21 21:55 Blood Culture - Preliminary Blood No Growth after 96 hours Assessment and Plan Assessment: ASSESSMENT Episode of unresponsiveness Possible TIA - transient right facial droop Syncopal episode Acute hypoxic respiratory failure- due to CHF exacerbation Acute on chronic systolic heart failure Moderate to severe pulmonary hypertension Right-sided pleural effusion Chronic atrial fibrillation Hypertension Hyperlipidemia Type 2 diabetes mellitus Mild thrombocytopenia Biventricular pacemaker in place PLAN : Patient had extensive work-up done for stroke by neurology. His anticoagulation with Eliquis was on hold for possible thoracentesis. Patient had a chest ultrasound done today showing right pleural effusion pocket size 7.2 cm and left pleural effusion pocket size 0. Pulmonary Dr. Kelly to hold off on thoracentesis due to minimal effusion, so he was restarted on his anticoagul ation. Patient has a biventricular pacemaker, it was interrogated yesterday, cardiology Dr. Duran on board and following the patient. Tilt table test could not be done as the patient was unable to stand up. We Will change his IV Lasix to by mouth Lasix today. Continue with the current medication regimen. Overall prognosis is guarded. Further recommendations to follow depending on the progress of the patient. Patient will need 24 x 7 care, so we will consult clinical social work therapist for possible placement.
--- NOTE | 2021-02-05 14:03 | P.PN ---
Subjective Progress Note Date: 02/05/21 Patient was seen for a follow-up. Patient was initially seen by Dr. Jameson Hernandez. Please refer to his note for details. Patient denies headache. Offers no complaints. Denies any numbness or tingling. No chest pain. Objective - Vital Signs Vital signs: Vital Signs Temp 98.6 F 02/05/21 11:16 Pulse 60 02/05/21 11:16 Resp 20 02/05/21 11:16 BP 135/73 02/05/21 11:16 Pulse Ox 90 L 02/05/21 11:16 Intake & Output 02/04/21 02/05/21 02/05/21 18:59 06:59 18:59 Intake Total 960 250 560 Output Total 450 1100 Balance 510 -850 560 Weight 59 kg Intake: IV 10 Invasive Line 2 10 Oral 960 240 560 Output: Urine 450 1100 Other: Voiding Method Urinal Urinal Diaper Incontinent # Voids 1 - Exam On examination patient is alert and awake. He knows it is January and the year is '". He states that he is in [facility]. Speech is mild to moderately dysarthric. On cranial examination pupils are round and reacting, visual mak are full on confrontation. Extraocular muscles are intact with no nystagmus. Facial sensation is normal. No facial weakness. Hearing is moderately decreased bilaterally. Tongue protrudes to the midline. Facial sensation normal. On muscle strength testing there is no pronator drift and the strength is normal in arms and legs. Reflexes are diminished but equal. Plantars are downgoing. Sensations to touch is equal. - Labs CBC & Chem 7: 02/05/21 06:25 02/05/21 06:25 Labs: Abnormal Lab Results - Last 24 Hours (Table) 02/04/21 02/04/21 02/05/21 Range/Units 16:59 20:54 06:06 RBC (4.30-5.90) m/uL Plt Count (150-450) k/uL Lymphocytes # (1.0-4.8) k/uL Chloride (98-107) mmol/L Carbon Dioxide (22-30) mmol/L BUN (9-20) mg/dL Glucose (74-99) mg/dL POC Glucose (mg/dL) 182 H 140 H 159 H (75-99) mg/dL 02/05/21 02/05/21 02/05/21 Range/Units 06:25 06:25 12:03 RBC 4.20 L (4.30-5.90) m/uL Plt Count 115 L (150-450) k/uL Lymphocytes # 0.8 L (1.0-4.8) k/uL Chloride 94 L (98-107) mmol/L Carbon Dioxide 39 H (22-30) mmol/L BUN 46 H (9-20) mg/dL Glucose 144 H (74-99) mg/dL POC Glucose (mg/dL) 162 H (75-99) mg/dL Microbiology - Last 24 Hours (Table) 02/03/21 10:59 Blood Culture - Preliminary Blood No Growth after 48 hours 01/31/21 21:55 Blood Culture - Preliminary Blood No Growth after 96 hours Assessment and Plan Assessment: * 80-year-old male came with possible syncope, found down on the kitchen floor, unclear cause. * Transient right facial droop, now resolved. Possible TIA especially with background of atrial fibrillation, and other risk factors including CHF, diabetes hypertension. * Pacemaker, rule out arrhythmia * History of CVA with no residual deficits. * CHF * Hypertension * Diabetes * Hard of hearing. Plan: * Patient's EEG on 02/01/2021 is normal. * Pacemaker interrogation revealed no arrhythmia. * Carotid Doppler showed no ICA stenosis. Antegrade flow in both vertebral arteries * 2-D echo showed moderate concentric LVH, left atrium is severely dilated. Mild aortic valve sclerosis. * Tilt table test was attempted yesterday, but patient could not stand up for the test. * Continue Apixaban 2.5 mg twice a day * B12 459 * Hemoglobin A1c 5.9. * Agree with possible placement. * Please reconsult neurology if any other concerns.
--- NOTE | 2021-02-05 15:33 | P.PN ---
Subjective Progress Note Date: 02/05/21 Principal diagnosis: Syncopal episode Acute rhabdomyolysis Acute hypoxic respiratory failure saturation of 90% on 3 L Moderate to large right-sided pleural effusion differential diagnoses likely heart failure less likely related to neoplasm, pneumonia or atelectasis fluid overload History of stroke on direct oral anticoagulants Acute on chronic systolic heart failure related to Cardiomyopathy ejection fraction of 40-45% 02/05/2021, patient seen eval examined care plan discussed, denies any chest pain resting comfortably, oxygen saturation on room air is 90%, BUN/creatinine 46 1.25, diuresing well, 02/04/2021 patient seen and evaluated examined during the rounds labs reviewed medications reviewed care plan discussed with the staff at length, ultrasound of the chest reviewed, left side no effusion is present in the right side is small to moderate pleural effusions present about 7 cm in size with portion of her lung intervening, would recommend conservative care gentle diuresis, will follow closely patient is high risk of complication related to thoracentesis, can resume direct oral anticoagulants 02/03/2021, patient seen eval examined during the rounds overall mental status much better more awake and alert, however remains short of breath, no chest pain is present, patient has been explained about right-sided pleural effusion, patient remains off direct oral anticoagulants in place has been on Lovenox, care plan discussed with RN will reassess the amount of fluid and possible thoracentesis on the right side This is a 80-year-old male seen eval examined patient the came into the hospital after recurrent and repeated fall due to acute rhabdomyolysis, patient does have a history of the stroke in the past have been on direct oral anticoagulant, cob[facility] st x-ray and CAT scan show large right-sided pleural effusion I was asked to evaluate further shortness of breath appears to be related to large pleural effusion and lung compression atelectasis, Review of the data revealed that 80-year-old male who presents to the emergency department after he was found down on his kitchen floor. [id number] is at bedside and helps provide history. States that they last spoke to him at 7 PM yesterday and the patient was his normal self. He lives alone, ambulates unassisted and drives. States that he was found by his son confused at 6 PM this evening. He did have some facial swelling unknown if it was secondary to prolonged down time. Some facial asymmetry noted. No unilateral weakness. 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 Patient is on anticoagulation. He is able to answer questions appropriately on upon arrival. Noted to have some increased respirations. He denies headaches or visual changes. No neck pain. Denies back or flank pain. No chest pain. Denies any pain in his arms or legs. Patient reports that he was in the kitchen attempting to take his medications and this is the last thing he remembers, patient used to smoke heavily in the past but could not recall extent and duration of smoking Objective - Vital Signs Vital signs: Vital Signs Temp 98.6 F 02/05/21 11:16 Pulse 60 02/05/21 11:16 Resp 20 02/05/21 11:16 BP 135/73 02/05/21 11:16 Pulse Ox 90 L 02/05/21 11:16 Intake & Output 02/04/21 02/05/21 02/05/21 18:59 06:59 18:59 Intake Total 960 250 800 Output Total 450 1100 180 Balance 510 -850 620 Weight 59 kg Intake: IV 10 Invasive Line 2 10 Oral 960 240 800 Output: Urine 450 1100 180 Other: Voiding Method Urinal Urinal Diaper Incontinent # Voids 1 1 - Exam - Constitutional General appearance: average body habitus, cooperative, disheveled, mild distress - EENT Eyes: EOMI, PERRLA, poor dentition ENT: normal oropharynx Ears: bilateral: normal - Neck Carotids: bilateral: upstroke normal - Respiratory Respiratory: right: diminished, dullness - Cardiovascular Rhythm: regular Heart sounds: normal: S1, S2 - Gastrointestinal General gastrointestinal: distended, normal bowel sounds - Integumentary Integumentary: normal turgor - Neurologic Neurologic: CNII-XII intact - Musculoskeletal Musculoskeletal: generalized weakness - Psychiatric Psychiatric: A&O x's 3, appropriate affect, intact judgment & insight - Labs CBC & Chem 7: 02/05/21 06:25 02/05/21 06:25 Labs: Abnormal Lab Results - Last 24 Hours (Table) 02/04/21 02/04/21 02/05/21 Range/Units 16:59 20:54 06:06 RBC (4.30-5.90) m/uL Plt Count (150-450) k/uL Lymphocytes # (1.0-4.8) k/uL Chloride (98-107) mmol/L Carbon Dioxide (22-30) mmol/L BUN (9-20) mg/dL Glucose (74-99) mg/dL POC Glucose (mg/dL) 182 H 140 H 159 H (75-99) mg/dL 02/05/21 02/05/21 02/05/21 Range/Units 06:25 06:25 12:03 RBC 4.20 L (4.30-5.90) m/uL Plt Count 115 L (150-450) k/uL Lymphocytes # 0.8 L (1.0-4.8) k/uL Chloride 94 L (98-107) mmol/L Carbon Dioxide 39 H (22-30) mmol/L BUN 46 H (9-20) mg/dL Glucose 144 H (74-99) mg/dL POC Glucose (mg/dL) 162 H (75-99) mg/dL Microbiology - Last 24 Hours (Table) 02/03/21 10:59 Blood Culture - Preliminary Blood No Growth after 48 hours 01/31/21 21:55 Blood Culture - Preliminary Blood No Growth after 96 hours Assessment and Plan Assessment: Syncopal episode Acute rhabdomyolysis Acute hypoxic respiratory failure saturation of 90% on 3 L Small to moderate size right-sided pleural effusion differential diagnoses likely heart failure, History of stroke on direct oral anticoagulants Acute on chronic systolic heart failure related to Cardiomyopathy ejection fraction of 40-45% Plan: Continue gentle diuresis Maximal medical therapy Fall precautions Can resume direct anticoagulant, patient is high risk of complication associated with right thoracentesis Ultrasound of chest bilateral reviewed at length Will hold right thoracentesis and reassess patient as outpatient Continue supportive care, further recommendations pending plan of care as per clinical response of the patient Time with Patient: Greater than 30
[2021-02-05 16:33] LABS: Glucose,Whole Blood 231 mg/dL (75-99)
[2021-02-05] MEDS: FUROSEMIDE 20 MG TAB PO SCH (17:33)
[2021-02-05 20:02] LABS: Glucose,Whole Blood 146 mg/dL (75-99)
[2021-02-05] MEDS: ATORVASTATIN 40 MG TAB PO SCH (20:26)
--- NOTE | 2021-02-06 01:09 | PN ---
PROGRESS NOTE DATE OF SERVICE: 02/05/2021 REASON FOR FOLLOWUP: Positive blood culture. INTERVAL HISTORY: Patient is currently afebrile. Patient is breathing comfortably on room air. Denies having any chest pain, shortness of breath or cough. No abdominal pain or diarrhea. PHYSICAL EXAMINATION: Blood pressure 125/72 with a pulse of 60, temperature 97.6. He is 93% on room air. General description is an elderly male lying in bed in no distress. Respiratory system: Unlabored breathing, clear to auscultation anteriorly. Heart S1, S2. Regular rate and rhythm. Abdomen: Soft, no tenderness. LABS: Blood culture repeat on February 03 has been negative so far. White count normal. DIAGNOSTIC IMPRESSION AND PLAN: Patient with a positive blood culture with coagulase negative Staph likely skin contaminant, as the patient has no clinical disease to go along with it and repeat blood cultures have been negative. No need for antibiotic therapy. The patient monitored closely off antibiotics. MMODL / IJN: [id number] /
[2021-02-06 06:20] LABS: Glucose,Whole Blood 134 mg/dL (75-99)
[2021-02-06] MEDS: INSULIN ASPART (NovoLOG) 100 UNIT/ML VIAL SQ SCH ×2 (06:55→12:42)
[2021-02-06] MEDS: FUROSEMIDE 20 MG TAB PO SCH ×2 (09:29→15:47)
[2021-02-06] MEDS: FENOFIBRATE 160 MG TAB PO SCH (09:29)
[2021-02-06] MEDS: APIXABAN 2.5 MG TABLET PO SCH (09:29)
[2021-02-06] MEDS: ISOSORBIDE MONONITRATE ER 60 MG TAB.ER.24H PO SCH (09:30)
[2021-02-06] MEDS: lisinopriL 10 MG TAB PO SCH (09:30)
[2021-02-06] MEDS: METOPROLOL TARTRATE 50 MG TAB PO SCH (09:31)
[2021-02-06] MEDS: SODIUM CHLORIDE 0.9% 1,000 ML IV SCH (09:36)
[2021-02-06 10:25] LABS: Calcium 9.1 mg/dL (8.4-10.2); Potassium 3.4 mmol/L (3.5-5.1)
[2021-02-06] MEDS ORDERED: POTASSIUM CHLORIDE ER 20 MEQ TAB.ER PO STA (10:38)
[2021-02-06 11:47] VITALS: PULSE 60; TEMP 97.4
[2021-02-06 12:04] LABS: Glucose,Whole Blood 274 mg/dL (75-99)
--- NOTE | 2021-02-06 12:19 | P.DS ---
Providers Date of admission: 01/31/21 22:54 Expected date of discharge: 02/06/21 Attending physician: Molly Palacio MD Consults: 01/31/21 22:51 Consult Physician Urgent Consulting Provider: Jameson Hernandez Consult Reason/Comments: found down, syncope vs seizure Do you want consulting provider notified?: Yes 01/31/21 22:52 Consult Physician Urgent Consulting Provider: [facility] Consult Reason/Comments: aechf, nstemi Do you want consulting provider notified?: Yes 02/01/21 14:32 Consult Physician Routine Consulting Provider: Theron Kelly Consult Reason/Comments: Right-sided pleural effusion Do you want consulting provider notified?: Yes 02/01/21 19:43 Consult Physician Urgent Consulting Provider: Matthew Young Consult Reason/Comments: positive cultures Do you want consulting provider notified?: Yes [facility]: Final Diagnosis Episode of unresponsiveness Possible TIA - transient right facial droop Syncopal episode Acute hypoxic respiratory failure- due to CHF exacerbation Acute on chronic systolic heart failure Moderate to severe pulmonary hypertension Right-sided pleural effusion Chronic atrial fibrillation Hypertension Hyperlipidemia Type 2 diabetes mellitus Mild thrombocytopenia Biventricular pacemaker in place Discharge disposition Patient is being discharged in a stable condition with guarded prognosis to [facility] for continued PT/OT therapy. Patient will follow-up with Dr. Stanford in the outpatient setting upon discharge. Patient will also follow-up with pulmonary Dr. Kelly in the outpatient setting. Total time taken is greater than 35 minutes. Hospital course Unresponsive, Fall Mr. Ngoc pelaez an 80-year-old male who lives by himself in an apartment with some assistance was found unresponsive. Patient's family members found him down on the kitchen floor, after they did not hear from him for a day. Patient had stroke work-up done with CT of the head showing cerebral atrophy, CT of the spine showing degenerative disc disease. He had a CT of the chest showing moderate pleural effusion. Patient also had CT angio of the head and neck, carotid artery Doppler, EEG all of which were essentially within normal limits. Neurology cardiology and pulmonary have been closely following the patient. On 02/04/2021 patient was seen and examined at the bedside. He does not appear to be in acute distress. Patient is pleasantly confused but oriented to self. He denied having any chest pain or difficulty in breathing. No cough or fevers. On reviewing his vitals temperature 98.3, heart rate 61, respiratory rate 18, blood pressure 134/78, saturating at 94 on room air. On reviewing his labs white count of 4.2, hemoglobin 14.1, platelets 118. Sodium 138, potassium 3.5, chloride 96, bicarb 37, BUN 39, creatinine 1.07. On review of systems On 02/05/2021 - and is seen and examined at the bedside. He is comfortably lying in bed appears to be no acute distress. As per discussion with nursing staff no acute events reported overnight. Patient is pleasantly confused, review of systems could not be done. On reviewing the vitals temperature of 98.6, heart rate 60, respiratory 20, blood pressure 134 systolic the saturating at 90% on room air. On reviewing his labs hemoglobin is 14, white count of 5.8, platelets 1:15. 02/06/2021 Patient is seen this morning in follow-up with no acute overnight issues. Patient denies any chest pain or palpitations. Currently no reports of chest pain, shortness of breath, or palpitations. Patient is afebrile. No reports of nausea or vomiting and patient is tolerating diet. Patient will be discharged to [facility] today continued PT/OT therapy. Patient will need to follow-up outpatient with his primary care provider along with pulmonary Dr. Kelly in the outpatient setting. Prescription provided for repeat labs to monitor kidney functions and electrolytes. Recommend continuing to monitor Accu-Cheks before meals and at bedtime and treat accordingly with sliding scale. Covid 19 testing was done and was negative. Guarded prognosis. On exam vital signs are stable. Cardio S1, S2 are muffled. Respiratory system shows diminished breath sounds at the bases with no wheezing or rhonchi noted. Abdomen is soft and nontender. Nervous system shows diffuse weakness. Please refer to medication reconciliation sheet for a list of medications. Patient Condition at Discharge: Stable Plan - Discharge Summary New Discharge Prescriptions: New lisinopriL [Zestril] 10 mg PO DAILY tab Atorvastatin [Lipitor] 40 mg PO HS tab INSULIN ASPART (NovoLOG) [NovoLOG (formulary)] 0 unit SQ ACHS vial Continue Metoprolol Tartrate [Lopressor] 100 mg PO BID Fenofibrate Nanocrystallized [Fenofibrate] 145 mg PO DAILY Isosorbide Mononitrate ER [Imdur] 60 mg PO DAILY Apixaban [Eliquis] 2.5 mg PO BID Furosemide [Lasix] 20 mg PO BID PRN PRN Reason: Edema Glimepiride [Amaryl] 1 mg PO BID Ketoconazole 2% Cream [Nizoral 2%] 1 applic TOPICAL DAILY PRN PRN Reason: Rash Ergocalciferol [Vitamin D2 (1250 Mcg = 83014 Iu)] 1,250 mcg PO Q7D Discontinued hydroCHLOROthiazide [Hydrodiuril] 25 mg PO DAILY metFORMIN HCL [Glucophage] 500 mg PO DAILY hydrALAZINE HCL [Apresoline] 100 mg PO BID lisinopriL 20 mg PO BID Discharge Medication List Fenofibrate Nanocrystallized [Fenofibrate] 145 mg PO DAILY 02/16/15 [History] Isosorbide Mononitrate ER [Imdur] 60 mg PO DAILY 02/16/15 [History] Metoprolol Tartrate [Lopressor] 100 mg PO BID 02/16/15 [History] Apixaban [Eliquis] 2.5 mg PO BID 12/03/18 [History] Furosemide [Lasix] 20 mg PO BID PRN 01/18/19 [History] Glimepiride [Amaryl] 1 mg PO BID 02/01/19 [History] Ergocalciferol [Vitamin D2 (1250 Mcg = 84302 Iu)] 1,250 mcg PO Q7D 01/31/21 [History] Ketoconazole 2% Cream [Nizoral 2%] 1 applic TOPICAL DAILY PRN 01/31/21 [History] Atorvastatin [Lipitor] 40 mg PO HS tab 02/06/21 [Rx] INSULIN ASPART (NovoLOG) [NovoLOG (formulary)] 0 unit SQ ACHS vial 02/06/21 [Rx] lisinopriL [Zestril] 10 mg PO DAILY tab 02/06/21 [Rx] Follow up Appointment(s)/Referral(s): Heena Stanford MD [Primary Care Provider] - 1-2 days [facility]idential [facility] [NON-STAFF] - Theron Kelly MD [STAFF PHYSICIAN] - 1 Week Ambulatory/Diagnostic Orders: Basic Metabolic Panel [LAB.AMB] Time Frame: 3 Days, Location: None Selected Activity/Diet/Wound Care/Special Instructions: Patient is going to [facility] Activity as tolerated Continue with consistent carb diet Continue to monitor blood sugars before meals and at bedtime and treat accordingly with sliding scale NovoLog sliding scale 0-150 equals 0 units 151-200 equals 2 units 201-250 equals 4 units 251-300 equals 6 units 301-350 equals 8 units 351-400 equals 10 units Please notify provider if blood sugar is 400 or above Follow-up with pulmonary outpatient Follow-up with primary care provider upon discharge follow up with cardiology outpatient Discharge Disposition: TRANSFER TO SNF/ECF
--- NOTE | 2021-02-06 13:58 | P.PN ---
Subjective Progress Note Date: 02/06/21 Patient was seen for a follow-up. States he is feeling "better". Patient denies headache at this time. Patient states that he has difficulty sitting up from a laying position. No chest pain, abdominal pain. Denies any numbness or tingling. No chest pain. Objective - Vital Signs Vital signs: Vital Signs Temp 97.4 F L 02/06/21 11:46 Pulse 60 02/06/21 11:46 Resp 18 02/06/21 11:46 BP 108/63 02/06/21 11:46 Pulse Ox 96 02/06/21 11:46 Intake & Output 02/05/21 02/06/21 02/06/21 18:59 06:59 18:59 Intake Total 1040 236 Output Total 180 300 425 Balance 860 -300 -189 Weight 60 kg Intake: Oral 1040 236 Output: Urine 180 300 425 Other: Voiding Method Urinal Urinal Urinal Diaper # Voids 1 2 1 - Exam On examination patient is alert and awake. He knows it is January and the year still states is 'Two twenty-". He still states that he is in [facility], in [facility]. He knows name of the current president. Speech is mild to moderately dysarthric. On cranial examination pupils are round and reacting, visual mak are full on confrontation. Extraocular muscles are intact with no nystagmus. Facial sensation is normal. No facial weakness. Hearing is moderately decreased bilaterally. Tongue protrudes to the midline. Facial sensation normal. On muscle strength testing there is no pronator drift and the strength is normal in arms and legs. Reflexes are diminished but equal. Plantars are downgoing. Sensations to touch is equal. - Labs CBC & Chem 7: 02/05/21 06:25 02/06/21 09:01 Labs: Abnormal Lab Results - Last 24 Hours (Table) 02/05/21 02/05/21 02/06/21 Range/Units 16:31 20:00 06:18 Potassium (3.5-5.1) mmol/L Chloride (98-107) mmol/L Carbon Dioxide (22-30) mmol/L BUN (9-20) mg/dL Glucose (74-99) mg/dL POC Glucose (mg/dL) 231 H 146 H 134 H (75-99) mg/dL 02/06/21 02/06/21 Range/Units 09:01 12:03 Potassium 3.4 L (3.5-5.1) mmol/L Chloride 94 L (98-107) mmol/L Carbon Dioxide 36 H (22-30) mmol/L BUN 48 H (9-20) mg/dL Glucose 210 H (74-99) mg/dL POC Glucose (mg/dL) 274 H (75-99) mg/dL Microbiology - Last 24 Hours (Table) 02/03/21 10:59 Blood Culture - Preliminary Blood No Growth after 72 hours 01/31/21 21:55 Blood Culture - Preliminary Blood No Growth after 120 hours Assessment and Plan Assessment: * 80-year-old male came with possible syncope, found down on the kitchen floor, unclear cause. * Transient right facial droop, now resolved. Possible TIA especially with background of atrial fibrillation, and other risk factors including CHF, diabetes hypertension. * Pacemaker, rule out arrhythmia * History of CVA with no residual deficits. * CHF * Hypertension * Diabetes * Hard of hearing. Plan: * Patient's EEG on 02/01/2021 is normal. * Pacemaker interrogation revealed no arrhythmia. * Carotid Doppler showed no ICA stenosis. Antegrade flow in both vertebral arteries * 2-D echo showed moderate concentric LVH, left atrium is severely dilated. Mild aortic valve sclerosis. * Tilt table test was attempted yesterday, but patient could not stand up for the test. * Continue Apixaban 2.5 mg twice a day * B12 459 * Hemoglobin A1c 5.9. * Agree with possible placement. * Neurology will sign off. Please reconsult neurology if any other concerns.
--- NOTE | 2021-02-06 15:24 | P.PN ---
Subjective Progress Note Date: 02/06/21 Principal diagnosis: Syncopal episode Acute rhabdomyolysis Acute hypoxic respiratory failure saturation of 90% on 3 L Moderate to large right-sided pleural effusion differential diagnoses likely heart failure less likely related to neoplasm, pneumonia or atelectasis fluid overload History of stroke on direct oral anticoagulants Acute on chronic systolic heart failure related to Cardiomyopathy ejection fraction of 40-45% 02/06/2021, patient seen eval examined during the rounds labs reviewed medications reviewed care plan discussed, respiratory status continued to improv e, patient on room air oxygen saturation remained stable, agree with discharge planning with follow-up on outpatient basis 02/05/2021, patient seen eval examined care plan discussed, denies any chest pain resting comfortably, oxygen saturation on room air is 90%, BUN/creatinine 46 1.25, diuresing well, 02/04/2021 patient seen and evaluated examined during the rounds labs reviewed medications reviewed care plan discussed with the staff at length, ultrasound of the chest reviewed, left side no effusion is present in the right side is small to moderate pleural effusions present about 7 cm in size with portion of her lung intervening, would recommend conservative care gentle diuresis, will follow closely patient is high risk of complication related to thoracentesis, can resume direct oral anticoagulants 02/03/2021, patient seen eval examined during the rounds overall mental status much better more awake and alert, however remains short of breath, no chest pain is present, patient has been explained about right-sided pleural effusion, patient remains off direct oral anticoagulants in place has been on Lovenox, care plan discussed with RN will reassess the amount of fluid and possible thoracentesis on the right side This is a 80-year-old male seen eval examined patient the came into the hospital after recurrent and repeated fall due to acute rhabdomyolysis, patient does have a history of the stroke in the past have been on direct oral anticoagulant, chest x-ray and CAT scan show large right-sided pleural effusion I was asked to evaluate further shortness of breath appears to be related to large pleural effusion and lung compression atelectasis, Review of the data revealed that 80-year-old male who presents to the emergency department after he was found down on his kitchen floor. [id number] is at bedside and helps provide history. States that they last spoke to him at 7 PM yesterday and the patient was his normal self. He lives alone, ambulates unassisted and drives. States that he was found by his son confused at 6 PM this evening. He did have some facial swelling unknown if it was secondary to prolonged down time. Some facial asymmetry noted. No unilateral weakness. 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 Patient is on anticoagulation. He is able to answer questions appropriately on upon arrival. Noted to have some increased respirations. He denies headaches or visual changes. No neck pain. Denies back or flank pain. No chest pain. Denies any pain in his arms or legs. Patient reports that he was in the kitchen attempting to take his medications and this is the last thing he remembers, patient used to smoke heavily in the past but could not recall extent and duration of smoking Objective - Vital Signs Vital signs: Vital Signs Temp 97.4 F L 02/06/21 11:46 Pulse 60 02/06/21 13:00 Resp 18 02/06/21 13:00 BP 108/63 02/06/21 11:46 Pulse Ox 96 02/06/21 11:46 Intake & Output 02/05/21 02/06/21 02/06/21 18:59 06:59 18:59 Intake Total 1040 236 Output Total 180 300 525 Balance 860 -300 -289 Weight 60 kg Intake: Oral 1040 236 Output: Urine 180 300 525 Other: Voiding Method Urinal Urinal Urinal Diaper # Voids 1 2 1 - Exam - Constitutional General appearance: average body habitus, cooperative, disheveled, mild distress - EENT Eyes: EOMI, PERRLA, poor dentition ENT: normal oropharynx Ears: bilateral: normal - Neck Carotids: bilateral: upstroke normal - Respiratory Respiratory: right: diminished, dullness - Cardiovascular Rhythm: regular Heart sounds: normal: S1, S2 - Gastrointestinal General gastrointestinal: distended, normal bowel sounds - Integumentary Integumentary: normal turgor - Neurologic Neurologic: CNII-XII intact - Musculoskeletal Musculoskeletal: generalized weakness - Psychiatric Psychiatric: A&O x's 3, appropriate affect, intact judgment & insight - Labs CBC & Chem 7: 02/05/21 06:25 02/06/21 09:01 Labs: Abnormal Lab Results - Last 24 Hours (Table) 02/05/21 02/05/21 02/06/21 Range/Units 16:31 20:00 06:18 Potassium (3.5-5.1) mmol/L Chloride (98-107) mmol/L Carbon Dioxide (22-30) mmol/L BUN (9-20) mg/dL Glucose (74-99) mg/dL POC Glucose (mg/dL) 231 H 146 H 134 H (75-99) mg/dL 02/06/21 02/06/21 Range/Units 09:01 12:03 Potassium 3.4 L (3.5-5.1) mmol/L Chloride 94 L (98-107) mmol/L Carbon Dioxide 36 H (22-30) mmol/L BUN 48 H (9-20) mg/dL Glucose 210 H (74-99) mg/dL POC Glucose (mg/dL) 274 H (75-99) mg/dL Microbiology - Last 24 Hours (Table) 02/03/21 10:59 Blood Culture - Preliminary Blood No Growth after 72 hours 01/31/21 21:55 Blood Culture - Preliminary Blood No Growth after 120 hours Assessment and Plan Assessment: Syncopal episode Acute rhabdomyolysis Acute hypoxic respiratory failure saturation of 90% on 3 L Small to moderate size right-sided pleural effusion differential diagnoses likely heart failure, History of stroke on direct oral anticoagulants Acute on chronic systolic heart failure related to Cardiomyopathy ejection fraction of 40-45% Plan: Continue gentle diuresis Maximal medical therapy Fall precautions Can resume direct anticoagulant, patient is high risk of complication associated with right thoracentesis Ultrasound of chest bilateral reviewed at length Will hold right thoracentesis and reassess patient as outpatient Continue supportive care, further recommendations pending plan of care as per clinical response of the patient Time with Patient: Greater than 30
[2021-02-06 15:46] VITALS: BP 126/80; RESP 16
== END 2021-02-06 17:04 | DRG 291 ==
LOC: EC 18:45 → 3SCARD 22:54
PROVIDERS: ADMIT Internal Medicine; ATTEND Internal Medicine
PROC: 4B02XTZ Measurement of Cardiac Defibrillator, External Approach (ICD-10-PCS; principal; 2021-02-04)
DX: I11.0 Hypertensive heart disease with heart failure (principal); J96.01 Acute respiratory failure with hypoxia; I48.19 Other persistent atrial fibrillation; G45.9 Transient cerebral ischemic attack, unspecified; I69.351 Hemiplegia and hemiparesis following cerebral infarction affecting right dominant side; M62.82 Rhabdomyolysis; I42.8 Other cardiomyopathies; I50.23 Acute on chronic systolic (congestive) heart failure; I27.20 Pulmonary hypertension, unspecified; D69.6 Thrombocytopenia, unspecified; E11.9 Type 2 diabetes mellitus without complications; E78.5 Hyperlipidemia, unspecified; H91.90 Unspecified hearing loss, unspecified ear; R79.89 Other specified abnormal findings of blood chemistry; Z20.822 Contact with and (suspected) exposure to COVID-19; I25.10 Atherosclerotic heart disease of native coronary artery without angina pectoris; I45.4 Nonspecific intraventricular block; I69.328 Other speech and language deficits following cerebral infarction; J44.9 Chronic obstructive pulmonary disease, unspecified; Z87.891 Personal history of nicotine dependence; R82.71 Bacteriuria; R29.810 Facial weakness; Z79.01 Long term (current) use of anticoagulants; Z79.4 Long term (current) use of insulin; Z79.899 Other long term (current) drug therapy; Z45.02 Encounter for adjustment and management of automatic implantable cardiac defibrillator; Z53.09 Procedure and treatment not carried out because of other contraindication; Z88.0 Allergy status to penicillin; K13.79 Other lesions of oral mucosa; Z60.2 Problems related to living alone
CPT/HCPCS: 36415; 70450; 70486; 71046; 71275; 72125; 72170; 76604; 80048; 80053; 80061; 80306; 81001; 82550; 82607; 82747; 83605; 83735; 83880; 84443; 84484; 85025; 85027; 85610; 85730; 87040; 87635; 93005; 93306; 93880; 95819; 99285

== ENCOUNTER → 2021-04-08 | Outpatient (CLI) | payer MEDICARE ==
--- NOTE | 2021-04-08 17:07 | XR ---
EXAMINATION TYPE: XR chest 2V DATE OF EXAM: 04/08/2021 COMPARISON: 01/31/2021 HISTORY: Pleural effusion TECHNIQUE: Frontal and lateral views of the chest are obtained. FINDINGS: Right chest wall generator device with stable leads. Heart size is enlarged. Moderate righ t pleural effusion. There are interstitial airspace opacities suggestive of edema. Right basilar airs pace opacity may represent atelectasis or developing pneumonia. No left pleural effusion. No pneumoth orax. Osteopenia and degenerative changes of the thoracic spine. IMPRESSION: 1. Cardiomegaly. Pulmonary interstitial prominence is suggestive of edema. There is a moderate right pleural effusion. Consider congestive heart failure. 2. Right basilar airspace opacity most suggestive of atelectasis or developing pneumonia. 3. Right chest wall generator device.
== END | disposition home or self-care (01) ==
LOC: RADXRMAIN 15:11
PROVIDERS: ATTEND Internal Medicine Sleep Medicine
DX: I51.7 Cardiomegaly (principal); J90 Pleural effusion, not elsewhere classified; R91.8 Other nonspecific abnormal finding of lung field; Z96.89 Presence of other specified functional implants
CPT/HCPCS: 71046

== ENCOUNTER → 2021-05-07 | Outpatient (CLI) | payer MEDICARE ==
--- NOTE | 2021-05-07 12:35 | XR ---
EXAMINATION TYPE: XR chest 2V DATE OF EXAM: 05/07/2021 COMPARISON: 04/08/2021 HISTORY: Follow-up pleural effusion TECHNIQUE: Frontal and lateral views of the chest are obtained. FINDINGS: Right basilar pleural-parenchymal disease appears similar to the prior exam. Left lung is grossly jez ar. Cardiac silhouette is unchanged with pacer. IMPRESSION: No significant change since the prior exam.
[2021-05-08 00:40] LABS: African American GFR (CKD) 45.8 (60.0-200.0); Albumin 4.3 g/dL (3.80-4.90); Albumin/Globulin Ratio 1.59 (1.60-3.17); Anion Gap 7.2 mmol/L (4.00-12.00); BUN/Creat Ratio 23.75 Ratio (12.00-20.00); Carbon Dioxide 29.8 mmol/L (21.6-31.8); Globulin 2.7 g/dL (1.6-3.3); Non-African American GFR(CKD) 39.5 (60.0-200.0); Potassium 4.5 mmol/L (3.5-5.5)
== END | disposition home or self-care (01) ==
LOC: LABWHC1 11:48
PROVIDERS: ATTEND Internal Medicine Sleep Medicine
DX: J90 Pleural effusion, not elsewhere classified (principal); I42.8 Other cardiomyopathies
CPT/HCPCS: 36415; 71046; 80053

== ENCOUNTER → 2021-05-27 | Outpatient (CLI) | payer MEDICARE ==
[2021-05-27 13:42] LABS: Appearance,Urine Clear (Clear); Bilirubin,Urine Negative (Negative); Blood,Urine Negative (Negative); Color,Urine Yellow; Glucose,Urine (UA) Negative (Negative); Ketones,Urine Negative (Negative); Leukocyte Esterase,Urine Moderate (Negative); Mucus,Urine Rare /hpf; Nitrite,Urine Negative (Negative); PH, Urine 6.5 (5.0-8.0); Protein,Urine Trace (Negative); Specific Gravity,Urine 1.015 (1.001-1.035); Squamous Epithelial Cell,Urine <1 /hpf (0-4); Urobilinogen,Urine <2.0 mg/dL (<2.0); WBC,Urine 14 /hpf (0-5)
[2021-05-27 14:14] LABS: Creatinine,Urine Random 83.7 mg/dL; Protein/Creatinine Ratio,Urine 0.251
[2021-05-27 18:29] LABS: Basophils # (A) 0.03 X 10*3/uL (0.00-0.10); Basophils % (A) 0.5 %; Eosinophils # (A) 0.13 X 10*3/uL (0.04-0.35); Eosinophils % (A) 2.2 %; HCT 45.4 % (39.6-50.0); HGB 14.3 g/dL (13.0-17.0); Lymphocytes # (A) 1.51 X 10*3/uL (0.90-5.00); Lymphocytes % (A) 26.1 %; MCH 31.6 pg (27.0-32.0); MCHC 31.5 g/dL (32.0-37.0); MCV 100.4 fL (80.0-97.0); Mean Platelet Volume 12.5 fL (9.5-12.2); Monocytes # (A) 0.92 X 10*3/uL (0.20-1.00); Monocytes % (A) 15.9 %; Neutrophils # (A) 3.17 X 10*3/uL (1.80-7.70); Platelet Count 131 X 10*3/uL (140-440); RBC 4.52 X 10*6/uL (4.40-5.60); RDW 14.1 % (11.5-14.5); WBC 5.78 X 10*3/uL (4.50-10.00)
[2021-05-27 19:05] LABS: % Iron Saturation 31.47 (15.00-50.00); African American GFR (CKD) 45.8 (60.0-200.0); Albumin 4.2 g/dL (3.80-4.90); Anion Gap 4.1 mmol/L (4.00-12.00); BUN/Creat Ratio 24.38 Ratio (12.00-20.00); Carbon Dioxide 31.9 mmol/L (21.6-31.8); Magnesium 1.8 mg/dL (1.5-2.4); Non-African American GFR(CKD) 39.5 (60.0-200.0); Potassium 4.5 mmol/L (3.5-5.5); Uric Acid 5.4 mg/dL (3.7-8.7)
[2021-05-27 19:13] LABS: Ferritin 149.3 ng/mL (22.0-322.0)
== END | disposition home or self-care (01) ==
LOC: LABWHC1 12:33
PROVIDERS: ATTEND Nurse Practitioner Family
DX: N18.31 Chronic kidney disease, stage 3a (principal); N25.81 Secondary hyperparathyroidism of renal origin; M10.9 Gout, unspecified; N39.0 Urinary tract infection, site not specified; D64.9 Anemia, unspecified; R80.9 Proteinuria, unspecified; E55.9 Vitamin D deficiency, unspecified
CPT/HCPCS: 36415; 80048; 81001; 82040; 82306; 82570; 82728; 83540; 83550; 83735; 83970; 84100; 84156; 84550; 85025

== ENCOUNTER → 2021-07-11 | Outpatient (CLI) | payer MEDICARE ==
[2021-07-11 20:22] LABS: African American GFR (CKD) 49.5 (60.0-200.0); Anion Gap 8.3 mmol/L (4.00-12.00); Carbon Dioxide 29.7 mmol/L (21.6-31.8); Non-African American GFR(CKD) 42.7 (60.0-200.0); Potassium 4.4 mmol/L (3.5-5.5)
== END | disposition home or self-care (01) ==
LOC: LABWHC1 15:08
PROVIDERS: ATTEND Nurse Practitioner Family
DX: N18.31 Chronic kidney disease, stage 3a (principal)
CPT/HCPCS: 36415; 80048

== ENCOUNTER 2022-05-05 17:42 | Inpatient (IN) | payer MEDICARE ==
[2022-05-05] MEDS ORDERED: SODIUM CHLORIDE 0.9% 1,000 ML IV ONE (18:04)
--- NOTE | 2022-05-05 18:11 | ED ---
General Adult HPI - General Chief complaint: Fall Stated complaint: Fall Time Seen by Provider: 05/05/22 17:55 Source: patient, EMS, RN notes reviewed, old records reviewed Mode of arrival: EMS Limitations: no limitations - History of Present Illness Initial comments: This is an 82-year-old male who was last seen by family at 6:30 PM last night when someone came to check on today about 5:00 patient was found on the ground. Patient stated he fell last night and vomited on ever since. According to the family member the patient appeared to be trying to get in or out of his pajamas and had been on the ground. Patient had no complaint of pain. Patient denies hitting his head or neck. Patient denies any chest pain palpitations difficulty breathing shortness of breath per patient had any back pain. Patient denied any abdominal pain. Patient any extremity pain. Patient did have a superficial abrasion to the right shoulder palpation and full range of motion of all his extremities. - Related Data Home Medications Medication Instructions Recorded Confirmed Fenofibrate Nanocrystallized 145 mg PO HS 02/16/15 05/05/22 [Fenofibrate] Isosorbide Mononitrate ER [Imdur] 60 mg PO DAILY 02/16/15 05/05/22 Metoprolol Tartrate [Lopressor] 100 mg PO BID 02/16/15 05/05/22 Apixaban [Eliquis] 2.5 mg PO BID 12/03/18 05/05/22 Furosemide [Lasix] 20 mg PO DAILY 01/18/19 05/05/22 Glimepiride [Amaryl] 2 mg PO BID 02/01/19 05/05/22 Ketoconazole 2% Cream [Nizoral 2%] 1 applic TOPICAL DAILY 05/05/22 05/05/22 lisinopriL [Zestril] 20 mg PO DAILY 05/05/22 05/05/22 Allergies Allergy/AdvReac Type Severity Reaction Status Date / Time Penicillins AdvReac Unknown Verified 05/05/22 20:22 Review of Systems ROS Statement: Those systems with pertinent positive or pertinent negative responses have been documented in the HPI. ROS Other: All systems not noted in ROS Statement are negative. Past Medical History Past Medical History: Heart Failure, Hypertension History of Any Multi-Drug Resistant Organisms: None Reported Past Surgical History: Orthopedic Surgery, Pacemaker Additional Past Surgical History / Comment(s): colonoscopy. repair lt toe Past Anesthesia/Blood Transfusion Reactions: No Reported Reaction Date of Last Stent Placement:: 2005 Type of Cardiac Device: Biventricular Pacemaker, Permanent Pacemaker Device Placement Date:: 02-01-2019 Past Psychological History: No Psychological Hx Reported Smoking Status: Former smoker Past Alcohol Use History: None Reported Past Drug Use History: None Reported - Past Family History Mother Family Medical History: No Reported History Brother(s) Family Medical History: Memory Impairment Additional Family Medical History / Comment(s): youngest brother passed at 66 in 2020 from a [place] General Exam - General Exam Comments Initial Comments: GENERAL: Patient is well-developed and well-nourished. Patient is nontoxic and well- hydrated and is in no acute distress. ENT: Neck is soft and supple. No significant lymphadenopathy is noted. Oropharynx is clear. Moist mucous membranes. Neck has full range of motion without eliciting any pain. EYES: The sclera were anicteric and conjunctiva were pink and moist. Extraocular movements were intact and pupils were equal round and reactive to light. Eyelids were unremarkable. PULMONARY: Unlabored respirations. Good breath sounds bilaterally. No audible rales rhonchi or wheezing was noted. CARDIOVASCULAR: There is a regular rate and rhythm without any murmurs gallops or rubs. ABDOMEN: Soft and nontender with normal bowel sounds. SKIN: Patient has a large superficial abrasion to the right shoulder. Patient also has a large blister on the anterior lower leg on the left and a area on the rig ht that looks like it was a blister and has ruptured. NEUROLOGIC Patient is alert and oriented x3. Cranial nerves II through XII are grossly intact. Motor and sensory are also intact. Normal speech, volume and content. Symmetrical smile. MUSCULOSKELETAL: Normal extremities with adequate strength and full range of motion. LYMPHATICS: No significant lymphadenopathy is noted PSYCHIATRIC: Normal psychiatric evaluation. Limitations: no limitations Course Vital Signs 05/05/22 05/05/22 17:52 20:00 Temperature 96.6 F L Pulse Rate 67 60 Respiratory 18 22 Rate Blood Pressure 110/87 157/92 O2 Sat by Pulse 88 L 96 Oximetry Medical Decision Making - Medical Decision Making EKG shows a paced rhythm at 60 bpm QRS is 151 Q-T intervals 446 QTC is 447. Patient's EKG has quite a bit of noise but the patient is trembling in the room. Chest x-ray shows a large pleural effusion on the right and some mild pulmonary edema. X-ray of the hand shows no acute abnormality. CT of the brain and C-spine showed no acute normalities. - Lab Data Result diagrams: 05/05/22 18:36 05/05/22 18:36 Lab Results 05/05/22 05/05/22 Range/Units 18:36 18:36 WBC 8.3 (3.8-10.6) k/uL RBC 4.10 L (4.30-5.90) m/uL Hgb 13.8 (13.0-17.5) gm/dL Hct 43.4 (39.0-53.0) % MCV 105.8 H (80.0-100.0) fL MCH 33.6 (25.0-35.0) pg MCHC 31.8 (31.0-37.0) g/dL RDW 15.3 (11.5-15.5) % Plt Count 105 L (150-450) k/uL MPV 9.5 Neutrophils % 89 % Lymphocytes % 3 % Monocytes % 6 % Eosinophils % 1 % Basophils % 1 % Neutrophils # 7.4 (1.3-7.7) k/uL Lymphocytes # 0.2 L (1.0-4.8) k/uL Monocytes # 0.5 (0-1.0) k/uL Eosinophils # 0.0 (0-0.7) k/uL Basophils # 0.1 (0-0.2) k/uL Hypochromasia Slight Macrocytosis Moderate Sodium 141 (137-145) mmol/L Potassium 4.2 (3.5-5.1) mmol/L Chloride 104 (98-107) mmol/L Carbon Dioxide 28 (22-30) mmol/L Anion Gap 9 mmol/L BUN 40 H (9-20) mg/dL Creatinine 1.02 (0.66-1.25) mg/dL Est GFR (CKD-EPI)AfAm 78 (>60 ml/min/1.73 sqM) Est GFR (CKD-EPI)NonAf 68 (>60 ml/min/1.73 sqM) Glucose 158 H (74-99) mg/dL Calcium 8.6 (8.4-10.2) mg/dL Total Bilirubin 2.8 H (0.2-1.3) mg/dL AST 55 (17-59) U/L ALT 22 (4-49) U/L Alkaline Phosphatase 36 L (38-126) U/L Creatine Kinase 869 H (55-170) U/L Total Protein 6.2 L (6.3-8.2) g/dL Albumin 3.5 (3.5-5.0) g/dL Disposition Clinical Impression: Fall, Syncope, Rhabdomyolysis, Abrasions of multiple sites, Dehydration, Acute pulmonary edema, Pleural effusion Disposition: ADMITTED IP TO THIS HOSP Referrals: None,Stated [Primary Care Provider] - 1-2 days Time of Disposition: 20:14
[2022-05-05 18:44] LABS: Basophils # (A) 0.1 k/uL (0-0.2); Basophils % (A) 1 %; Eosinophils % (A) 1 %; HCT 43.4 % (39.0-53.0); HGB 13.8 gm/dL (13.0-17.5); Hypochromasia Slight; Lymphocytes # (A) 0.2 k/uL (1.0-4.8); Lymphocytes % (A) 3 %; MCH 33.6 pg (25.0-35.0); MCHC 31.8 g/dL (31.0-37.0); MCV 105.8 fL (80.0-100.0); Macrocytosis Moderate; Mean Platelet Volume 9.5; Monocytes # (A) 0.5 k/uL (0-1.0); Monocytes % (A) 6 %; Neutrophils # (A) 7.4 k/uL (1.3-7.7); Neutrophils % (A) 89 %; Platelet Count 105 k/uL (150-450); RDW 15.3 % (11.5-15.5); WBC 8.3 k/uL (3.8-10.6)
[2022-05-05 18:55] LABS: Albumin 3.5 g/dL (3.5-5.0); Calcium 8.6 mg/dL (8.4-10.2); Potassium 4.2 mmol/L (3.5-5.1); Total Bilirubin 2.8 mg/dL (0.2-1.3); Total Protein 6.2 g/dL (6.3-8.2)
--- NOTE | 2022-05-05 19:48 | XR ---
EXAMINATION TYPE: XR hand complete RT DATE OF EXAM: 05/05/2022 COMPARISON: NONE HISTORY: Pain TECHNIQUE: 3 views FINDINGS: Metacarpals are intact. The carpal bones are intact. There are no erosions. No subluxation. Radiocarpal joint is anatomic. IMPRESSION: No acute abnormality of the right hand. No fracture seen.
--- NOTE | 2022-05-05 19:51 | XR ---
EXAMINATION TYPE: XR chest 2V DATE OF EXAM: 05/05/2022 COMPARISON: 05/07/2021 HISTORY: Pain TECHNIQUE: 2 views FINDINGS: Heart is enlarged. There is moderate right pleural effusion. There is mild pulmonary vascul ar congestion. There is a right axillary pacemaker. The bony thorax appears intact. IMPRESSION: There are some chronic congestive heart failure with increase in the pleural fluid and pu lmonary congestion compared to exam one year ago.
--- NOTE | 2022-05-05 19:53 | CT ---
EXAMINATION TYPE: CT brain angel wo con DATE OF EXAM: 05/05/2022 COMPARISON: CT brain 02/03/2021 HISTORY: AMS CT DLP: 1315.3 mGycm Automated exposure control for dose reduction was used. There is cerebral cortical atrophy. There is no mass effect or midline shift. No sign of intracranial hemorrhage. There is some mild hypodensity in the periventricular white matter. Calvarium is intact. The cervical vertebra have normal alignment. Disc spaces are fairly normal for age. Posterior element s are intact. No compression fracture. Minor spurring seen in the facet joints. Prevertebral soft tis sues are intact. IMPRESSION: Cervical spine appears fairly normal for age. No fracture. Cerebral atrophy and chronic small vessel ischemia. Mild hydrocephalus. No change compared to old exa m.
[2022-05-05] MEDS ORDERED: SODIUM CHLORIDE 0.9% 1,000 ML IV SCH (20:30)
[2022-05-05] MEDS: FUROSEMIDE 10 MG/ML 2 ML VIAL IV SCH (22:02)
--- NOTE | 2022-05-06 02:36 | P.HPIM ---
History of Present Illness H&P Date: 05/05/22 The patient is an 82-year-old male with a PMH of systolic CHF EF 40-45% on echocardiogram 02/03, A. fib status post biventricular AICD on Eliquis, hypertension, chronic kidney disease, hyperlipidemia, history of CVA, hearing loss, and type II DM who was brought into the emergency room by family members after he was found on the floor of his home. History obtained by the [id number] at the bedside. She notes that the family initially noted that the patient appeared somewhat not like himself on 05/04. He appeared to be more tired than usual but told the family members that he had slept wrong. They dropped him off at his home at 6 PM that night, and when they went in to check in on him at 5 PM, they found the patient on the ground. The patient states that he may have tripped on his walker and fell to the ground the night prior and was there all night. She reported feeling okay at the time of interview and denied any active complaints. He denied loss of consciousness, chest pain, s hortness of breath, nausea, vomiting. Head and cervical spine CT in the emergency room revealed no acute abnormalities with EKG showing V paced rhythm at 60 bpm. Hand x-ray was unremarkable with chest x-ray showing some congestive heart failure with a moderate right-sided pleural effusion. Laboratory evaluation was remarkable for creatinine kinase 869, total bilirubin 2.8, BUN 40, creatinine 1.02, and platelet count 105. Review of systems: Pertinent positives and negatives as discussed in HPI, a complete review of systems was performed and all other systems are negative. Physical examination: General: non toxic, no distress, appears at stated age, normal weight Derm: 2 large bullae over the anterior aspect of mid martinez, warm Head: atraumatic, normocephalic, symmetric Eyes: EOMI, no lid lag, anicteric sclera, pupils equal round reactive to light ENT: Nose and ears atraumatic Neck: No cervical lymphadenopathy, trachea midline, supple Mouth: no lip lesion, mucus membranes moist Cardiovascular: S1S2 reg, no murmur, positive dorsalis pedis pulse bilateral, no edema Lungs: Somewhat diminished breath sounds at the right lung base, no wheezing appreciated, no accessory muscle use Abdominal: soft, nontender to palpation, no guarding Ext: muscle strength 3 out of 5 in all 4 extremities grossly, no gross muscle atrophy, no contractures, Neuro: CN II-XI grossly intact, no gross focal neuro deficits Psych: Alert, believes he is in [facility], not oriented to time, only oriented to self Assessment/plan Rhabdomyolysis -Judicious use of IV fluids in setting of significant CHF history -Monitor CK Fall and debility -PT consult Increasing right-sided pleural effusion -Pulmonary consult for possible drainage Thrombocytopenia -Similar to baseline Chronic conditions: A. fib, hypertension, hyperlipidemia, history of CVA, type II DM -Continue with home meds -Insulin sliding scale and blood glucose monitoring DVT prophylaxis -Eliquis The patient is admitted with an anticipated greater than 2 midnight stay for evaluation of rhabdomyolysis CODE STATUS: Full Code Discussed with: Patient, [id number] Anticipated discharge date: 05/[address]: [facility] Past Medical History Past Medical History: Heart Failure, Hypertension History of Any Multi-Drug Resistant Organisms: None Reported Past Surgical History: Orthopedic Surgery, Pacemaker Additional Past Surgical History / Comment(s): colonoscopy. repair lt toe Past Anesthesia/Blood Transfusion Reactions: No Reported Reaction Date of Last Stent Placement:: 2005 Type of Cardiac Device: Biventricular Pacemaker, Permanent Pacemaker Device Placement Date:: 02-01-2019 Past Psychological History: No Psychological Hx Reported Smoking Status: Former smoker Past Alcohol Use History: None Reported Past Drug Use History: None Reported - Past Family History Mother Family Medical History: No Reported History Brother(s) Family Medical History: Memory Impairment Additional Family Medical History / Comment(s): youngest brother passed at 66 in 2020 from a [place] Medications and Allergies Home Medications Medication Instructions Recorded Confirmed Type Fenofibrate Nanocrystallized 145 mg PO HS 02/16/15 05/05/22 History [Fenofibrate] Isosorbide Mononitrate ER [Imdur] 60 mg PO DAILY 02/16/15 05/05/22 History Metoprolol Tartrate [Lopressor] 100 mg PO BID 02/16/15 05/05/22 History Apixaban [Eliquis] 2.5 mg PO BID 12/03/18 05/05/22 History Furosemide [Lasix] 20 mg PO DAILY 01/18/19 05/05/22 History Glimepiride [Amaryl] 2 mg PO BID 02/01/19 05/05/22 History Ketoconazole 2% Cream [Nizoral 2%] 1 applic TOPICAL DAILY 05/05/22 05/05/22 History lisinopriL [Zestril] 20 mg PO DAILY 05/05/22 05/05/22 History Allergies Allergy/AdvReac Type Severity Reaction Status Date / Time Penicillins AdvReac Unknown Verified 05/05/22 20:22 Physical Exam Vitals: Vital Signs Temp Pulse Resp BP Pulse Ox 05/05/22 22:00 60 18 154/67 96 05/05/22 20:00 60 22 157/92 96 05/05/22 17:52 96.6 F L 67 18 110/87 88 L Intake and Output 05/05/22 05/05/22 05/06/22 14:59 22:59 06:59 Other: Weight 66.678 kg Results CBC & Chem 7: 05/05/22 18:36 05/05/22 18:36 Labs: Abnormal Lab Results - Last 24 Hours (Table) 05/05/22 05/05/22 Range/Units 18:36 18:36 RBC 4.10 L (4.30-5.90) m/uL MCV 105.8 H (80.0-100.0) fL Plt Count 105 L (150-450) k/uL Lymphocytes # 0.2 L (1.0-4.8) k/uL BUN 40 H (9-20) mg/dL Glucose 158 H (74-99) mg/dL Total Bilirubin 2.8 H (0.2-1.3) mg/dL Alkaline Phosphatase 36 L (38-126) U/L Creatine Kinase 869 H (55-170) U/L Total Protein 6.2 L (6.3-8.2) g/dL
[2022-05-06 07:19] LABS: Glucose,Whole Blood 50 mg/dL (70-110)
[2022-05-06 07:19] LABS: Glucose,Whole Blood 54 mg/dL (70-110)
[2022-05-06] MEDS: INSULIN ASPART (NovoLOG) 100 UNIT/ML VIAL SQ SCH ×4 (07:36→21:21)
[2022-05-06 07:51] LABS: Glucose,Whole Blood 62 mg/dL (70-110)
[2022-05-06] MEDS: FUROSEMIDE 10 MG/ML 2 ML VIAL IV SCH (07:53)
[2022-05-06] MEDS: lisinopriL 20 MG TAB PO SCH (07:54)
[2022-05-06] MEDS: ISOSORBIDE MONONITRATE ER 60 MG TAB.ER.24H PO SCH (07:54)
[2022-05-06] MEDS: METOPROLOL TARTRATE 50 MG TAB PO SCH ×3 (07:54→21:17)
[2022-05-06 08:20] LABS: Glucose,Whole Blood 128 mg/dL (70-110)
[2022-05-06] MEDS ORDERED: APIXABAN 2.5 MG TABLET PO SCH ×2 (09:00→21:00)
--- NOTE | 2022-05-06 09:20 | P.CNPUL ---
History of Present Illness Consult date: 05/06/22 Reason for consult: dyspnea, hypoxemia, pleural effusion Chief complaint: Shortness of breath History of present illness: Patient is a pleasant 82-year-old male well-known to me, patient has chronic systolic heart failure with baseline ejection fraction of the 40%. Family found the patient on the floor and brought him into the hospital he was breathing spontaneously but however was confused more tired than baseline and appears that he was in the floor may be around less than 1 hour patient brought into the hospital for further evaluation on specific questioning there is no history of seizure-like episode loss of consciousness dizziness lightheadedness patient does have mild shortness of breath more than baseline denies any cough or sputum production denies any fever or chills. His other active medical problems include chronic atrial fibrillation on the low-dose Eliquis, dyslipidemia, chronic kidney disease, hypertension hypertensive cardiovascular disease, CVA, chronic hearing loss, type 2 diabetes mellitus In emergency department patient was noted to have a moderate right pleural effusion on her chest x-ray with right-sided pacemaker other significant labs include BUN/creatinine of 40/1.0 to platelet count of 105, and CK is 869, labs are not done today glucose however was 62 him up to 128's total bilirubin is 2.8. Chest x-ray finding as noted above, effusion and interstitial edema appears to be more compared to prior x-ray. X-ray of the hand no fracture seen, C-spine computed tomography scan stable no fracture identified with chronic degenerative joint disease Review of Systems All systems: negative Past Medical History Past Medical History: Heart Failure, Hypertension History of Any Multi-Drug Resistant Organisms: None Reported Past Surgical History: Orthopedic Surgery, Pacemaker Additional Past Surgical History / Comment(s): colonoscopy. repair lt toe Past Anesthesia/Blood Transfusion Reactions: No Reported Reaction Date of Last Stent Placement:: 2005 Type of Cardiac Device: Biventricular Pacemaker, Permanent Pacemaker Device Placement Date:: 02-01-2019 Past Psychological History: No Psychological Hx Reported Smoking Status: Former smoker Past Alcohol Use History: None Reported Past Drug Use History: None Reported - Past Family History Mother Family Medical History: No Reported History Brother(s) Family Medical History: Memory Impairment Additional Family Medical History / Comment(s): youngest brother passed at 66 in 2020 from a [place] Medications and Allergies Home Medications Medication Instructions Recorded Confirmed Type Fenofibrate Nanocrystallized 145 mg PO HS 04/03/15 06/20/22 History [Fenofibrate] Isosorbide Mononitrate ER [Imdur] 60 mg PO DAILY 02/16/15 05/05/22 History Metoprolol Tartrate [Lopressor] 100 mg PO BID 02/16/15 05/05/22 History Apixaban [Eliquis] 2.5 mg PO BID 12/03/18 05/05/22 History Furosemide [Lasix] 20 mg PO DAILY 01/18/19 05/05/22 History Glimepiride [Amaryl] 2 mg PO BID 02/01/19 05/05/22 History Ketoconazole 2% Cream [Nizoral 2%] 1 applic TOPICAL DAILY 05/05/22 05/05/22 History lisinopriL [Zestril] 20 mg PO DAILY 05/05/22 05/05/22 History Allergies Allergy/AdvReac Type Severity Reaction Status Date / Time Penicillins AdvReac Unknown Verified 05/05/22 20:22 Physical Exam Vitals: Vital Signs Temp Pulse Pulse Resp BP BP Pulse Ox 05/06/22 07:39 60 18 144/67 96 05/06/22 05:00 97.8 F 60 18 118/66 95 05/05/22 23:56 98.2 F 57 L 18 166/75 91 L 05/05/22 23:50 18 05/05/22 22:00 60 18 154/67 96 05/05/22 20:00 60 22 157/92 96 05/05/22 17:52 96.6 F L 67 18 110/87 88 L Intake and Output 05/05/22 05/06/22 05/06/22 22:59 06:59 14:59 Intake Total 350 172 Output Total 300 Balance 50 172 Intake: Intake, IV Titration 350 Amount Sodium Chloride 0.9% 1, 350 000 ml @ 50 mls/hr IV . Q20H [facility] Rx#:[id number] Oral 0 172 Output: Urine 300 Other: Voiding Method Indwelling Catheter Weight 66.678 kg - Constitutional General appearance: average body habitus, cooperative, disheveled, mild distress - EENT Eyes: EOMI, PERRLA ENT: normal oropharynx Ears: bilateral: normal - Neck Carotids: bilateral: upstroke normal Thyroid: negative: normal size - Respiratory Respiratory: right: diminished, dullness, bilateral: rales - Cardiovascular Rhythm: regular Heart sounds: normal: S1, S2 - Gastrointestinal General gastrointestinal: soft - Integumentary Integumentary: normal, normal turgor - Neurologic Neurologic: CNII-XII intact - Musculoskeletal Musculoskeletal: generalized weakness, strength equal bilaterally - Psychiatric Psychiatric: A&O x's 3, appropriate affect, intact judgment & insight Results - Laboratory Findings CBC and BMP: 05/05/22 18:36 05/05/22 18:36 Abnormal lab findings: Abnormal Labs 05/05/22 05/05/22 05/06/22 18:36 18:36 07:11 RBC 4.10 L MCV 105.8 H Plt Count 105 L Lymphocytes # 0.2 L BUN 40 H Glucose 158 H POC Glucose (mg/dL) 50 L Total Bilirubin 2.8 H Alkaline Phosphatase 36 L Creatine Kinase 869 H Total Protein 6.2 L 05/06/22 05/06/22 05/06/22 07:17 07:31 08:17 RBC MCV Plt Count Lymphocytes # BUN Glucose POC Glucose (mg/dL) 54 L 62 L 128 H Total Bilirubin Alkaline Phosphatase Creatine Kinase Total Protein - Diagnostic Findings Chest x-ray: report reviewed, image reviewed (Finding as noted above) Assessment and Plan Assessment: Acute exacerbation of CHF likely acute on chronic systolic heart failure present on admission Acute on chronic hypoxic respiratory failure on 2 L oxygen present on admission Right-sided pleural effusion moderate size increase from prior x-rays Chronic kidney disease stage III Chronic thrombocytopenia with stable platelets over 100,000 Hypertension hypertensive cardiovascular disease Prior history of CVA Status post fall with elevated CK due to fall Plan: Ultrasound of chest and fluid marking Discussed with the patient will proceed with a right-sided thoracentesis tomorrow Hold [facility] for now Monitor renal function closely Further planning as per clinical response of the patient Time with Patient: Greater than 30
[2022-05-06 09:40] LABS: HCT 38.4 % (39.6-50.0); HGB 12.2 g/dL (13.0-17.0); MCH 32.2 pg (27.0-32.0); MCHC 31.8 g/dL (32.0-37.0); MCV 101.3 fL (80.0-97.0); Mean Platelet Volume 12.8 fL (9.5-12.2); NRBC Per 100 WBC 0 /100 WBCS (0.0-0.0); Platelet Count 90 X 10*3/uL (140-440); RBC 3.79 X 10*6/uL (4.40-5.60); RDW 16.9 % (11.5-14.5); WBC 8.17 X 10*3/uL (4.50-10.00)
[2022-05-06 09:47] LABS: African American GFR (CKD) 80.8 (60.0-200.0); Albumin/Globulin Ratio 1.49 (1.60-3.17); Anion Gap 8.3 mmol/L (10.00-18.00); BUN/Creat Ratio 32.56 Ratio (12.00-20.00); Blood Urea Nitrogen 32.4 mg/dL (9.0-27.0); Calcium 8.4 mg/dL (8.7-10.3); Carbon Dioxide 29.3 mmol/L (20.0-27.5); Non-African American GFR(CKD) 69.7 (60.0-200.0); Potassium 3.8 mmol/L (3.5-5.5); Total Bilirubin 1.8 mg/dL (0.30-1.20)
[2022-05-06] MEDS ORDERED: DEXTROSE 5%-0.9% NACL 1,000 ML IV SCH (10:15)
--- NOTE | 2022-05-06 10:25 | US ---
EXAMINATION TYPE: US chest DATE OF EXAM: 05/06/2022 COMPARISON: CLINICAL HISTORY: marking for thoacentesis. TECHNIQUE: Targeted ultrasound of the posterior lower bilateral hemithoraces EXAM MEASUREMENTS: Right Pleural Effusion pocket size: 4.1 cm Right skin surface to fluid distance: 2.6 cm Left Pleural Effusion pocket size: 2.9 cm Right side marked for possible thoracentesis outside the dept. Left side NOT marked for possible thoracentesis outside the dept. Pulmonologists are able to review the images in the patient?s EMR. IMPRESSIONS: 1. Bilateral pleural effusion.
--- NOTE | 2022-05-06 11:00 | P.CRDCN ---
History of Present Illness History of present illness: HISTORY OF PRESENTING ILLNESS This is a pleasant 82-year-old male past medical history significant for permanent atrial fibrillation on Eliquis, type 2 diabetes, dyslipidemia, hypertension, peripheral vascular disease, nonischemic cardiomyopathy status post BiV AICD, nonobstructive coronary artery disease. He follows in the office with Dr. Reddy. We have been asked to see in consultation for pulmonary edema. Patient presents emergency department yesterday after being found on the ground per family. Patient was checked on at 5PM yesterday by family and was found on the ground, unknown how long patient was lying on the floor. Patient denies any loss of consciousness, possibly tripping on walker, but unclear. Patient denies any chest pain, shortness of breath, lightheadedness or dizziness, nausea, vomiting, diarrhea. No current complaints. DIAGNOSTICS EKG reveals Paced rhythm, his bundle pacing with underlying atrial fibrillation Telemetry tracings indicate paced rhythm with HR 60s Chest xray revealed chronic congestive heart failure Hand x-ray report revealed negative for fracture. Laboratory reviewed, WBC 8.1, hemoglobin 12.2, platelets 90, sodium 145, potassium 3.8, BUN 32, serum creatinine 1.0, AST 45 Current home cardiac medications include Eliquis 2.5 mg twice a day, Lasix 20 mg daily, Imdur 60 mg daily, metoprolol tartrate 100 mg twice a day, lisinopril 20 mg daily Most recent echocardiogram 05/2021 revealed an EF of 18%, moderate mitral regurgitation, mild to moderate aortic regurgitation, moderate tricuspid regurgitation with an RVSP of 53 mmHg Most recent cardiac catheterization 11/2018. Celebrex 1 RCA stenosis, 20% EF, right dominant. REVIEW OF SYSTEMS At the time of my exam: CONSTITUTIONAL: Denies fever or chills. CARDIOVASCULAR: Denies chest pain, shortness of breath, orthopnea, PND or palpitations. RESPIRATORY: Denies cough. GASTROINTESTINAL: Denies abdominal pain, diarrhea, constipation, nausea or vomiting. MUSCULOSKELETAL: Denies myalgias. NEUROLOGIC: Denies numbness, tingling, headacbe or weakness. ENDOCRINE: Denies fatigue, weight change, polydipsia or polyurina. GENITOURINARY: Denies burning, hematuria or urgency with micturation. HEMATOLOGIC: Denies history of anemia or bleeding. PHYSICAL EXAMINATION Blood pressure 144/67, heart rate 60, afebrile, oxygen saturation 96% on 2 L nasal cannula CONSTITUTIONAL: No apparent distress. HEENT: Head is normocephalic. Pupils are equal, round. Sclerae anicteric. Mucous membranes of the mouth are moist. No JVD. No carotid bruit. CHEST EXAMINATION: Lungs are diminished in the bases to auscultation. No chest wall tenderness is noted on palpation or with deep breathing. HEART EXAMINATION: Regular rate and rhythm. S1, S2 heard. Systolic murmur noted at apex ABDOMEN: Soft, nontender. Positive bowel sounds. EXTREMITIES: 2+ peripheral pulses, no lower extremity edema and no calf tenderness. NEUROLOGIC EXAMINATION: Patient is awake, alert and oriented x3. ASSESSMENT Status post fall at home, does not appear to be syncope but unwitnessed, possible mechanical fall Elevated CK Chronic heart failure with reduced ejection fraction Chronic kidney disease Permanent atrial fibrillation on Eliquis Type 2 diabetes Dyslipidemia Hypertension Nonischemic cardiomyopathy status post BiV AICD Nonobstructive coronary artery disease Peripheral vascular disease PLAN From a cardiology perspective, recommend transitioning to PO Lasix Pulmonary consulted and plan for possible thoracentesis Recommend restarting Eliquis when able Continue home cardiac medications Follow up outpatient with Dr. Reddy Nurse practitioner note has been reviewed by physician. Signing provider agrees with the documented findings, assessment, and plan of care. Past Medical History Past Medical History: Heart Failure, Hypertension History of Any Multi-Drug Resistant Organisms: None Reported Past Surgical History: Orthopedic Surgery, Pacemaker Additional Past Surgical History / Comment(s): colonoscopy. repair lt toe Past Anesthesia/Blood Transfusion Reactions: No Reported Reaction Date of Last Stent Placement:: 2005 Type of Cardiac Device: Biventricular Pacemaker, Permanent Pacemaker Device Placement Date:: 02-01-2019 Past Psychological History: No Psychological Hx Reported Smoking Status: Former smoker Past Alcohol Use History: None Reported Past Drug Use History: None Reported - Past Family History Mother Family Medical History: No Reported History Brother(s) Family Medical History: Memory Impairment Additional Family Medical History / Comment(s): youngest brother passed at 66 in 2020 from a [place] Medications and Allergies Home Medications Medication Instructions Recorded Confirmed Type Fenofibrate Nanocrystallized 145 mg PO HS 02/16/15 05/05/22 History [Fenofibrate] Isosorbide Mononitrate ER [Imdur] 60 mg PO DAILY 02/16/15 05/05/22 History Metoprolol Tartrate [Lopressor] 100 mg PO BID 02/16/15 05/05/22 History Apixaban [Eliquis] 2.5 mg PO BID 12/03/18 05/05/22 History Furosemide [Lasix] 20 mg PO DAILY 01/18/19 05/05/22 History Glimepiride [Amaryl] 2 mg PO BID 02/01/19 05/05/22 History Ketoconazole 2% Cream [Nizoral 2%] 1 applic TOPICAL DAILY 05/05/22 05/05/22 History lisinopriL [Zestril] 20 mg PO DAILY 05/05/22 05/05/22 History Allergies Allergy/AdvReac Type Severity Reaction Status Date / Time Penicillins AdvReac Unknown Verified 05/05/22 20:22 Physical Exam Vitals: Vital Signs Temp Pulse Pulse Resp BP BP Pulse Ox 05/06/22 08:00 60 18 05/06/22 07:39 60 18 144/67 96 05/06/22 05:00 97.8 F 60 18 118/66 95 05/05/22 23:56 98.2 F 57 L 18 166/75 91 L 05/05/22 23:50 18 05/05/22 22:00 60 18 154/67 96 05/05/22 20:00 60 22 157/92 96 05/05/22 17:52 96.6 F L 67 18 110/87 88 L Intake and Output 05/05/22 05/06/22 05/06/22 22:59 06:59 14:59 Intake Total 350 172 Output Total 300 Balance 50 172 Intake: Intake, IV Titration 350 Amount Sodium Chloride 0.9% 1, 350 000 ml @ 50 mls/hr IV . Q20H [facility] Rx#:[id number] Oral 0 172 Output: Urine 300 Other: Voiding Method Indwelling Catheter Indwelling Catheter # Bowel Movements 1 Weight 66.678 kg Results 05/06/22 06:04 05/06/22 06:04 Cardiac Enzymes 05/05/22 05/06/22 Range/Units 18:36 06:04 AST 55 45 H (17-59) U/L CBC 05/05/22 05/06/22 Range/Units 18:36 06:04 WBC 8.3 8.17 (3.8-10.6) k/uL RBC 4.10 L 3.79 L (4.30-5.90) m/uL Hgb 13.8 12.2 L (13.0-17.5) gm/dL Hct 43.4 38.4 L (39.0-53.0) % Plt Count 105 L 90 L (150-450) k/uL Comprehensive Metabolic Panel 05/05/22 05/06/22 Range/Units 18:36 06:04 Sodium 141 145 (137-145) mmol/L Potassium 4.2 3.8 (3.5-5.1) mmol/L Chloride 104 108 (98-107) mmol/L Carbon Dioxide 28 29.3 H (22-30) mmol/L BUN 40 H 32.4 H (9-20) mg/dL Creatinine 1.02 1.0 (0.66-1.25) mg/dL Glucose 158 H 69 L (74-99) mg/dL Calcium 8.6 8.4 L (8.4-10.2) mg/dL AST 55 45 H (17-59) U/L ALT 22 15 (4-49) U/L Alkaline Phosphatase 36 L 32 L (38-126) U/L Total Protein 6.2 L 5.0 L (6.3-8.2) g/dL Albumin 3.5 3.0 L (3.5-5.0) g/dL Current Medications Generic Name Dose Route Start Last Admin Trade Name Freq PRN Reason Stop Dose Admin Apixaban 2.5 mg 05/06/22 21:00 Apixaban 2.5 Mg Tablet PO BID [facility] Protocol Furosemide 20 mg 05/07/22 09:00 Furosemide 20 Mg Tab PO DAILY [facility] Dextrose/Sodium Chloride 1,000 mls @ 20 mls/hr 05/06/22 10:15 Dextrose 5%-Ns Iv Soln IV .Q24H [facility] Insulin Aspart 0 unit 05/06/22 07:30 05/06/22 07:36 Insulin Aspart (Novolog) 100 Unit/Ml Vial SQ Not Given ACHS [facility] Protocol Isosorbide Mononitrate 60 mg 05/06/22 09:00 05/06/22 07:54 Isosorbide Mononitrate Er 60 Mg Tab.Er.24h PO 60 mg DAILY [facility] Administration Lisinopril 20 mg 05/06/22 09:00 05/06/22 07:54 Lisinopril 20 Mg Tab PO 20 mg DAILY [facility] Administration Metoprolol Tartrate 100 mg 05/06/22 09:00 05/06/22 07:54 Metoprolol Tartrate 50 Mg Tab PO 100 mg BID ANA Administration Intake and Output 05/05/22 05/06/22 05/06/22 22:59 06:59 14:59 Intake Total 350 172 Output Total 300 Balance 50 172 Intake: Intake, IV Titration 350 Amount Sodium Chloride 0.9% 1, 350 000 ml @ 50 mls/hr IV . Q20H [facility] Rx#:[id number] Oral 0 172 Output: Urine 300 Other: Voiding Method Indwelling Catheter Indwelling Catheter # Bowel Movements 1 Weight 66.678 kg 05/06/22 06:04 05/06/22 06:04
[2022-05-06 12:26] LABS: Glucose,Whole Blood 106 mg/dL (70-110)
--- NOTE | 2022-05-06 12:32 | P.PN ---
Subjective Principal diagnosis: Syncope Patient apparently found on the floor with altered mental status. Patient extensive history of congestive heart failure, A. fib, diabetes, chronic kidney disease. Patient was found to be hypoglycemic this morning. Patient is doing better this morning he is more awake and alert following commands reports no any distress. Reports that he's been feeling hungry. Objective - Vital Signs Vital signs: Vital Signs Temp 97.8 F 05/06/22 05:00 Pulse 60 05/06/22 08:00 Resp 18 05/06/22 08:00 BP 144/67 05/06/22 07:39 Pulse Ox 96 05/06/22 07:39 FiO2 Intake & Output 05/05/22 05/06/22 05/06/22 18:59 06:59 18:59 Intake Total 350 172 Output Total 300 Balance 50 172 Weight 66.678 kg 66.678 kg Intake: Intake, IV Titration 350 Amount Sodium Chloride 0.9% 1, 350 000 ml @ 50 mls/hr IV . Q20H [facility] Rx#:[id number] Oral 0 172 Output: Urine 300 Other: Voiding Method Indwelling Catheter Indwelling Catheter # Bowel Movements 1 - Exam Awake alert following commands, no acute distress Head and neck: Anicteric sclera, extraocular movements intact, no facial asymmetry, oropharyngeal mucosa is moist without any lesions, neck is supple without rigidity, no neck masses or neck vein distention Heart: Regular rhythm and rate, S1, S2; no murmurs rubs or gallops Lungs: Breath sounds present bilateral, no wheezing, rhonchi or crackles, diminished in the right base Abdomen: Bowel sounds present throughout, abdomen is soft, nontender, nondistended, no involuntary guarding, no hernias or organomegaly, no flank tenderness Extremities: 1+ peripheral edema, no cyanosis, warm well perfused with palpable dorsalis pedis pulses bilateral and good capillary refill, without joint swe lling or deformities Neurological: Cranial nerves seems intact, he is moving all 4 extremities no ankle clonus no pathological reflexes no neck rigidity - Labs CBC & Chem 7: 05/06/22 06:04 05/06/22 06:04 Labs: Abnormal Lab Results - Last 24 Hours (Table) 05/05/22 05/05/22 05/06/22 Range/Units 18:36 18:36 06:04 RBC 4.10 L 3.79 L (4.30-5.90) m/uL Hgb 12.2 L (13.0-17.0) g/dL Hct 38.4 L (39.6-50.0) % MCV 105.8 H 101.3 H (80.0-100.0) fL MCH 32.2 H (27.0-32.0) pg MCHC 31.8 L (32.0-37.0) g/dL RDW 16.9 H (11.5-14.5) % Plt Count 105 L 90 L (150-450) k/uL MPV 12.8 H (9.5-12.2) fL Lymphocytes # 0.2 L (1.0-4.8) k/uL Carbon Dioxide (20.0-27.5) mmol/L Anion Gap (10.00-18.00) mmol/L BUN 40 H (9-20) mg/dL BUN/Creatinine Ratio (12.00-20.00) Ratio Glucose 158 H (74-99) mg/dL POC Glucose (mg/dL) (70-110) mg/dL Calcium (8.7-10.3) mg/dL Total Bilirubin 2.8 H (0.2-1.3) mg/dL AST (14-35) U/L Alkaline Phosphatase 36 L (38-126) U/L Creatine Kinase 869 H (55-170) U/L Total Protein 6.2 L (6.3-8.2) g/dL Albumin (3.8-4.9) g/dL Albumin/Globulin Ratio (1.60-3.17) g/dL 05/06/22 05/06/22 05/06/22 Range/Units 06:04 07:11 07:17 RBC (4.30-5.90) m/uL Hgb (13.0-17.0) g/dL Hct (39.6-50.0) % MCV (80.0-100.0) fL MCH (27.0-32.0) pg MCHC (32.0-37.0) g/dL RDW (11.5-14.5) % Plt Count (150-450) k/uL MPV (9.5-12.2) fL Lymphocytes # (1.0-4.8) k/uL Carbon Dioxide 29.3 H (20.0-27.5) mmol/L Anion Gap 8.30 L (10.00-18.00) mmol/L BUN 32.4 H (9-20) mg/dL BUN/Creatinine Ratio 32.56 H (12.00-20.00) Ratio Glucose 69 L (74-99) mg/dL POC Glucose (mg/dL) 50 L 54 L (70-110) mg/dL Calcium 8.4 L (8.7-10.3) mg/dL Total Bilirubin 1.80 H (0.2-1.3) mg/dL AST 45 H (14-35) U/L Alkaline Phosphatase 32 L (38-126) U/L Creatine Kinase 487 H (55-170) U/L Total Protein 5.0 L (6.3-8.2) g/dL Albumin 3.0 L (3.8-4.9) g/dL Albumin/Globulin Ratio 1.49 L (1.60-3.17) g/dL 05/06/22 05/06/22 Range/Units 07:31 08:17 RBC (4.30-5.90) m/uL Hgb (13.0-17.0) g/dL Hct (39.6-50.0) % MCV (80.0-100.0) fL MCH (27.0-32.0) pg MCHC (32.0-37.0) g/dL RDW (11.5-14.5) % Plt Count (150-450) k/uL MPV (9.5-12.2) fL Lymphocytes # (1.0-4.8) k/uL Carbon Dioxide (20.0-27.5) mmol/L Anion Gap (10.00-18.00) mmol/L BUN (9-20) mg/dL BUN/Creatinine Ratio (12.00-20.00) Ratio Glucose (74-99) mg/dL POC Glucose (mg/dL) 62 L 128 H (70-110) mg/dL Calcium (8.7-10.3) mg/dL Total Bilirubin (0.2-1.3) mg/dL AST (14-35) U/L Alkaline Phosphatase (38-126) U/L Creatine Kinase (55-170) U/L Total Protein (6.3-8.2) g/dL Albumin (3.8-4.9) g/dL Albumin/Globulin Ratio (1.60-3.17) g/dL Assessment and Plan Assessment: #Acute toxic metabolic encephalopathy This patient was found on the floor with alteration in mental status Suspect underlying hypoglycemic episode He's been having several blood glucose measurements below 50 here I will change his IV fluids to D5 normal saline and monitor his blood glucose He seems somewhat fluid overloaded hence will not have to keep a lower rate He feels hungry and I would encourage oral intake Continue to hold oral diabetes medications In view of extensive cardiac history, cardiology consulted He does have elevated liver enzymes, we will obtain ammonia level and ultrasound Septic workup: UA and blood cultures; WBC is normal no fever Discussed with neurology, they canceled the consultation felt it's related to hypoglycemia, patient is known to me from previous admissions #Elevated liver enzymes With elevated bilirubin alk phos Relatively new finding Obtain ammonia level, ultrasound right upper quadrant #Acute on chronic systolic CHF exacerbation with right pleural effusion Continue Lasix Cardiology consultation #Acute hypoxic respiratory failure Pulmonary following Continue diuresis, thoracentesis Incentive spirometer encourage out of bed #Right pleural effusion Pulmonary evaluated, plan for ultrasound-guided thoracentesis on 05/07/22 #Moderate to severe pulmonary hypertension #Chronic atrial fibrillation On Eliquis We'll hold for next 24 hours, due to thoracentesis and recent trauma Continue metoprolol Consider restarting Eliquis next 2448 hours #Chronic, thrombocytopenia #Very mild rhabdomyolysis CPK improving, no need for aggressive hydration Will place on SCDs for DVT prophylaxis while off of Eliquis
[2022-05-06 13:20] LABS: Appearance,Urine Cloudy (Clear); Bacteria,Urine Occasional /hpf; Bilirubin,Urine Negative (Negative); Blood,Urine Large (Negative); Color,Urine Yellow; Glucose,Urine (UA) Negative (Negative); Hyaline Casts,Urine 17 /lpf (0-2); Ketones,Urine Negative (Negative); Leukocyte Esterase,Urine Large (Negative); Mucus,Urine Many /hpf; Nitrite,Urine Negative (Negative); PH, Urine 5.5 (5.0-8.0); Protein,Urine 1+ (Negative); RBC,Urine 150 /hpf (0-5); Specific Gravity,Urine 1.015 (1.001-1.035); Squamous Epithelial Cell,Urine 3 /hpf (0-4); Urobilinogen,Urine <2.0 mg/dL (<2.0); WBC,Urine 48 /hpf (0-5)
[2022-05-06 15:05] LABS: Glucose,Whole Blood 91 mg/dL (70-110)
--- NOTE | 2022-05-06 15:52 | US ---
EXAMINATION TYPE: US abdomen limited DATE OF EXAM: 05/06/2022 COMPARISON: NONE CLINICAL HISTORY: ELEVATED LIVER ENZYMES RUQ. elevated labs EXAM MEASUREMENTS: Liver Length: 15.1 cm Gallbladder Wall: 0.2 cm CBD: 0.3 cm Right Kidney: 8.8 x 4.2 x 4.1 cm Pancreas: not seen due to bowel gas Liver: wnl Gallbladder: stone seen Evidence for sonographic Santo's sign: no CBD: wnl Right Kidney: wnl right pleural effusion IMPRESSION: 1. Cholelithiasis. 2. Incidental note made of a right-sided pleural effusion
[2022-05-06 17:31] LABS: Glucose,Whole Blood 128 mg/dL (70-110)
[2022-05-06 20:30] LABS: Glucose,Whole Blood 145 mg/dL (70-110)
[2022-05-06] MEDS: NITROFURANTOIN MONOHYD/M-CRYST 100 MG CAP PO SCH (21:16)
[2022-05-07 02:16] LABS: Glucose,Whole Blood 55 mg/dL (70-110)
[2022-05-07 02:18] LABS: Glucose,Whole Blood 46 mg/dL (70-110)
[2022-05-07 02:40] LABS: Glucose,Whole Blood 80 mg/dL (70-110)
[2022-05-07 05:54] LABS: Glucose,Whole Blood 95 mg/dL (70-110)
[2022-05-07 07:22] LABS: Glucose,Whole Blood 77 mg/dL (70-110)
[2022-05-07] MEDS: INSULIN ASPART (NovoLOG) 100 UNIT/ML VIAL SQ SCH ×4 (08:14→22:13)
[2022-05-07 09:08] LABS: HCT 35.9 % (39.6-50.0); HGB 11.4 g/dL (13.0-17.0); MCH 31.8 pg (27.0-32.0); MCHC 31.8 g/dL (32.0-37.0); Mean Platelet Volume 11.9 fL (9.5-12.2); NRBC Per 100 WBC 0 /100 WBCS (0.0-0.0); Platelet Count 93 X 10*3/uL (140-440); RBC 3.59 X 10*6/uL (4.40-5.60); RDW 16.8 % (11.5-14.5); WBC 6.28 X 10*3/uL (4.50-10.00)
[2022-05-07] MEDS: lisinopriL 20 MG TAB PO SCH (09:42)
[2022-05-07] MEDS: NITROFURANTOIN MONOHYD/M-CRYST 100 MG CAP PO SCH ×2 (09:43→20:28)
[2022-05-07] MEDS: METOPROLOL TARTRATE 50 MG TAB PO SCH ×3 (09:43→20:30)
[2022-05-07] MEDS: ISOSORBIDE MONONITRATE ER 60 MG TAB.ER.24H PO SCH (09:43)
[2022-05-07] MEDS: FUROSEMIDE 20 MG TAB PO SCH (09:43)
[2022-05-07 09:57] LABS: African American GFR (CKD) 71.6 (60.0-200.0); Albumin/Globulin Ratio 1.58 (1.60-3.17); Anion Gap 6.7 mmol/L (10.00-18.00); BUN/Creat Ratio 25.91 Ratio (12.00-20.00); Blood Urea Nitrogen 28.5 mg/dL (9.0-27.0); Calcium 8.4 mg/dL (8.7-10.3); Carbon Dioxide 31.3 mmol/L (20.0-27.5); Globulin 1.9 g/dL (1.6-3.3); Non-African American GFR(CKD) 61.8 (60.0-200.0); Potassium 3.9 mmol/L (3.5-5.5); Total Bilirubin 1.6 mg/dL (0.30-1.20); Total Protein 4.9 g/dL (6.2-8.2)
[2022-05-07 10:32] LABS: Glucose,Whole Blood 197 mg/dL (70-110)
[2022-05-07 11:01] LABS: INR 1.2 (<1.2); Partial Thromboplastin Time 24.4 sec (22.0-30.0); Prothrombin Time 12.2 sec (9.0-12.0)
[2022-05-07 11:48] LABS: Glucose,Whole Blood 266 mg/dL (70-110)
--- NOTE | 2022-05-07 13:50 | P.GSCN ---
History of Present Illness Consult date: 05/07/22 History of present illness: CHIEF COMPLAINT: Fall HISTORY OF PRESENT ILLNESS: This is a 82-year-old male who was found on the ground at home with altered mental status changes. Apparently he tripped and fell over his walker. Patient was found to have a right pleural effusion on chest xray. He is scheduled for thoracentesis today pulmonary service. He was started on IV Lasix for CHF exacerbation and pleural effusion and cardiology has switched him to oral lasix. Patient had evidence of elevated LFTs and an abdominal ultrasound was ordered. Ultrasound did have evidence of gallstones. Patient is tolerating a heart healthy diet. No nausea or vomiting reported. Patient denies any right upper quadrant abdominal pain. He denies any pain after eating. He does have some epigastric tenderness. Patient does have extensive cardiac history non-with nonischemic cardiomyopathy and AICD placement and atrial fibrillation anticoagulated with Eliquis. He also has a history of stroke with garbled speech. PAST MEDICAL HISTORY: Diabetes, nonischemic myopathy, congestive heart failure, hypertension, CVA PAST SURGICAL HISTORY: See list. MEDICATIONS: See list. ALLERGIES: See list. SOCIAL HISTORY: No illicit drug use. REVIEW OF SYSTEMS: CONSTITUTIONAL: Denies fever or chills. HEENT: Denies blurred vision, vision changes, or eye pain. Denies hemoptysis CARDIOVASCULAR: Denies chest pain or pressure. RESPIRATORY: No shortness of breath. GASTROINTESTINAL: See HPI for pertinent findings HEMATOLOGIC: Denies bleeding disorders. GENITOURINARY: Denies any blood in urine or increased urinary frequency. SKIN: Denies pruitis. Denies rash. PHYSICAL EXAM: VITAL SIGNS: Reviewed GENERAL: Well-developed in no acute distress. HEENT: No sclera icterus. Extraocular movements grossly intact. Moist buccal mucosa. Head is atraumatic, normocephalic. No nasal drainage. ABDOMEN: Soft. Nondistended. mild Epigastric tenderness. No tenderness in RUQ NEUROLOGIC: Alert and orientated x 1. Name only LABORATORY DATA: WBC 6.28 Hgb 11.4 platelets 93 Sodium 140 potassium 3.9 and creatinine 1.1 Total bilirubin 2.8 down to 1.60 AST 45 down to 36 ALT normal at 18 alk phos 34 Creatinine kinase [id number] IMAGING: Abdominal ultrasound with cholelithiasis incidental note made of right-sided pleural effusion Chest ultrasound bilateral pleural effusions Computed tomography scan of the brain and cervical spine no fracture of cervical spine. 3 black appearing chronic small vessel ischemia. Mild hydrocephalus. No change compared to old exam Hand x-ray no fracture ASSESSMENT: 1. Cholelithiasis 2. Elevated LFTs trending down 3. Pleural effusion and congestive heart failure exacerbation 4. History of AICD 5. Thrombocytopenia PLAN: -Further recommendations forthcoming per surgeon -Continue heart healthy diet -Continue supportive care -Continue to monitor LFTs -Phillip currently on hold Thank you for this consultation Physician Radiation Oncology Manager note has been reviewed by physician. Signing provider agrees with the documented findings, assessment, and plan of care. I have personally seen and examined the patient, reviewed the [employer] /PAs history, e xam and MDM and agree with the assessment and plan as written. Based on total visit time, I have performed more than 50% of the visit. As above: Patient with recent findings of gallstones. Abdominal examination reveals mild epigastric tenderness but no right upper quadrant tenderness. Patient's liver enzymes were mildly elevated. White blood cell count is normal. Continue diet for now. We'll monitor patient's epigastric tenderness. No immediate plans for cholecystectomy at this time. Past Medical History Past Medical History: Heart Failure, Hypertension History of Any Multi-Drug Resistant Organisms: None Reported Past Surgical History: Orthopedic Surgery, Pacemaker Additional Past Surgical History / Comment(s): colonoscopy. repair lt toe Past Anesthesia/Blood Transfusion Reactions: No Reported Reaction Date of Last Stent Placement:: 2005 Type of Cardiac Device: Biventricular Pacemaker, Permanent Pacemaker Device Placement Date:: 02-01-2019 Past Psychological History: No Psychological Hx Reported Smoking Status: Former smoker Past Alcohol Use History: None Reported Past Drug Use History: None Reported - Past Family History Mother Family Medical History: No Reported History Brother(s) Family Medical History: Memory Impairment Additional Family Medical History / Comment(s): youngest brother passed at 66 in 2020 from a [place] Medications and Allergies Home Medications Medication Instructions Recorded Confirmed Type Fenofibrate Nanocrystallized 145 mg PO HS 02/16/15 05/05/22 History [Fenofibrate] Isosorbide Mononitrate ER [Imdur] 60 mg PO DAILY 02/16/15 05/05/22 History Metoprolol Tartrate [Lopressor] 100 mg PO BID 02/16/15 05/05/22 History Apixaban [Eliquis] 2.5 mg PO BID 12/03/18 05/05/22 History Furosemide [Lasix] 20 mg PO DAILY 01/18/19 05/05/22 History Glimepiride [Amaryl] 2 mg PO BID 02/01/19 05/05/22 History Ketoconazole 2% Cream [Nizoral 2%] 1 applic TOPICAL DAILY 05/05/22 05/05/22 History lisinopriL [Zestril] 20 mg PO DAILY 05/05/22 05/05/22 History Allergies Allergy/AdvReac Type Severity Reaction Status Date / Time Penicillins AdvReac Unknown Verified 05/05/22 20:22 Surgical - Exam Vital Signs Temp Pulse Resp BP Pulse Ox 96.6 F L 67 18 110/87 88 L 05/05/22 17:52 05/05/22 17:52 05/05/22 17:52 05/05/22 17:52 05/05/22 17:52 Results - Labs 05/07/22 06:03 05/07/22 10:17 Abnormal Lab Results - Last 24 Hours (Table) 05/06/22 05/06/22 05/06/22 Range/Units 12:56 17:29 20:28 RBC (4.40-5.60) X 10*6/uL Hgb (13.0-17.0) g/dL Hct (39.6-50.0) % MCV (80.0-97.0) fL MCHC (32.0-37.0) g/dL RDW (11.5-14.5) % Plt Count (140-440) X 10*3/uL PT (9.0-12.0) sec INR (<1.2) Carbon Dioxide (20.0-27.5) mmol/L Anion Gap (10.00-18.00) mmol/L BUN (9.0-27.0) mg/dL BUN/Creatinine Ratio (12.00-20.00) Ratio POC Glucose (mg/dL) 128 H 145 H (70-110) mg/dL Calcium (8.7-10.3) mg/dL Total Bilirubin (0.30-1.20) mg/dL AST (14-35) U/L Alkaline Phosphatase (41-126) U/L Total Protein (6.2-8.2) g/dL Albumin (3.8-4.9) g/dL Albumin/Globulin Ratio (1.60-3.17) g/dL Urine Protein 1+ H (Negative) Urine Blood Large H (Negative) Ur Leukocyte Esterase Large H (Negative) Urine RBC 150 H (0-5) /hpf Urine WBC 48 H (0-5) /hpf Urine WBC Clumps Few H (None) /hpf Urine Bacteria Occasional H (None) /hpf Hyaline Casts 17 H (0-2) /lpf Urine Mucus Many H (None) /hpf 05/07/22 05/07/22 05/07/22 Range/Units 02:14 02:16 06:03 RBC 3.59 L (4.40-5.60) X 10*6/uL Hgb 11.4 L (13.0-17.0) g/dL Hct 35.9 L (39.6-50.0) % MCV 100.0 H (80.0-97.0) fL MCHC 31.8 L (32.0-37.0) g/dL RDW 16.8 H (11.5-14.5) % Plt Count 93 L (140-440) X 10*3/uL PT (9.0-12.0) sec INR (<1.2) Carbon Dioxide (20.0-27.5) mmol/L Anion Gap (10.00-18.00) mmol/L BUN (9.0-27.0) mg/dL BUN/Creatinine Ratio (12.00-20.00) Ratio POC Glucose (mg/dL) 55 L 46 L (70-110) mg/dL Calcium (8.7-10.3) mg/dL Total Bilirubin (0.30-1.20) mg/dL AST (14-35) U/L Alkaline Phosphatase (41-126) U/L Total Protein (6.2-8.2) g/dL Albumin (3.8-4.9) g/dL Albumin/Globulin Ratio (1.60-3.17) g/dL Urine Protein (Negative) Urine Blood (Negative) Ur Leukocyte Esterase (Negative) Urine RBC (0-5) /hpf Urine WBC (0-5) /hpf Urine WBC Clumps (None) /hpf Urine Bacteria (None) /hpf Hyaline Casts (0-2) /lpf Urine Mucus (None) /hpf 05/07/22 05/07/22 05/07/22 Range/Units 06:03 10:17 10:30 RBC (4.40-5.60) X 10*6/uL Hgb (13.0-17.0) g/dL Hct (39.6-50.0) % MCV (80.0-97.0) fL MCHC (32.0-37.0) g/dL RDW (11.5-14.5) % Plt Count (140-440) X 10*3/uL PT 12.2 H (9.0-12.0) sec INR 1.2 H (<1.2) Carbon Dioxide 31.3 H (20.0-27.5) mmol/L Anion Gap 6.70 L (10.00-18.00) mmol/L BUN 28.5 H (9.0-27.0) mg/dL BUN/Creatinine Ratio 25.91 H (12.00-20.00) Ratio POC Glucose (mg/dL) 197 H (70-110) mg/dL Calcium 8.4 L (8.7-10.3) mg/dL Total Bilirubin 1.60 H (0.30-1.20) mg/dL AST 36 H (14-35) U/L Alkaline Phosphatase 34 L (41-126) U/L Total Protein 4.9 L (6.2-8.2) g/dL Albumin 3.0 L (3.8-4.9) g/dL Albumin/Globulin Ratio 1.58 L (1.60-3.17) g/dL Urine Protein (Negative) Urine Blood (Negative) Ur Leukocyte Esterase (Negative) Urine RBC (0-5) /hpf Urine WBC (0-5) /hpf Urine WBC Clumps (None) /hpf Urine Bacteria (None) /hpf Hyaline Casts (0-2) /lpf Urine Mucus (None) /hpf 05/07/22 Range/Units 11:47 RBC (4.40-5.60) X 10*6/uL Hgb (13.0-17.0) g/dL Hct (39.6-50.0) % MCV (80.0-97.0) fL MCHC (32.0-37.0) g/dL RDW (11.5-14.5) % Plt Count (140-440) X 10*3/uL PT (9.0-12.0) sec INR (<1.2) Carbon Dioxide (20.0-27.5) mmol/L Anion Gap (10.00-18.00) mmol/L BUN (9.0-27.0) mg/dL BUN/Creatinine Ratio (12.00-20.00) Ratio POC Glucose (mg/dL) 266 H (70-110) mg/dL Calcium (8.7-10.3) mg/dL Total Bilirubin (0.30-1.20) mg/dL AST (14-35) U/L Alkaline Phosphatase (41-126) U/L Total Protein (6.2-8.2) g/dL Albumin (3.8-4.9) g/dL Albumin/Globulin Ratio (1.60-3.17) g/dL Urine Protein (Negative) Urine Blood (Negative) Ur Leukocyte Esterase (Negative) Urine RBC (0-5) /hpf Urine WBC (0-5) /hpf Urine WBC Clumps (None) /hpf Urine Bacteria (None) /hpf Hyaline Casts (0-2) /lpf Urine Mucus (None) /hpf Microbiology - Last 24 Hours (Table) 05/06/22 12:56 Urine Culture - Preliminary Urine,Clean Catch Diabetes panel 05/07/22 Range/Units 06:03 Sodium 140 (135-145) mmol/L Potassium 3.9 (3.5-5.5) mmol/L Chloride 102 (96-109) mmol/L Carbon Dioxide 31.3 H (20.0-27.5) mmol/L BUN 28.5 H (9.0-27.0) mg/dL Creatinine 1.1 (0.6-1.5) mg/dL Glucose 80 (70-110) mg/dL Calcium 8.4 L (8.7-10.3) mg/dL AST 36 H (14-35) U/L ALT 18 (10-49) U/L Alkaline Phosphatase 34 L (41-126) U/L Total Protein 4.9 L (6.2-8.2) g/dL Albumin 3.0 L (3.8-4.9) g/dL Calcium panel 05/07/22 Range/Units 06:03 Calcium 8.4 L (8.7-10.3) mg/dL Albumin 3.0 L (3.8-4.9) g/dL Pituitary panel 05/07/22 Range/Units 06:03 Sodium 140 (135-145) mmol/L Potassium 3.9 (3.5-5.5) mmol/L Chloride 102 (96-109) mmol/L Carbon Dioxide 31.3 H (20.0-27.5) mmol/L BUN 28.5 H (9.0-27.0) mg/dL Creatinine 1.1 (0.6-1.5) mg/dL Glucose 80 (70-110) mg/dL Calcium 8.4 L (8.7-10.3) mg/dL Adrenal panel 05/07/22 Range/Units 06:03 Sodium 140 (135-145) mmol/L Potassium 3.9 (3.5-5.5) mmol/L Chloride 102 (96-109) mmol/L Carbon Dioxide 31.3 H (20.0-27.5) mmol/L BUN 28.5 H (9.0-27.0) mg/dL Creatinine 1.1 (0.6-1.5) mg/dL Glucose 80 (70-110) mg/dL Calcium 8.4 L (8.7-10.3) mg/dL Total Bilirubin 1.60 H (0.30-1.20) mg/dL AST 36 H (14-35) U/L ALT 18 (10-49) U/L Alkaline Phosphatase 34 L (41-126) U/L Total Protein 4.9 L (6.2-8.2) g/dL Albumin 3.0 L (3.8-4.9) g/dL
[2022-05-07 14:16] LABS: Reticulocyte % 1.6 % (0.10-1.80)
[2022-05-07 14:41] LABS: Rheumatoid Factor, Qnt <10 IU/mL (0-15)
--- NOTE | 2022-05-07 15:17 | P.PN ---
Subjective Progress Note Date: 05/07/22 Principal diagnosis: Acute exacerbation of CHF likely acute on chronic systolic heart failure present on admission Acute on chronic hypoxic respiratory failure on 2 L oxygen present on admission Right-sided pleural effusion moderate size increase from prior x-rays Right lower lobe atelectasis Chronic kidney disease stage III Chronic thrombocytopenia with stable platelets over 100,000 Cholelithiasis, if symptoms Hypertension hypertensive cardiovascular disease Prior history of CVA Status post fall with elevated CK due to fall 05/07/2022, patient seen eval examined during the rounds labs reviewed medications reviewed patient had ultrasound of the chest performed bilaterally, small pleural fluid on the right side less than 5 cm seen, less than 3 cm seen on the left side, given the small amount of fluid will not do a thoracentesis rather than observe the patient on diuresis, patient incidentally have noted to have a stone in the gallbladder surgery or been consulted however patient is asymptomatic tolerating diet well Patient is a pleasant 82-year-old male well-known to me, patient has chronic systolic heart failure with baseline ejection fraction of the 40%. Family found the patient on the floor and brought him into the hospital he was breathing spon taneously but however was confused more tired than baseline and appears that he was in the floor may be around less than 1 hour patient brought into the hospital for further evaluation on specific questioning there is no history of seizure-like episode loss of consciousness dizziness lightheadedness patient does have mild shortness of breath more than baseline denies any cough or sputum production denies any fever or chills. His other active medical problems include chronic atrial fibrillation on the low-dose Eliquis, dyslipidemia, chronic kidney disease, hypertension hypertensive cardiovascular disease, CVA, chronic hearing loss, type 2 diabetes mellitus In emergency department patient was noted to have a moderate right pleural effusion on her chest x-ray with right-sided pacemaker other significant labs include BUN/creatinine of 40/1.0 to platelet count of 105, and CK is 869, labs are not done today glucose however was 62 him up to 128's total bilirubin is 2.8. Chest x-ray finding as noted above, effusion and interstitial edema appears to be more compared to prior x-ray. X-ray of the hand no fracture seen, C-spine computed tomography scan stable no fracture identified with chronic degenerative joint disease Objective - Vital Signs Vital signs: Vital Signs Temp 97.8 F 05/07/22 13:00 Pulse 60 05/07/22 13:00 Resp 16 05/07/22 13:00 BP 131/70 05/07/22 13:00 Pulse Ox 99 05/07/22 13:00 FiO2 Intake & Output 05/06/22 05/07/22 05/07/22 18:59 06:59 18:59 Intake Total 172 358 Output Total 500 150 Balance -328 208 Weight 66.678 kg 66.5 kg Intake: Oral 172 358 Output: Urine 500 150 Other: Voiding Method Indwelling Catheter Indwelling Catheter Indwelling Catheter # Bowel Movements 1 - Exam - Constitutional General appearance: average body habitus, cooperative, disheveled, mild distress - EENT Eyes: EOMI, PERRLA ENT: normal oropharynx Ears: bilateral: normal - Neck Carotids: bilateral: upstroke normal Thyroid: negative: normal size - Respiratory Respiratory: right: diminished, dullness, bilateral: rales - Cardiovascular Rhythm: regular Heart sounds: normal: S1, S2 - Gastrointestinal General gastrointestinal: soft - Integumentary Integumentary: normal, normal turgor - Neurologic Neurologic: CNII-XII intact - Musculoskeletal Musculoskeletal: generalized weakness, strength equal bilaterally - Psychiatric Psychiatric: A&O x's 3, appropriate affect, intact judgment & insight - Labs CBC & Chem 7: 05/07/22 06:03 05/07/22 06:03 Labs: Abnormal Lab Results - Last 24 Hours (Table) 05/06/22 05/06/22 05/07/22 Range/Units 17:29 20:28 02:14 RBC (4.40-5.60) X 10*6/uL Hgb (13.0-17.0) g/dL Hct (39.6-50.0) % MCV (80.0-97.0) fL MCHC (32.0-37.0) g/dL RDW (11.5-14.5) % Plt Count (140-440) X 10*3/uL PT (9.0-12.0) sec INR (<1.2) Carbon Dioxide (20.0-27.5) mmol/L Anion Gap (10.00-18.00) mmol/L BUN (9.0-27.0) mg/dL BUN/Creatinine Ratio (12.00-20.00) Ratio POC Glucose (mg/dL) 128 H 145 H 55 L (70-110) mg/dL Calcium (8.7-10.3) mg/dL Total Bilirubin (0.30-1.20) mg/dL AST (14-35) U/L Alkaline Phosphatase (41-126) U/L Total Protein (6.2-8.2) g/dL Albumin (3.8-4.9) g/dL Albumin/Globulin Ratio (1.60-3.17) g/dL 05/07/22 05/07/22 05/07/22 Range/Units 02:16 06:03 06:03 RBC 3.59 L (4.40-5.60) X 10*6/uL Hgb 11.4 L (13.0-17.0) g/dL Hct 35.9 L (39.6-50.0) % MCV 100.0 H (80.0-97.0) fL MCHC 31.8 L (32.0-37.0) g/dL RDW 16.8 H (11.5-14.5) % Plt Count 93 L (140-440) X 10*3/uL PT (9.0-12.0) sec INR (<1.2) Carbon Dioxide 31.3 H (20.0-27.5) mmol/L Anion Gap 6.70 L (10.00-18.00) mmol/L BUN 28.5 H (9.0-27.0) mg/dL BUN/Creatinine Ratio 25.91 H (12.00-20.00) Ratio POC Glucose (mg/dL) 46 L (70-110) mg/dL Calcium 8.4 L (8.7-10.3) mg/dL Total Bilirubin 1.60 H (0.30-1.20) mg/dL AST 36 H (14-35) U/L Alkaline Phosphatase 34 L (41-126) U/L Total Protein 4.9 L (6.2-8.2) g/dL Albumin 3.0 L (3.8-4.9) g/dL Albumin/Globulin Ratio 1.58 L (1.60-3.17) g/dL 05/07/22 05/07/22 05/07/22 Range/Units 10:17 10:30 11:47 RBC (4.40-5.60) X 10*6/uL Hgb (13.0-17.0) g/dL Hct (39.6-50.0) % MCV (80.0-97.0) fL MCHC (32.0-37.0) g/dL RDW (11.5-14.5) % Plt Count (140-440) X 10*3/uL PT 12.2 H (9.0-12.0) sec INR 1.2 H (<1.2) Carbon Dioxide (20.0-27.5) mmol/L Anion Gap (10.00-18.00) mmol/L BUN (9.0-27.0) mg/dL BUN/Creatinine Ratio (12.00-20.00) Ratio POC Glucose (mg/dL) 197 H 266 H (70-110) mg/dL Calcium (8.7-10.3) mg/dL Total Bilirubin (0.30-1.20) mg/dL AST (14-35) U/L Alkaline Phosphatase (41-126) U/L Total Protein (6.2-8.2) g/dL Albumin (3.8-4.9) g/dL Albumin/Globulin Ratio (1.60-3.17) g/dL Microbiology - Last 24 Hours (Table) 05/06/22 12:39 Blood Culture - Preliminary Blood No Growth after 24 hours 05/06/22 12:56 Urine Culture - Final Urine,Clean Catch Assessment and Plan Assessment: Acute exacerbation of CHF likely acute on chronic systolic heart failure present on admission Acute on chronic hypoxic respiratory failure on 2 L oxygen present on admission Bilateral pleural effusion small in amount Right-sided pleural effusion moderate size increase from prior x-rays however ultrasound failed to see significant effusion on the small bilateral pleural effusions Chronic kidney disease stage III Cholelithiasis Chronic thrombocytopenia with stable platelets over 100,000 Hypertension hypertensive cardiovascular disease Prior history of CVA Status post fall with elevated CK due to fall Plan: Ultrasound of chest and fluid marking reviewed not enough fluid is present bilaterally will hold the doing a thoracentesis rather than we'll monitor observe patient on diuresis Resume Eliquis for now home dose Monitor renal function closely Further planning as per clinical response of the patient Time with Patient: Greater than 30
[2022-05-07 15:55] VITALS: BMI 25.9
[2022-05-07 16:51] LABS: % Iron Saturation 18.99 (15.00-50.00); Iron 64 ug/dL (65-175); LDH 224 U/L (120-246); Total Iron Binding Capacity 336 ug/dL (228-460)
[2022-05-07 17:03] LABS: ALT 20 U/L (10-49); AST 37 U/L (14-35); African American GFR (CKD) 73.2 (60.0-200.0); Albumin 3.1 g/dL (3.8-4.9); Albumin/Globulin Ratio 1.46 (1.60-3.17); Alkaline Phosphatase 37 U/L (41-126); BUN/Creat Ratio 26.11 Ratio (12.00-20.00); Blood Urea Nitrogen 28.2 mg/dL (9.0-27.0); Calcium 8.5 mg/dL (8.7-10.3); Carbon Dioxide 26.7 mmol/L (20.0-27.5); Chloride 101 mmol/L (96-109); Globulin 2.1 g/dL (1.6-3.3); Glucose 171 mg/dL (70-110); Non-African American GFR(CKD) 63.1 (60.0-200.0); Potassium 3.7 mmol/L (3.5-5.5); Sodium 141 mmol/L (135-145); Total Protein 5.2 g/dL (6.2-8.2)
[2022-05-07 17:29] LABS: Glucose,Whole Blood 58 mg/dL (70-110)
[2022-05-07 17:30] LABS: Protein, Total 5.3 g/dL (6.2-8.2)
[2022-05-07 17:40] LABS: Glucose,Whole Blood 82 mg/dL (70-110)
--- NOTE | 2022-05-07 19:29 | P.CONS ---
History of Present Illness - Reason for Consult Consult date: 05/07/22 Thrombocytopenia Requesting physician: Benjamin Childs - History of Present Illness Mr Barreto is a 82-year-old male withl history significant atrial fibrillation on Eliquis (2.5), diabetes, dyslipidemia, hypertension, peripheral vascular disease, nonischemic cardiomyopathy AICD, coronary artery disease. He follows in the office with Dr. Reddy. We have been asked to see for thrombocytopenia. His platelets are 93K today. He presented to ER after family found on ground. In consult he is in chair, right facial droop, slurred speech Past Medical History Past Medical History: Heart Failure, Hypertension History of Any Multi-Drug Resistant Organisms: None Reported Past Surgical History: Orthopedic Surgery, Pacemaker Additional Past Surgical History / Comment(s): colonoscopy. repair lt toe Past Anesthesia/Blood Transfusion Reactions: No Reported Reaction Date of Last Stent Placement:: 2005 Type of Cardiac Device: Biventricular Pacemaker, Permanent Pacemaker Device Placement Date:: 02-01-2019 Past Psychological History: No Psychological Hx Reported Smoking Status: Former smoker Past Alcohol Use History: None Reported Past Drug Use History: None Reported - Past Family History Mother Family Medical History: No Reported History Brother(s) Family Medical History: Memory Impairment Additional Family Medical History / Comment(s): youngest brother passed at 66 in 2020 from a [place] Medications and Allergies Home Medications Medication Instructions Recorded Confirmed Type Fenofibrate Nanocrystallized 145 mg PO HS 02/16/15 05/05/22 History [Fenofibrate] Isosorbide Mononitrate ER [Imdur] 60 mg PO DAILY 02/16/15 05/05/22 History Metoprolol Tartrate [Lopressor] 100 mg PO BID 02/16/15 05/05/22 History Apixaban [Eliquis] 2.5 mg PO BID 12/03/18 05/05/22 History Furosemide [Lasix] 20 mg PO DAILY 01/18/19 05/05/22 History Glimepiride [Amaryl] 2 mg PO BID 02/01/19 05/05/22 History Ketoconazole 2% Cream [Nizoral 2%] 1 applic TOPICAL DAILY 05/05/22 05/05/22 History lisinopriL [Zestril] 20 mg PO DAILY 05/05/22 05/05/22 History Allergies Allergy/AdvReac Type Severity Reaction Status Date / Time Penicillins AdvReac Unknown Verified 05/05/22 20:22 Physical Exam Vitals: Vital Signs Temp Pulse Pulse Resp BP Pulse Ox 05/07/22 05:00 98.1 F 57 L 16 131/74 98 05/06/22 20:25 98.5 F 59 L 16 113/74 98 05/06/22 20:00 16 05/06/22 13:02 98.4 F 64 18 136/68 97 Intake and Output 05/06/22 05/07/22 05/07/22 22:59 06:59 14:59 Output Total 500 Balance -500 Output: Urine 500 Other: Voiding Method Indwelling Catheter Weight 66.678 kg 66.5 kg Poor historian Right facial droop Diminished AICD BLE Edema Bruising - Constitutional General appearance: cooperative Results CBC & Chem 7: 05/07/22 06:03 05/07/22 10:17 Labs: Abnormal Lab Results - Last 24 Hours (Table) 05/06/22 05/06/22 05/06/22 Range/Units 06:04 06:04 12:56 RBC 3.79 L (4.40-5.60) X 10*6/uL Hgb 12.2 L (13.0-17.0) g/dL Hct 38.4 L (39.6-50.0) % MCV 101.3 H (80.0-97.0) fL MCH 32.2 H (27.0-32.0) pg MCHC 31.8 L (32.0-37.0) g/dL RDW 16.9 H (11.5-14.5) % Plt Count 90 L (140-440) X 10*3/uL MPV 12.8 H (9.5-12.2) fL Carbon Dioxide 29.3 H (20.0-27.5) mmol/L Anion Gap 8.30 L (10.00-18.00) mmol/L BUN 32.4 H (9.0-27.0) mg/dL BUN/Creatinine Ratio 32.56 H (12.00-20.00) Ratio Glucose 69 L (70-110) mg/dL POC Glucose (mg/dL) (70-110) mg/dL Calcium 8.4 L (8.7-10.3) mg/dL Total Bilirubin 1.80 H (0.30-1.20) mg/dL AST 45 H (14-35) U/L Alkaline Phosphatase 32 L (41-126) U/L Creatine Kinase 487 H (35-257) U/L Total Protein 5.0 L (6.2-8.2) g/dL Albumin 3.0 L (3.8-4.9) g/dL Albumin/Globulin Ratio 1.49 L (1.60-3.17) g/dL Urine Protein 1+ H (Negative) Urine Blood Large H (Negative) Ur Leukocyte Esterase Large H (Negative) Urine RBC 150 H (0-5) /hpf Urine WBC 48 H (0-5) /hpf Urine WBC Clumps Few H (None) /hpf Urine Bacteria Occasional H (None) /hpf Hyaline Casts 17 H (0-2) /lpf Urine Mucus Many H (None) /hpf 05/06/22 05/06/22 05/07/22 Range/Units 17:29 20:28 02:14 RBC (4.40-5.60) X 10*6/uL Hgb (13.0-17.0) g/dL Hct (39.6-50.0) % MCV (80.0-97.0) fL MCH (27.0-32.0) pg MCHC (32.0-37.0) g/dL RDW (11.5-14.5) % Plt Count (140-440) X 10*3/uL MPV (9.5-12.2) fL Carbon Dioxide (20.0-27.5) mmol/L Anion Gap (10.00-18.00) mmol/L BUN (9.0-27.0) mg/dL BUN/Creatinine Ratio (12.00-20.00) Ratio Glucose (70-110) mg/dL POC Glucose (mg/dL) 128 H 145 H 55 L (70-110) mg/dL Calcium (8.7-10.3) mg/dL Total Bilirubin (0.30-1.20) mg/dL AST (14-35) U/L Alkaline Phosphatase (41-126) U/L Creatine Kinase (35-257) U/L Total Protein (6.2-8.2) g/dL Albumin (3.8-4.9) g/dL Albumin/Globulin Ratio (1.60-3.17) g/dL Urine Protein (Negative) Urine Blood (Negative) Ur Leukocyte Esterase (Negative) Urine RBC (0-5) /hpf Urine WBC (0-5) /hpf Urine WBC Clumps (None) /hpf Urine Bacteria (None) /hpf Hyaline Casts (0-2) /lpf Urine Mucus (None) /hpf 05/07/22 05/07/22 Range/Units 02:16 06:03 RBC 3.59 L (4.40-5.60) X 10*6/uL Hgb 11.4 L (13.0-17.0) g/dL Hct 35.9 L (39.6-50.0) % MCV 100.0 H (80.0-97.0) fL MCH (27.0-32.0) pg MCHC 31.8 L (32.0-37.0) g/dL RDW 16.8 H (11.5-14.5) % Plt Count 93 L (140-440) X 10*3/uL MPV (9.5-12.2) fL Carbon Dioxide (20.0-27.5) mmol/L Anion Gap (10.00-18.00) mmol/L BUN (9.0-27.0) mg/dL BUN/Creatinine Ratio (12.00-20.00) Ratio Glucose (70-110) mg/dL POC Glucose (mg/dL) 46 L (70-110) mg/dL Calcium (8.7-10.3) mg/dL Total Bilirubin (0.30-1.20) mg/dL AST (14-35) U/L Alkaline Phosphatase (41-126) U/L Creatine Kinase (35-257) U/L Total Protein (6.2-8.2) g/dL Albumin (3.8-4.9) g/dL Albumin/Globulin Ratio (1.60-3.17) g/dL Urine Protein (Negative) Urine Blood (Negative) Ur Leukocyte Esterase (Negative) Urine RBC (0-5) /hpf Urine WBC (0-5) /hpf Urine WBC Clumps (None) /hpf Urine Bacteria (None) /hpf Hyaline Casts (0-2) /lpf Urine Mucus (None) /hpf Microbiology - Last 24 Hours (Table) 05/06/22 12:56 Urine Culture - Preliminary Urine,Clean Catch Assessment and Plan (1) Thrombocytopenia Narrative/Plan: Mild and stable but required close moitor and further work-up ordered. Will follow Current Visit: Yes Status: Acute Code(s): D69.6 - THROMBOCYTOPENIA, UNSPECIFIED SNOMED Code(s): 906469546
[2022-05-07 20:56] LABS: Glucose,Whole Blood 92 mg/dL (70-110)
--- NOTE | 2022-05-07 21:25 | P.PN ---
Subjective Progress Note Date: 05/07/22 (delayed charting seen at 1105) Patient is an 82-year-old male with systolic congestive heart failure and an ejection fraction 40-45%, A. fib status post by the ICD on eliquis, hypertension, sick daily, diabetes mellitus type 2, and multiple other comorbid conditions who presented to the ER after he was found on the floor if his home by family members. Patient seen and examined at bedside. He complains of abdominal pain and right shoulder blade pain, no nuasea or vomitnig, no chest pain. General: [nontoxic], [no distress], [appears at stated age] Derm: [warm], [dry] Head: [atraumatic], [normocephalic], [symmetric] Eyes: [EOMI], [no lid lag], [anicteric sclera] Mouth: [no lip lesion], [mucus membranes moist], [place], Cardiovascular: [S1S2 reg], [no murmur], [positive posterior tibial pulse bilateral], Lungs: [CTA bilateral], [no rhonchi, no rales] , [no accessory muscle use] Abdominal: [soft], [+tender to palpation diffusely], [no guarding], [no appreciable organomegaly] Ext: [no gross muscle atrophy], [no edema], [no contractures] Neuro: [ CN II-XI grossly intact], [no focal neuro deficits], significant speech delay Psych: [Alert], [oriented], [appropriate affect] Assessment/Plan: Urinary retention - s/p acevedo - started on flomax Symptomatic cholethiasis with elevated bilirubin - consult surgery - pain control DM II wtih hypoglycemia - hold orals - follow BS - A1C Chronic systolic CHF EF40-45% Severe pulm HTN - lasix, lisinopril, metoprolol - outpatinet cardiology consult Acute on chronic hypoxic respiratory failure Right plerual effusion - pulm recs apprecaited not enough fluid to drain Fall/Debility - pt/ot - fall precautions Thrombocytopenia Anemia - B 12 and folate normal - Ferritin 317 - oncology recs - follow CBC Chronic atrial fibrillation -On Eliquis- hold today possibly resume in AM if no plans for surgicla intervent ion -Continue metoprolol Rhabdomyolysis, improved Chronic conditions: hypertension, hyperlipidemia, history of CVA Active Medications Furosemide (Furosemide 20 Mg Tab) 20 mg PO DAILY [facility] Last Admin: 05/07/22 09:43 Dose: 20 mg Insulin Aspart (Insulin Aspart (Novolog) 100 Unit/Ml Vial) 0 unit SQ ACHS [facility]; Protocol Last Admin: 05/07/22 17:18 Dose: Not Given Isosorbide Mononitrate (Isosorbide Mononitrate Er 60 Mg Tab.Er.24h) 60 mg PO DAILY [facility] Last Admin: 05/07/22 09:43 Dose: 60 mg Lisinopril (Lisinopril 20 Mg Tab) 20 mg PO DAILY [facility] Last Admin: 05/07/22 09:42 Dose: 20 mg Metoprolol Tartrate (Metoprolol Tartrate 50 Mg Tab) 100 mg PO BID [facility] Last Admin: 05/07/22 20:30 Dose: 100 mg Nitrofurantoin Macrocrystals (Nitrofurantoin Monohyd/M-Cryst 100 Mg Cap) 100 mg PO BID [facility]; Protocol Stop: 05/09/22 21:01 Last Admin: 05/07/22 20:28 Dose: 100 mg Objective - Vital Signs Vital signs: Vital Signs Temp 97.6 F 05/07/22 20:36 Pulse 60 05/07/22 20:36 Resp 18 05/07/22 20:36 BP 154/82 05/07/22 20:36 Pulse Ox 99 05/07/22 20:36 FiO2 2 05/07/22 15:24 Intake & Output 05/07/22 05/07/22 05/08/22 06:59 18:59 06:59 Intake Total 358 Output Total 150 Balance 208 Weight 66.5 kg 66.5 kg Intake: Oral 358 Output: Urine 150 Other: Voiding Method Indwelling Catheter Indwelling Catheter - Labs CBC & Chem 7: 05/07/22 06:03 05/07/22 10:17 Labs: Abnormal Lab Results - Last 24 Hours (Table) 05/07/22 05/07/22 05/07/22 Range/Units 02:14 02:16 06:03 RBC 3.59 L (4.40-5.60) X 10*6/uL Hgb 11.4 L (13.0-17.0) g/dL Hct 35.9 L (39.6-50.0) % MCV 100.0 H (80.0-97.0) fL MCHC 31.8 L (32.0-37.0) g/dL RDW 16.8 H (11.5-14.5) % Plt Count 93 L (140-440) X 10*3/uL PT (9.0-12.0) sec INR (<1.2) Carbon Dioxide (20.0-27.5) mmol/L Anion Gap (10.00-18.00) mmol/L BUN (9.0-27.0) mg/dL BUN/Creatinine Ratio (12.00-20.00) Ratio Glucose (70-110) mg/dL POC Glucose (mg/dL) 55 L 46 L (70-110) mg/dL Calcium (8.7-10.3) mg/dL Iron (65-175) ug/dL Total Bilirubin (0.30-1.20) mg/dL AST (14-35) U/L Alkaline Phosphatase (41-126) U/L Total Protein (6.2-8.2) g/dL Total Protein (PEP) (6.2-8.2) g/dL Albumin (3.8-4.9) g/dL Albumin/Globulin Ratio (1.60-3.17) g/dL 05/07/22 05/07/22 05/07/22 Range/Units 06:03 10:17 10:17 RBC (4.40-5.60) X 10*6/uL Hgb (13.0-17.0) g/dL Hct (39.6-50.0) % MCV (80.0-97.0) fL MCHC (32.0-37.0) g/dL RDW (11.5-14.5) % Plt Count (140-440) X 10*3/uL PT 12.2 H (9.0-12.0) sec INR 1.2 H (<1.2) Carbon Dioxide 31.3 H (20.0-27.5) mmol/L Anion Gap 6.70 L (10.00-18.00) mmol/L BUN 28.5 H 28.2 H (9.0-27.0) mg/dL BUN/Creatinine Ratio 25.91 H 26.11 H (12.00-20.00) Ratio Glucose 171 H (70-110) mg/dL POC Glucose (mg/dL) (70-110) mg/dL Calcium 8.4 L 8.5 L (8.7-10.3) mg/dL Iron 64 L (65-175) ug/dL Total Bilirubin 1.60 H 1.60 H (0.30-1.20) mg/dL AST 36 H 37 H (14-35) U/L Alkaline Phosphatase 34 L 37 L (41-126) U/L Total Protein 4.9 L 5.2 L (6.2-8.2) g/dL Total Protein (PEP) (6.2-8.2) g/dL Albumin 3.0 L 3.1 L (3.8-4.9) g/dL Albumin/Globulin Ratio 1.58 L 1.46 L (1.60-3.17) g/dL 05/07/22 05/07/22 05/07/22 Range/Units 10:17 10:30 11:47 RBC (4.40-5.60) X 10*6/uL Hgb (13.0-17.0) g/dL Hct (39.6-50.0) % MCV (80.0-97.0) fL MCHC (32.0-37.0) g/dL RDW (11.5-14.5) % Plt Count (140-440) X 10*3/uL PT (9.0-12.0) sec INR (<1.2) Carbon Dioxide (20.0-27.5) mmol/L Anion Gap (10.00-18.00) mmol/L BUN (9.0-27.0) mg/dL BUN/Creatinine Ratio (12.00-20.00) Ratio Glucose (70-110) mg/dL POC Glucose (mg/dL) 197 H 266 H (70-110) mg/dL Calcium (8.7-10.3) mg/dL Iron (65-175) ug/dL Total Bilirubin (0.30-1.20) mg/dL AST (14-35) U/L Alkaline Phosphatase (41-126) U/L Total Protein (6.2-8.2) g/dL Total Protein (PEP) 5.3 L (6.2-8.2) g/dL Albumin (3.8-4.9) g/dL Albumin/Globulin Ratio (1.60-3.17) g/dL 05/07/22 Range/Units 17:12 RBC (4.40-5.60) X 10*6/uL Hgb (13.0-17.0) g/dL Hct (39.6-50.0) % MCV (80.0-97.0) fL MCHC (32.0-37.0) g/dL RDW (11.5-14.5) % Plt Count (140-440) X 10*3/uL PT (9.0-12.0) sec INR (<1.2) Carbon Dioxide (20.0-27.5) mmol/L Anion Gap (10.00-18.00) mmol/L BUN (9.0-27.0) mg/dL BUN/Creatinine Ratio (12.00-20.00) Ratio Glucose (70-110) mg/dL POC Glucose (mg/dL) 58 L (70-110) mg/dL Calcium (8.7-10.3) mg/dL Iron (65-175) ug/dL Total Bilirubin (0.30-1.20) mg/dL AST (14-35) U/L Alkaline Phosphatase (41-126) U/L Total Protein (6.2-8.2) g/dL Total Protein (PEP) (6.2-8.2) g/dL Albumin (3.8-4.9) g/dL Albumin/Globulin Ratio (1.60-3.17) g/dL Microbiology - Last 24 Hours (Table) 05/06/22 12:39 Blood Culture - Preliminary Blood No Growth after 24 hours 05/06/22 12:56 Urine Culture - Final Urine,Clean Catch
[2022-05-08 02:15] LABS: Glucose,Whole Blood 52 mg/dL (70-110)
[2022-05-08 02:45] LABS: Glucose,Whole Blood 98 mg/dL (70-110)
[2022-05-08] MEDS: INSULIN ASPART (NovoLOG) 100 UNIT/ML VIAL SQ SCH (06:48)
[2022-05-08 07:22] LABS: Glucose,Whole Blood 94 mg/dL (70-110)
--- NOTE | 2022-05-08 07:49 | P.PN ---
Subjective Progress Note Date: 05/08/22 Principal diagnosis: Acute exacerbation of CHF likely acute on chronic systolic heart failure present on admission Acute on chronic hypoxic respiratory failure on 2 L oxygen present on admission Right-sided pleural effusion moderate size increase from prior x-rays Right lower lobe atelectasis Chronic kidney disease stage III Chronic thrombocytopenia with stable platelets over 100,000 Cholelithiasis, if symptoms Hypertension hypertensive cardiovascular disease Prior history of CVA Status post fall with elevated CK due to fall 05/08/2022, patient seen eval examined during the rounds labs reviewed medications reviewed care plan discussed, respiratory status remains stable denies any chest pain and mild dyspnea on exertion is present cuff congestion shortness breath is significantly improved compared to yesterday's exam, surgical service evaluated the patient patient is being considered for conservative management at this point of time continue gentle diuresis no plans for thoracentesis, patient remains afebrile and hemodynamically stable saturation 94% on 2 L oxygen nasal cannula 05/07/2022, patient seen eval examined during the rounds labs reviewed medi cations reviewed patient had ultrasound of the chest performed bilaterally, small pleural fluid on the right side less than 5 cm seen, less than 3 cm seen on the left side, given the small amount of fluid will not do a thoracentesis rather than observe the patient on diuresis, patient incidentally have noted to have a stone in the gallbladder surgery or been consulted however patient is asymptomatic tolerating diet well Patient is a pleasant 82-year-old male well-known to me, patient has chronic systolic heart failure with baseline ejection fraction of the 40%. Family found the patient on the floor and brought him into the hospital he was breathing spontaneously but however was confused more tired than baseline and appears that he was in the floor may be around less than 1 hour patient brought into the hospital for further evaluation on specific questioning there is no history of seizure-like episode loss of consciousness dizziness lightheadedness patient does have mild shortness of breath more than baseline denies any cough or sputum production denies any fever or chills. His other active medical problems include chronic atrial fibrillation on the low-dose Eliquis, dyslipidemia, chronic kidney disease, hypertension hypertensive cardiovascular disease, CVA, chronic hearing loss, type 2 diabetes mellitus In emergency department patient was noted to have a moderate right pleural effusion on her chest x-ray with right-sided pacemaker other significant labs include BUN/creatinine of 40/1.0 to platelet count of 105, and CK is 869, labs are not done today glucose however was 62 him up to 128's total bilirubin is 2.8. Chest x-ray finding as noted above, effusion and interstitial edema appears to be more compared to prior x-ray. X-ray of the hand no fracture seen, C-spine computed tomography scan stable no fracture identified with chronic degenerative joint disease Objective - Vital Signs Vital signs: Vital Signs Temp 97.8 F 05/08/22 05:00 Pulse 60 05/08/22 05:00 Resp 16 05/08/22 05:00 BP 146/81 05/08/22 05:00 Pulse Ox 94 L 05/08/22 05:00 FiO2 2 05/07/22 15:24 Intake & Output 05/07/22 05/08/22 05/08/22 18:59 06:59 18:59 Intake Total 358 Output Total 150 950 Balance 208 -950 Weight 66.5 kg 69 kg Intake: Oral 358 Output: Urine 150 950 Other: Voiding Method Indwelling Catheter Indwelling Catheter # Bowel Movements 0 - Exam - Constitutional General appearance: average body habitus, cooperative, disheveled, mild distress - EENT Eyes: EOMI, PERRLA ENT: normal oropharynx Ears: bilateral: normal - Neck Carotids: bilateral: upstroke normal Thyroid: negative: normal size - Respiratory Respiratory: right: diminished, dullness, bilateral: rales - Cardiovascular Rhythm: regular Heart sounds: normal: S1, S2 - Gastrointestinal General gastrointestinal: soft - Integumentary Integumentary: normal, normal turgor - Neurologic Neurologic: CNII-XII intact - Musculoskeletal Musculoskeletal: generalized weakness, strength equal bilaterally - Psychiatric Psychiatric: A&O x's 3, appropriate affect, intact judgment & insight - Labs CBC & Chem 7: 05/07/22 06:03 05/07/22 10:17 Labs: Abnormal Lab Results - Last 24 Hours (Table) 05/07/22 05/07/22 05/07/22 Range/Units 06:03 06:03 10:17 RBC 3.59 L (4.40-5.60) X 10*6/uL Hgb 11.4 L (13.0-17.0) g/dL Hct 35.9 L (39.6-50.0) % MCV 100.0 H (80.0-97.0) fL MCHC 31.8 L (32.0-37.0) g/dL RDW 16.8 H (11.5-14.5) % Plt Count 93 L (140-440) X 10*3/uL PT 12.2 H (9.0-12.0) sec INR 1.2 H (<1.2) Carbon Dioxide 31.3 H (20.0-27.5) mmol/L Anion Gap 6.70 L (10.00-18.00) mmol/L BUN 28.5 H (9.0-27.0) mg/dL BUN/Creatinine Ratio 25.91 H (12.00-20.00) Ratio Glucose (70-110) mg/dL POC Glucose (mg/dL) (70-110) mg/dL Calcium 8.4 L (8.7-10.3) mg/dL Iron (65-175) ug/dL Total Bilirubin 1.60 H (0.30-1.20) mg/dL AST 36 H (14-35) U/L Alkaline Phosphatase 34 L (41-126) U/L Total Protein 4.9 L (6.2-8.2) g/dL Total Protein (PEP) (6.2-8.2) g/dL Albumin 3.0 L (3.8-4.9) g/dL Albumin/Globulin Ratio 1.58 L (1.60-3.17) g/dL 05/07/22 05/07/22 05/07/22 Range/Units 10:17 10:17 10:30 RBC (4.40-5.60) X 10*6/uL Hgb (13.0-17.0) g/dL Hct (39.6-50.0) % MCV (80.0-97.0) fL MCHC (32.0-37.0) g/dL RDW (11.5-14.5) % Plt Count (140-440) X 10*3/uL PT (9.0-12.0) sec INR (<1.2) Carbon Dioxide (20.0-27.5) mmol/L Anion Gap (10.00-18.00) mmol/L BUN 28.2 H (9.0-27.0) mg/dL BUN/Creatinine Ratio 26.11 H (12.00-20.00) Ratio Glucose 171 H (70-110) mg/dL POC Glucose (mg/dL) 197 H (70-110) mg/dL Calcium 8.5 L (8.7-10.3) mg/dL Iron 64 L (65-175) ug/dL Total Bilirubin 1.60 H (0.30-1.20) mg/dL AST 37 H (14-35) U/L Alkaline Phosphatase 37 L (41-126) U/L Total Protein 5.2 L (6.2-8.2) g/dL Total Protein (PEP) 5.3 L (6.2-8.2) g/dL Albumin 3.1 L (3.8-4.9) g/dL Albumin/Globulin Ratio 1.46 L (1.60-3.17) g/dL 05/07/22 05/07/22 05/08/22 Range/Units 11:47 17:12 02:13 RBC (4.40-5.60) X 10*6/uL Hgb (13.0-17.0) g/dL Hct (39.6-50.0) % MCV (80.0-97.0) fL MCHC (32.0-37.0) g/dL RDW (11.5-14.5) % Plt Count (140-440) X 10*3/uL PT (9.0-12.0) sec INR (<1.2) Carbon Dioxide (20.0-27.5) mmol/L Anion Gap (10.00-18.00) mmol/L BUN (9.0-27.0) mg/dL BUN/Creatinine Ratio (12.00-20.00) Ratio Glucose (70-110) mg/dL POC Glucose (mg/dL) 266 H 58 L 52 L (70-110) mg/dL Calcium (8.7-10.3) mg/dL Iron (65-175) ug/dL Total Bilirubin (0.30-1.20) mg/dL AST (14-35) U/L Alkaline Phosphatase (41-126) U/L Total Protein (6.2-8.2) g/dL Total Protein (PEP) (6.2-8.2) g/dL Albumin (3.8-4.9) g/dL Albumin/Globulin Ratio (1.60-3.17) g/dL Microbiology - Last 24 Hours (Table) 05/06/22 12:39 Blood Culture - Preliminary Blood No Growth after 24 hours 05/06/22 12:56 Urine Culture - Final Urine,Clean Catch Assessment and Plan Assessment: Acute exacerbation of CHF likely acute on chronic systolic heart failure present on admission Acute on chronic hypoxic respiratory failure on 2 L oxygen present on admission Bilateral pleural effusion small in amount Right-sided pleural effusion moderate size increase from prior x-rays however ultrasound failed to see significant effusion on the small bilateral pleural effusions Chronic kidney disease stage III Cholelithiasis Chronic thrombocytopenia with stable platelets over 100,000 Hypertension hypertensive cardiovascular disease Prior history of CVA Status post fall with elevated CK due to fall Plan: Ultrasound of chest and fluid marking reviewed not enough fluid is present bilaterally will hold the doing a thoracentesis rather than we'll monitor observe patient on diuresis Resume Eliquis for now home dose Monitor renal function closely Further planning as per clinical response of the patient
[2022-05-08 07:56] LABS: ALT 18 U/L (4-49); AST 34 U/L (17-59); African American GFR (CKD) 81 (>60 ml/min/1.73 sqM); Albumin 2.9 g/dL (3.5-5.0); Albumin/Globulin Ratio 1.1; Alkaline Phosphatase 37 U/L (38-126); Anion Gap 4 mmol/L; Blood Urea Nitrogen 29 mg/dL (9-20); Calcium 8.1 mg/dL (8.4-10.2); Carbon Dioxide 34 mmol/L (22-30); Chloride 101 mmol/L (98-107); Globulin 2.7 g/dL; Glucose 100 mg/dL (74-99); Non-African American GFR(CKD) 70 (>60 ml/min/1.73 sqM); Potassium 3.9 mmol/L (3.5-5.1); Sodium 139 mmol/L (137-145); Total Bilirubin 1.7 mg/dL (0.2-1.3); Total Protein 5.6 g/dL (6.3-8.2)
[2022-05-08 07:57] LABS: Anisocytosis Slight; HCT 39.1 % (39.0-53.0); HGB 12.6 gm/dL (13.0-17.5); MCHC 32.3 g/dL (31.0-37.0); MCV 105.4 fL (80.0-100.0); Macrocytosis Moderate; Mean Platelet Volume 10.1; RBC 3.71 m/uL (4.30-5.90); WBC 5.6 k/uL (3.8-10.6)
[2022-05-08 07:59] LABS: Platelet Count 99 k/uL (150-450)
[2022-05-08] MEDS: lisinopriL 20 MG TAB PO SCH (09:43)
[2022-05-08] MEDS: ISOSORBIDE MONONITRATE ER 60 MG TAB.ER.24H PO SCH (09:43)
[2022-05-08] MEDS: FUROSEMIDE 20 MG TAB PO SCH (09:43)
[2022-05-08] MEDS: TAMSULOSIN 0.4 MG CAP.ER.24H PO SCH (09:43)
[2022-05-08] MEDS: METOPROLOL TARTRATE 50 MG TAB PO SCH ×2 (09:44→23:33)
[2022-05-08] MEDS: NITROFURANTOIN MONOHYD/M-CRYST 100 MG CAP PO SCH ×2 (09:44→23:33)
--- NOTE | 2022-05-08 11:05 | P.PN ---
Subjective Progress Note Date: 05/08/22 CHIEF COMPLAINT: Fall and right pleural effusion HISTORY OF PRESENT ILLNESS: Patient sitting up in bed. He just completed breakfast and is now complaining of right upper quadrant abdominal pain. Denies any nausea or vomiting. Patient did not require thoracentesis for his pleural effusion. Patient follow-up pulmonary service. Afebrile. WBC 5.6 Hgb 12.6 platelets 99 sodium was 139 potassium 3.9 and creatinine 0.99 total bilirubin 1.6 up to 1.7 AST 34 ALT 18 alk phos 37 PHYSICAL EXAM: VITAL SIGNS: Reviewed. GENERAL: Well-developed in no acute distress. HEENT: No sclera icterus. Extraocular movements grossly intact. Moist buccal mucosa. Head is atraumatic, normocephalic. ABDOMEN: Soft. Nondistended. Nontender. NEUROLOGIC: Alert and oriented. Cranial nerves II through XII grossly intact. ASSESSMENT: 1. Cholelithiasis with right upper quadrant abdominal pain after eating 2. Elevated LFTs trending down 3. Right Pleural effusion and congestive heart failure 4. History of AICD 5. Thrombocytopenia PLAN: -Further recommendations forthcoming per surgeon -Continue to monitor LFTs -Add low-fat diet -Continue to hold Eliquis Physician Conveyor Attendant note has been reviewed by physician. Signing provider agrees with the documented findings, assessment, and plan of care. I have personally seen and examined the patient, reviewed the CHANGE MANAGEMENT LEAD /PAs history, exam and MDM and agree with the assessment and plan as written. Based on total visit time, I have performed more than 50% of the visit. As above: Patient apparently had pain earlier this morning on the right side. Currently he points to the left midabdomen as the site of pain. Labs are improved. Patient with high risk of operative morbidity and mortality. Not convinced that the patient's gallbladder is symptomatic currently. Will order a HIDA scan to evaluate patency of the cystic duct. If cystic duct patent will c ontinue nonoperative approach. We'll follow with you. Objective - Vital Signs Vital signs: Vital Signs Temp 97.8 F 05/08/22 05:00 Pulse 60 05/08/22 09:48 Resp 16 05/08/22 05:00 BP 149/76 05/08/22 09:48 Pulse Ox 94 L 05/08/22 05:00 FiO2 2 05/07/22 15:24 Intake & Output 05/07/22 05/08/22 05/08/22 18:59 06:59 18:59 Intake Total 358 Output Total 150 950 Balance 208 -950 Weight 66.5 kg 69 kg Intake: Oral 358 Output: Urine 150 950 Other: Voiding Method Indwelling Catheter Indwelling Catheter Indwelling Catheter # Voids 1 # Bowel Movements 0 1 - Labs CBC & Chem 7: 05/08/22 06:33 05/08/22 06:33 Labs: Abnormal Lab Results - Last 24 Hours (Table) 05/07/22 05/07/22 05/07/22 Range/Units 10:17 10:17 10:17 RBC (4.30-5.90) m/uL Hgb (13.0-17.5) gm/dL MCV (80.0-100.0) fL RDW (11.5-15.5) % Plt Count (150-450) k/uL PT 12.2 H (9.0-12.0) sec INR 1.2 H (<1.2) Carbon Dioxide (22-30) mmol/L BUN 28.2 H (9.0-27.0) mg/dL BUN/Creatinine Ratio 26.11 H (12.00-20.00) Ratio Glucose 171 H (70-110) mg/dL POC Glucose (mg/dL) (70-110) mg/dL Calcium 8.5 L (8.7-10.3) mg/dL Iron 64 L (65-175) ug/dL Total Bilirubin 1.60 H (0.30-1.20) mg/dL AST 37 H (14-35) U/L Alkaline Phosphatase 37 L (41-126) U/L Total Protein 5.2 L (6.2-8.2) g/dL Total Protein (PEP) 5.3 L (6.2-8.2) g/dL Albumin 3.1 L (3.8-4.9) g/dL Albumin/Globulin Ratio 1.46 L (1.60-3.17) g/dL 05/07/22 05/07/22 05/08/22 Range/Units 11:47 17:12 02:13 RBC (4.30-5.90) m/uL Hgb (13.0-17.5) gm/dL MCV (80.0-100.0) fL RDW (11.5-15.5) % Plt Count (150-450) k/uL PT (9.0-12.0) sec INR (<1.2) Carbon Dioxide (22-30) mmol/L BUN (9.0-27.0) mg/dL BUN/Creatinine Ratio (12.00-20.00) Ratio Glucose (70-110) mg/dL POC Glucose (mg/dL) 266 H 58 L 52 L (70-110) mg/dL Calcium (8.7-10.3) mg/dL Iron (65-175) ug/dL Total Bilirubin (0.30-1.20) mg/dL AST (14-35) U/L Alkaline Phosphatase (41-126) U/L Total Protein (6.2-8.2) g/dL Total Protein (PEP) (6.2-8.2) g/dL Albumin (3.8-4.9) g/dL Albumin/Globulin Ratio (1.60-3.17) g/dL 05/08/22/ Range/Units 06:33 06:33 RBC 3.71 L (4.30-5.90) m/uL Hgb 12.6 L (13.0-17.5) gm/dL MCV 105.4 H (80.0-100.0) fL RDW 16.0 H (11.5-15.5) % Plt Count 99 L (150-450) k/uL PT (9.0-12.0) sec INR (<1.2) Carbon Dioxide 34 H (22-30) mmol/L BUN 29 H (9.0-27.0) mg/dL BUN/Creatinine Ratio (12.00-20.00) Ratio Glucose 100 H (70-110) mg/dL POC Glucose (mg/dL) (70-110) mg/dL Calcium 8.1 L (8.7-10.3) mg/dL Iron (65-175) ug/dL Total Bilirubin 1.7 H (0.30-1.20) mg/dL AST (14-35) U/L Alkaline Phosphatase 37 L (41-126) U/L Total Protein 5.6 L (6.2-8.2) g/dL Total Protein (PEP) (6.2-8.2) g/dL Albumin 2.9 L (3.8-4.9) g/dL Albumin/Globulin Ratio (1.60-3.17) g/dL Microbiology - Last 24 Hours (Table) 05/06/22 12:39 Blood Culture - Preliminary Blood No Growth after 24 hours 05/06/22 12:56 Urine Culture - Final Urine,Clean Catch
[2022-05-08 11:46] LABS: Glucose,Whole Blood 90 mg/dL (70-110)
[2022-05-08] MEDS: ACETAMINOPHEN TAB 325 MG TAB PO PRN (15:13)
--- NOTE | 2022-05-08 16:13 | P.PN ---
Subjective Progress Note Date: 05/08/22 (delayed charting seen at 1130) Patient is an 82-year-old male with systolic congestive heart failure and an ejection fraction 40-45%, A. fib status post by the ICD on eliquis, hypertension, sick daily, diabetes mellitus type 2, and multiple other comorbid conditions who presented to the ER after he was found on the floor if his home by family members. Patient seen and examined at bedside. He complains of RUQ pain while eating, no nausea, still feeling hungry today. General: nontoxic, no distress, appears at stated age Derm: warm, dry Head: atraumatic, normocephalic, symmetric Eyes: EOMI, no lid lag, anicteric sclera Mouth: no lip lesion, mucus membranes moist, QAWALANGIN, Cardiovascular: S1S2 reg, no murmur, positive posterior tibial pulse bilateral, Lungs: CTA bilateral, no rhonchi, no rales , no accessory muscle use Abdominal: soft, +tender to palpation RUQ, no guarding, no appreciable organomegaly Ext: no gross muscle atrophy, no edema, no contractures Neuro: CN II-XI grossly intact, no focal neuro deficits, significant speech delay Psych: Alert, oriented, appropriate affect Assessment/Plan: Urinary retention - s/p acevedo, will have voiding trial today - started on flomax Cholelithiasis - surgery recs, no emergent indication for surgery - pain control DM II wtih hypoglycemia - hold orals - follow BS - A1C 6, plan is for home without medications. Chronic systolic CHF EF40-45% Severe pulm HTN - lasix, lisinopril, metoprolol - outpatient cardiology consult Acute on chronic hypoxic respiratory failure Right plerual effusion - pulm recs appreciated not enough fluid to drain Fall/Debility - pt/ot - fall precautions Thrombocytopenia Anemia - B 12 and folate normal - Ferritin 317 - oncology recs - follow CBC Chronic atrial fibrillation -On Eliquis- hold today possibly resume in AM if no plans for surgical intervent ion -Continue metoprolol Rhabdomyolysis, improved Chronic conditions: hypertension, hyperlipidemia, history of CVA Active Medications Acetaminophen (Acetaminophen Tab 325 Mg Tab) 650 mg PO Q6HR PRN PRN Reason: Fever and/ or Pain Last Admin: 05/08/22 15:13 Dose: 650 mg Furosemide (Furosemide 20 Mg Tab) 20 mg PO DAILY ANA Last Admin: 05/08/22 09:43 Dose: 20 mg Isosorbide Mononitrate (Isosorbide Mononitrate Er 60 Mg Tab.Er.24h) 60 mg PO DAILY [facility] Last Admin: 05/08/22 09:43 Dose: 60 mg Lisinopril (Lisinopril 20 Mg Tab) 20 mg PO DAILY [facility] Last Admin: 05/08/22 09:43 Dose: 20 mg Metoprolol Tartrate (Metoprolol Tartrate 50 Mg Tab) 100 mg PO BID [facility] Last Admin: 05/08/22 09:44 Dose: 100 mg Nitrofurantoin Macrocrystals (Nitrofurantoin Monohyd/M-Cryst 100 Mg Cap) 100 mg PO BID [facility]; Protocol Stop: 05/09/22 21:01 Last Admin: 05/08/22 09:44 Dose: 100 mg Tamsulosin HCl (Tamsulosin 0.4 Mg Cap.Er.24h) 0.4 mg PO PC-[facility]KFST [facility] Last Admin: 05/08/22 09:43 Dose: 0.4 mg Objective - Vital Signs Vital signs: Vital Signs Temp 98.1 F 05/08/22 11:57 Pulse 60 05/08/22 11:57 Resp 18 05/08/22 11:57 BP 136/75 05/08/22 11:57 Pulse Ox 98 05/08/22 11:57 FiO2 2 05/07/22 15:24 Intake & Output 05/07/22 05/08/22 05/08/22 18:59 06:59 18:59 Intake Total 358 Output Total 150 950 400 Balance 208 -950 -400 Weight 66.5 kg 69 kg Intake: Oral 358 Output: Urine 150 950 400 Other: Voiding Method Indwelling Catheter Indwelling Catheter Indwelling Catheter # Voids 1 # Bowel Movements 0 1 - Labs CBC & Chem 7: 05/08/22 06:33 05/08/22 06:33 Labs: Abnormal Lab Results - Last 24 Hours (Table) 05/07/22 05/07/22 05/07/22 Range/Units 10:17 10:17 17:12 RBC (4.30-5.90) m/uL Hgb (13.0-17.5) gm/dL MCV (80.0-100.0) fL RDW (11.5-15.5) % Plt Count (150-450) k/uL Carbon Dioxide (22-30) mmol/L BUN 28.2 H (9.0-27.0) mg/dL BUN/Creatinine Ratio 26.11 H (12.00-20.00) Ratio Glucose 171 H (70-110) mg/dL POC Glucose (mg/dL) 58 L (70-110) mg/dL Calcium 8.5 L (8.7-10.3) mg/dL Iron 64 L (65-175) ug/dL Total Bilirubin 1.60 H (0.30-1.20) mg/dL AST 37 H (14-35) U/L Alkaline Phosphatase 37 L (41-126) U/L Total Protein 5.2 L (6.2-8.2) g/dL Total Protein (PEP) 5.3 L (6.2-8.2) g/dL Albumin 3.1 L (3.8-4.9) g/dL Albumin/Globulin Ratio 1.46 L (1.60-3.17) g/dL 05/08/22 05/08/22 05/08/22 Range/Units 02:13 06:33 06:33 RBC 3.71 L (4.30-5.90) m/uL Hgb 12.6 L (13.0-17.5) gm/dL MCV 105.4 H (80.0-100.0) fL RDW 16.0 H (11.5-15.5) % Plt Count 99 L (150-450) k/uL Carbon Dioxide 34 H (22-30) mmol/L BUN 29 H (9.0-27.0) mg/dL BUN/Creatinine Ratio (12.00-20.00) Ratio Glucose 100 H (70-110) mg/dL POC Glucose (mg/dL) 52 L (70-110) mg/dL Calcium 8.1 L (8.7-10.3) mg/dL Iron (65-175) ug/dL Total Bilirubin 1.7 H (0.30-1.20) mg/dL AST (14-35) U/L Alkaline Phosphatase 37 L (41-126) U/L Total Protein 5.6 L (6.2-8.2) g/dL Total Protein (PEP) (6.2-8.2) g/dL Albumin 2.9 L (3.8-4.9) g/dL Albumin/Globulin Ratio (1.60-3.17) g/dL Microbiology - Last 24 Hours (Table) 05/06/22 12:39 Blood Culture - Preliminary Blood No Growth after 48 hours 05/06/22 12:56 Urine Culture - Final Urine,Clean Catch
[2022-05-08 16:26] LABS: Glucose,Whole Blood 234 mg/dL (70-110)
[2022-05-08 17:00] LABS: Albumin 2.77 g/dL (3.80-4.90); Gamma Globulin 0.83 g/dL (0.70-1.50)
--- NOTE | 2022-05-08 19:14 | NM ---
EXAMINATION TYPE: NM hepatobiliary wo EF DATE OF EXAM: 05/08/2022 Patient age:Male; 82 years old; Reason for study: Evaluate patency of cystic duct; COMPARISON: Limited upper abdominal ultrasound 05/06/2022. TECHNIQUE: The patient was given 4.9 mCi of Technetium 99m-Mebrofenin as a radiotracer and multipl e scintigraphic images were obtained of the abdomen. Delayed imaging was performed. FINDINGS: Normal uptake of radiotracer was identified within the liver within 5 minutes with excretion into the hepatic and common biliary ducts within 16 minutes. There was normal progressive washout of the live r over the course of the study. Radiotracer uptake within the gallbladder on delayed imaging and 90 m inutes. IMPRESSION: Gallbladder filling at 90 minutes suggestive of chronic cystitis. Cystic duct appears patent.
[2022-05-08 20:41] LABS: Glucose,Whole Blood 199 mg/dL (70-110)
--- NOTE | 2022-05-08 21:39 | P.PN ---
Subjective Progress Note Date: 05/08/22 Anemia work-up and B12 and folate wnl Platelets are stable 99K Objective - Vital Signs Vital signs: Vital Signs Temp 98.1 F 05/08/22 11:57 Pulse 60 05/08/22 11:57 Resp 18 05/08/22 11:57 BP 136/75 05/08/22 11:57 Pulse Ox 98 05/08/22 11:57 FiO2 2 05/07/22 15:24 Intake & Output 05/08/22 05/08/22 05/09/22 06:59 18:59 06:59 Output Total 950 400 Balance -950 -400 Weight 69 kg Output: Urine 950 400 Other: Voiding Method Indwelling Catheter Indwelling Catheter # Voids 1 2 # Bowel Movements 0 1 - Exam Poor historian Right facial droop Diminished AICD BLE Edema Bruisin - Labs CBC & Chem 7: 05/08/22 06:33 05/08/22 06:33 Labs: Abnormal Lab Results - Last 24 Hours (Table) 05/07/22 05/08/22 05/08/22 Range/Units 10:17 02:13 06:33 RBC 3.71 L (4.30-5.90) m/uL Hgb 12.6 L (13.0-17.5) gm/dL MCV 105.4 H (80.0-100.0) fL RDW 16.0 H (11.5-15.5) % Plt Count 99 L (150-450) k/uL Carbon Dioxide (22-30) mmol/L BUN (9-20) mg/dL Glucose (74-99) mg/dL POC Glucose (mg/dL) 52 L (70-110) mg/dL Calcium (8.4-10.2) mg/dL Total Bilirubin (0.2-1.3) mg/dL Alkaline Phosphatase (38-126) U/L Total Protein (6.3-8.2) g/dL Albumin (3.5-5.0) g/dL Albumin (PEP) 2.77 L (3.80-4.90) g/dL Dqpvu-9-Azvnusnsx 0.42 H (0.10-0.40) g/dL 05/08/22 05/08/22 05/08/22 Range/Units 06:33 16:25 20:35 RBC (4.30-5.90) m/uL Hgb (13.0-17.5) gm/dL MCV (80.0-100.0) fL RDW (11.5-15.5) % Plt Count (150-450) k/uL Carbon Dioxide 34 H (22-30) mmol/L BUN 29 H (9-20) mg/dL Glucose 100 H (74-99) mg/dL POC Glucose (mg/dL) 234 H 199 H (70-110) mg/dL Calcium 8.1 L (8.4-10.2) mg/dL Total Bilirubin 1.7 H (0.2-1.3) mg/dL Alkaline Phosphatase 37 L (38-126) U/L Total Protein 5.6 L (6.3-8.2) g/dL Albumin 2.9 L (3.5-5.0) g/dL Albumin (PEP) (3.80-4.90) g/dL Hwuhs-1-Ysgcpgosd (0.10-0.40) g/dL Microbiology - Last 24 Hours (Table) 05/06/22 12:39 Blood Culture - Preliminary Blood No Growth after 48 hours Assessment and Plan (1) Thrombocytopenia Narrative/Plan: Mild and stable but required close moitor and further work-up ordered. Will follow They are 99K today no intervention needed today Will follow for additional work-up so far neg Current Visit: Yes Status: Acute Code(s): D69.6 - THROMBOCYTOPENIA, UNSPECIFIED SNOMED Code(s): 738885624
[2022-05-09 02:35] LABS: Glucose,Whole Blood 100 mg/dL (70-110)
[2022-05-09 07:08] LABS: Glucose,Whole Blood 114 mg/dL (70-110)
[2022-05-09 08:38] LABS: Methylmalonic Acid 0.22 umol/L (<0.40)
[2022-05-09] MEDS: ISOSORBIDE MONONITRATE ER 60 MG TAB.ER.24H PO SCH (09:03)
[2022-05-09] MEDS: lisinopriL 20 MG TAB PO SCH (09:03)
[2022-05-09] MEDS: METOPROLOL TARTRATE 50 MG TAB PO SCH (09:03)
[2022-05-09] MEDS: TAMSULOSIN 0.4 MG CAP.ER.24H PO SCH (09:03)
[2022-05-09] MEDS: NITROFURANTOIN MONOHYD/M-CRYST 100 MG CAP PO SCH (09:03)
[2022-05-09] MEDS: FUROSEMIDE 20 MG TAB PO SCH (09:03)
[2022-05-09 11:01] LABS: Glucose,Whole Blood 207 mg/dL (70-110)
[2022-05-09 11:26] LABS: ALT 18 U/L (4-49); AST 29 U/L (17-59); African American GFR (CKD) 78 (>60 ml/min/1.73 sqM); Albumin 2.9 g/dL (3.5-5.0); Albumin/Globulin Ratio 1.1; Alkaline Phosphatase 35 U/L (38-126); Anion Gap 3 mmol/L; Blood Urea Nitrogen 31 mg/dL (9-20); Calcium 8.1 mg/dL (8.4-10.2); Carbon Dioxide 36 mmol/L (22-30); Chloride 98 mmol/L (98-107); Globulin 2.6 g/dL; Glucose 196 mg/dL (74-99); Non-African American GFR(CKD) 68 (>60 ml/min/1.73 sqM); Potassium 4.4 mmol/L (3.5-5.1); Sodium 137 mmol/L (137-145); Total Bilirubin 2.3 mg/dL (0.2-1.3); Total Protein 5.5 g/dL (6.3-8.2)
[2022-05-09 11:55] LABS: HCT 37.7 % (39.0-53.0); HGB 12.2 gm/dL (13.0-17.5); Hypochromasia Slight; MCHC 32.4 g/dL (31.0-37.0); MCV 104.8 fL (80.0-100.0); Macrocytosis Moderate; Mean Platelet Volume 10.3; RDW 15.3 % (11.5-15.5); WBC 5.3 k/uL (3.8-10.6)
[2022-05-09] MEDS: metroNIDAZOLE 500 MG TAB PO SCH ×2 (11:56→15:27)
[2022-05-09 11:59] LABS: Platelet Count 87 k/uL (150-450)
[2022-05-09] MEDS ORDERED: LEVOFLOXACIN 500 MG TAB PO SCH (12:00)
[2022-05-09 12:47] VITALS: BP 149/78; PULSE 60; RESP 16; TEMP 98.6
[2022-05-09 12:52] LABS: Free Kappa Lt Chain Qnt, Serum 3.52 mg/dL (0.33-1.94); Free Lambda Lt Chain Qnt, Seru 2.27 mg/dL (0.57-2.63)
--- NOTE | 2022-05-09 13:10 | P.PN ---
Subjective Progress Note Date: 05/09/22 CHIEF COMPLAINT: Fall and right pleural effusion HISTORY OF PRESENT ILLNESS: Patient sitting up at bedside chair. He tolerated eating breakfast. Denies any nausea or vomiting. Today he complains of some lower abdominal pain. He is having flatus. Last bowel movement May 07. HIDA scan shows gallbladder filling at 90 minutes suggestive of chronic cholecystitis. Cystic duct appears patent. Afebrile. WBC 5.3 Hgb 12.2 platelets 87 sodium 137 potassium 4.4 creatinine 1.0 to total bilirubin is up f rom 1.7 to 2.3 AST 29 ALT 18 alk phos 35. They're planning discharge to ECF later today. PHYSICAL EXAM: VITAL SIGNS: Reviewed. GENERAL: Well-developed in no acute distress. HEENT: No sclera icterus. Extraocular movements grossly intact. Moist buccal mucosa. Head is atraumatic, normocephalic. ABDOMEN: Soft. Nondistended. Tender with palpation of the lower abdomen and right upper quadrants NEUROLOGIC: Pleasantly confused ASSESSMENT: 1. Cholelithiasis. 2. Elevated LFTs trending down 3. Right Pleural effusion and congestive heart failure 4. History of AICD 5. Thrombocytopenia PLAN: -Patient can be discharge from surgical standpoint -Recommend discharge with antibiotics -Continue a low-fat diet -HIDA scan showed evidence to suggest chronic cholecystitis. Cystic duct appe ars patent. Patient may have some underlying gallbladder disease. However, he is tolerating diet and is a poor surgical candidate. Recommending antibiotics and to manage conservatively. Physician [employer] note has been reviewed by physician. Signing provider agrees with the documented findings, assessment, and plan of care. I have personally seen and examined the patient, reviewed the MEDICATION ASSISTANT /PAs history, exam and MDM and agree with the assessment and plan as written. Based on total visit time, I have performed more than 50% of the visit. As above: Patient having some lower abdominal pain today. Exam is not showing any upper abdominal tenderness and the tenderness present in the lower abdomen seems mild. He is tolerating his diet. Plans are for possible discharge. Bilirubin is somewhat elevated at 2.3 but it was elevated in January of last year as well. The remainder of the liver enzymes are normal. HIDA scan shows patency of the cystic duct. There is some slow filling of the gallbladder suspected per radiology. Not convinced at this time that the patient's gallbladder is contributing to his abdominal pain, elevated liver enzymes or presentation for that matter. Continue oral antibiotics for possible cholecystitis. Objective - Vital Signs Vital signs: Vital Signs Temp 98.6 F 05/09/22 12:45 Pulse 60 05/09/22 12:45 Resp 16 05/09/22 12:45 BP 149/78 05/09/22 12:45 Pulse Ox 98 05/09/22 12:45 FiO2 2 05/07/22 15:24 Intake & Output 05/08/22 05/09/22 05/09/22 18:59 06:59 18:59 Intake Total 300 Output Total 400 Balance -400 300 Weight 66.5 kg Intake: Oral 300 Output: Urine 400 Other: Voiding Method Indwelling Catheter Indwelling Catheter # Voids 1 5 # Bowel Movements 1 0 - Labs CBC & Chem 7: 05/09/22 10:45 05/09/22 10:45 Labs: Abnormal Lab Results - Last 24 Hours (Table) 05/07/22 05/08/22 05/08/22 Range/Units 10:17 16:25 20:35 RBC (4.30-5.90) m/uL Hgb (13.0-17.5) gm/dL Hct (39.0-53.0) % MCV (80.0-100.0) fL Plt Count (150-450) k/uL Carbon Dioxide (22-30) mmol/L BUN (9-20) mg/dL Glucose (74-99) mg/dL POC Glucose (mg/dL) 234 H 199 H (70-110) mg/dL Calcium (8.4-10.2) mg/dL Total Bilirubin (0.2-1.3) mg/dL Alkaline Phosphatase (38-126) U/L Total Protein (6.3-8.2) g/dL Albumin (3.5-5.0) g/dL Albumin (PEP) 2.77 L (3.80-4.90) g/dL Uwzzv-2-Thwnkvspn 0.42 H (0.10-0.40) g/dL 05/09/22 05/09/22 05/09/22 Range/Units 07:06 10:45 10:45 RBC 3.60 L (4.30-5.90) m/uL Hgb 12.2 L (13.0-17.5) gm/dL Hct 37.7 L (39.0-53.0) % MCV 104.8 H (80.0-100.0) fL Plt Count 87 L (150-450) k/uL Carbon Dioxide 36 H (22-30) mmol/L BUN 31 H (9-20) mg/dL Glucose 196 H (74-99) mg/dL POC Glucose (mg/dL) 114 H (70-110) mg/dL Calcium 8.1 L (8.4-10.2) mg/dL Total Bilirubin 2.3 H (0.2-1.3) mg/dL Alkaline Phosphatase 35 L (38-126) U/L Total Protein 5.5 L (6.3-8.2) g/dL Albumin 2.9 L (3.5-5.0) g/dL Albumin (PEP) (3.80-4.90) g/dL Hqkpr-3-Vgqrozvfx (0.10-0.40) g/dL 05/09/22 Range/Units 10:59 RBC (4.30-5.90) m/uL Hgb (13.0-17.5) gm/dL Hct (39.0-53.0) % MCV (80.0-100.0) fL Plt Count (150-450) k/uL Carbon Dioxide (22-30) mmol/L BUN (9-20) mg/dL Glucose (74-99) mg/dL POC Glucose (mg/dL) 207 H (70-110) mg/dL Calcium (8.4-10.2) mg/dL Total Bilirubin (0.2-1.3) mg/dL Alkaline Phosphatase (38-126) U/L Total Protein (6.3-8.2) g/dL Albumin (3.5-5.0) g/dL Albumin (PEP) (3.80-4.90) g/dL Effee-8-Ncbgeplqi (0.10-0.40) g/dL Microbiology - Last 24 Hours (Table) 05/06/22 12:39 Blood Culture - Preliminary Blood No Growth after 48 hours
[2022-05-09] MEDS: ACETAMINOPHEN TAB 325 MG TAB PO PRN (14:17)
--- NOTE | 2022-05-09 14:58 | P.DS ---
Providers Date of admission: 05/05/22 20:30 Expected date of discharge: 05/09/22 Attending physician: Alesia Ross MD Consults: 05/05/22 20:30 Consult Physician Routine Consulting Provider: [facility] Consult Reason/Comments: Pulmonary edema Do you want consulting provider notified?: Yes Consult Physician Routine Consulting Provider: Theron Kelly Consult Reason/Comments: Pleural effusion Do you want consulting provider notified?: Yes 05/06/22 17:51 Consult Physician Routine Consulting Provider: Vasiliy Garcia Consult Reason/Comments: thrombocytopenia Do you want consulting provider notified?: Yes 05/07/22 11:02 Consult Physician Routine Consulting Provider: Carrington Dowd Consult Reason/Comments: cholelithiasis Do you want consulting provider notified?: Yes Primary care physician: Stated None Hospital Course: Discharge Diagnosis: Cholelithiasis, chronic cholecystitis DM II wtih hypoglycemia Chronic systolic CHF EF40-45% Severe pulm HTN Acute on chronic hypoxic respiratory failure Right plerual effusion, improved Fall/Debility Thrombocytopenia Anemia Chronic atrial fibrillation Rhabdomyolysis, improved Hypertension Hyperlipidemia History of CVA Hospital Course: Patient is an 82-year-old male with systolic congestive heart failure and an ejection fraction 40-45%, A. fib status post by the ICD on [facility], hypertension, sick daily, diabetes mellitus type 2, and multiple other comorbid conditions who presented to the ER after he was found on the floor if his home by family members. In the emergency department he underwent an extensvie evaluation. Head and cervical spine CT in the emergency room revealed no acute abnormalities with EKG showing V paced rhythm at 60 bpm. Hand x-ray was unremarkable with chest x-ray showing some congestive heart failure with a moderate right-sided pleural effusion. Laboratory evaluation was remarkable for creatinine kinase 869, total bilirubin 2.8, BUN 40, creatinine 1.02, and platelet count 105. He was started on some IV fluids due to elevated CK levels. He was seen by cardiology who felt he could follow outpatient basis. He was se en by pulmonary initially plan for thoracentesis secondary to pleural effusion. However with chest ultrasound was too little bit. He did develop some abdominal discomfort. It was noted that his bilirubin was elevated. He underwent an abdominal ultrasound which showed cholelithiasis. Surgery was consulted. He underwent a HIDA scan which showed possible chronic cholecystitis without evidence of common bile duct obstruction, Bilirubin has been chronically elevated. Surgery felt that this was best managed with antibiotics and follow up in the outpatient setting. He did have some hypoglycemia during his hospitalization which was felt to be secondary to Amaryl and elderly. This was discontinued. His hypoglycemia resolved area he did have one episode of intermittent confusion which self resolved and was likely secondary to acute hospital delirium. He was still significantly weak. He was determined that he would benefit from rehab. He was subsequently discharged from our would in stable condition. Follow-up: CBC and CMP in 3 days, Dr. Dowd in 1 week, PCP on discharge from SNF, Dr. Reddy on discharge from SNF. 6 days of levaquin and flagyl. Check blood sugar every AM. Patient seen and examined at bedside. Doing well today, still having some pain in his abdomen but getting better, eating well.Still feeling pain from the fall Vital signs reviewed and stable. General: nontoxic, no distress, appears at stated age Derm: warm, dry Head: atraumatic, normocephalic, symmetric, PAUMA, Kyphosis Eyes: EOMI, no lid lag, anicteric sclera Mouth: no lip lesion, mucus membranes moist Cardiovascular: S1S2 reg, no murmur, positive posterior tibial pulse bilateral, Lungs: Course bs bilateral, no rhonchi, no rales , no accessory muscle use Abdominal: soft, nontender to palpation, no guarding, no appreciable organomegaly Ext: no gross muscle atrophy, no edema, no contractures Neuro: CN II-XI grossly intact, no focal neuro deficits, delayed speech Psych: Alert, oriented, appropriate affect A total of 34 minutes of time were spent preparing this complex discharge summary. Patient was discharged on 05/09/22. Patient Condition at Discharge: Stable Plan - Discharge Summary New Discharge Prescriptions: New RX: metroNIDAZOLE [Flagyl] 500 mg PO TID 6 Days tab RX: Levofloxacin [Levaquin] 500 mg PO Q24H 6 Days tab Continue RX: Metoprolol Tartrate [Lopressor] 100 mg PO BID RX: Fenofibrate Nanocrystallized [Fenofibrate] 145 mg PO HS RX: Isosorbide Mononitrate ER [Imdur] 60 mg PO DAILY RX: Apixaban [Eliquis] 2.5 mg PO BID RX: Furosemide [Lasix] 20 mg PO DAILY RX: lisinopriL [Zestril] 20 mg PO DAILY RX: Ketoconazole 2% Cream [Nizoral 2%] 1 applic TOPICAL DAILY Discontinued RX: Glimepiride [Amaryl] 2 mg PO BID Discharge Medication List RX: Fenofibrate Nanocrystallized [Fenofibrate] 145 mg PO HS 02/16/15 [History] RX: Isosorbide Mononitrate ER [Imdur] 60 mg PO DAILY 02/16/15 [History] RX: Metoprolol Tartrate [Lopressor] 100 mg PO BID 02/16/15 [History] RX: Apixaban [Eliquis] 2.5 mg PO BID 12/03/18 [History] RX: Furosemide [Lasix] 20 mg PO DAILY 01/18/19 [History] RX: Ketoconazole 2% Cream [Nizoral 2%] 1 applic TOPICAL DAILY 05/05/22 [History] RX: lisinopriL [Zestril] 20 mg PO DAILY 05/05/22 [History] RX: Levofloxacin [Levaquin] 500 mg PO Q24H 6 Days tab 05/09/22 [Rx] RX: metroNIDAZOLE [Flagyl] 500 mg PO TID 6 Days tab 05/09/22 [Rx] Follow up Appointment(s)/Referral(s): Carrington Dowd MD [Medical Doctor] - 1 Week Landry Reddy MD [STAFF PHYSICIAN] - 1 Week None,Stated [Primary Care Provider] - 1-2 days Activity/Diet/Wound Care/Special Instructions: Activity: as tolerated Diet: low fat Special Instructions: check blood sugar every AM and as needed for signs of hypoglycemia CBC and CMP in 3-5 days DX: thrombocytopenia and chronic cholecystitis Discharge Disposition: TRANSFER TO SNF/ECF
--- NOTE | 2022-05-09 21:23 | P.PN ---
Subjective Progress Note Date: 05/09/22 Objective - Vital Signs Vital signs: Vital Signs Temp 98.6 F 05/09/22 12:45 Pulse 60 05/09/22 12:45 Resp 16 05/09/22 12:45 BP 149/78 05/09/22 12:45 Pulse Ox 98 05/09/22 12:45 FiO2 2 05/07/22 15:24 Intake & Output 05/08/22 05/09/22 05/09/22 18:59 06:59 18:59 Intake Total 300 Output Total 400 Balance -400 300 Weight 66.5 kg Intake: Oral 300 Output: Urine 400 Other: Voiding Method Indwelling Catheter Indwelling Catheter # Voids 1 5 # Bowel Movements 1 0 - Exam Poor historian Right facial droop Diminished AICD BLE Edema Bruisin - Labs CBC & Chem 7: 05/09/22 10:45 05/09/22 10:45 Labs: Abnormal Lab Results - Last 24 Hours (Table) 05/07/22 05/08/22 05/08/22 Range/Units 10:17 16:25 20:35 RBC (4.30-5.90) m/uL Hgb (13.0-17.5) gm/dL Hct (39.0-53.0) % MCV (80.0-100.0) fL Plt Count (150-450) k/uL Carbon Dioxide (22-30) mmol/L BUN (9-20) mg/dL Glucose (74-99) mg/dL POC Glucose (mg/dL) 234 H 199 H (70-110) mg/dL Calcium (8.4-10.2) mg/dL Total Bilirubin (0.2-1.3) mg/dL Alkaline Phosphatase (38-126) U/L Total Protein (6.3-8.2) g/dL Albumin (3.5-5.0) g/dL Albumin (PEP) 2.77 L (3.80-4.90) g/dL Hwxxy-5-Jobbtbydm 0.42 H (0.10-0.40) g/dL Free [place] LC, Quant 3.52 H (0.33-1.94) mg/dL 05/09/22 05/09/22 05/09/22 Range/Units 07:06 10:45 10:45 RBC 3.60 L (4.30-5.90) m/uL Hgb 12.2 L (13.0-17.5) gm/dL Hct 37.7 L (39.0-53.0) % MCV 104.8 H (80.0-100.0) fL Plt Count 87 L (150-450) k/uL Carbon Dioxide 36 H (22-30) mmol/L BUN 31 H (9-20) mg/dL Glucose 196 H (74-99) mg/dL POC Glucose (mg/dL) 114 H (70-110) mg/dL Calcium 8.1 L (8.4-10.2) mg/dL Total Bilirubin 2.3 H (0.2-1.3) mg/dL Alkaline Phosphatase 35 L (38-126) U/L Total Protein 5.5 L (6.3-8.2) g/dL Albumin 2.9 L (3.5-5.0) g/dL Albumin (PEP) (3.80-4.90) g/dL Wprnp-1-Satvncsrk (0.10-0.40) g/dL Free [place] LC, Quant (0.33-1.94) mg/dL 05/09/22 Range/Units 10:59 RBC (4.30-5.90) m/uL Hgb (13.0-17.5) gm/dL Hct (39.0-53.0) % MCV (80.0-100.0) fL Plt Count (150-450) k/uL Carbon Dioxide (22-30) mmol/L BUN (9-20) mg/dL Glucose (74-99) mg/dL POC Glucose (mg/dL) 207 H (70-110) mg/dL Calcium (8.4-10.2) mg/dL Total Bilirubin (0.2-1.3) mg/dL Alkaline Phosphatase (38-126) U/L Total Protein (6.3-8.2) g/dL Albumin (3.5-5.0) g/dL Albumin (PEP) (3.80-4.90) g/dL Ejpqz-9-Wqyctfhut (0.10-0.40) g/dL Free [place] LC, Quant (0.33-1.94) mg/dL Microbiology - Last 24 Hours (Table) 05/06/22 12:39 Blood Culture - Preliminary Blood No Growth after 48 hours Assessment and Plan (1) Thrombocytopenia Narrative/Plan: Mild and stable but required close moitor and further work-up ordered. Will follow They are 89K today no intervention needed today Will follow for additional work-up so far neg Likey due to chronuc liver Current Visit: Yes Status: Acute Code(s): D69.6 - THROMBOCYTOPENIA, U NSPECIFIED SNOMED Code(s): 464453767
== END 2022-05-09 16:45 | DRG 291 ==
LOC: EC 17:42 → 5NMEDONC 20:30
PROVIDERS: ADMIT Internal Medicine; ATTEND Internal Medicine
DX: I13.0 Hypertensive heart and chronic kidney disease with heart failure and stage 1 through stage 4 chronic kidney disease, or unspecified chronic kidney disease (principal); G92.8 Other toxic encephalopathy; I50.23 Acute on chronic systolic (congestive) heart failure; J96.21 Acute and chronic respiratory failure with hypoxia; I48.21 Permanent atrial fibrillation; M62.82 Rhabdomyolysis; K80.10 Calculus of gallbladder with chronic cholecystitis without obstruction; R55 Syncope and collapse; Z20.822 Contact with and (suspected) exposure to COVID-19; E86.0 Dehydration; E78.5 Hyperlipidemia, unspecified; E11.22 Type 2 diabetes mellitus with diabetic chronic kidney disease; N18.30 Chronic kidney disease, stage 3 unspecified; H91.90 Unspecified hearing loss, unspecified ear; I42.8 Other cardiomyopathies; I25.10 Atherosclerotic heart disease of native coronary artery without angina pectoris; R53.81 Other malaise; R33.9 Retention of urine, unspecified; E11.649 Type 2 diabetes mellitus with hypoglycemia without coma; I08.3 Combined rheumatic disorders of mitral, aortic and tricuspid valves; I27.20 Pulmonary hypertension, unspecified; D64.9 Anemia, unspecified; D69.6 Thrombocytopenia, unspecified; W01.0XXA Fall on same level from slipping, tripping and stumbling without subsequent striking against object, initial encounter; S40.211A Abrasion of right shoulder, initial encounter; R79.89 Other specified abnormal findings of blood chemistry; E11.51 Type 2 diabetes mellitus with diabetic peripheral angiopathy without gangrene; Z95.810 Presence of automatic (implantable) cardiac defibrillator; Z86.73 Personal history of transient ischemic attack (TIA), and cerebral infarction without residual deficits; Z79.01 Long term (current) use of anticoagulants; Z79.84 Long term (current) use of oral hypoglycemic drugs; Z79.899 Other long term (current) drug therapy; Z87.891 Personal history of nicotine dependence; Z88.0 Allergy status to penicillin; Z82.49 Family history of ischemic heart disease and other diseases of the circulatory system
CPT/HCPCS: 36415; 51702; 70450; 71046; 72125; 76604; 76705; 78226; 80053; 81001; 82140; 82550; 82607; 82728; 82746; 82784; 83036; 83540; 83550; 83615; 83883; 83921; 84165; 84425; 85025; 85027; 85045; 85384; 85610; 85652; 85730; 86038; 86334; 86431; 87040; 87086; 87635; 93005; 96361; 96374; 99285

== ENCOUNTER 2023-09-18 15:44 | Emergency (ER) | payer MEDICARE, OTHER ==
[2023-09-18 16:00] VITALS: BP 120/83; PULSE 96; RESP 18
--- NOTE | 2023-09-18 16:42 | ED ---
Fall HPI - General Chief Complaint: Fall Stated Complaint: Fall Time Seen by Provider: 09/18/23 15:46 Source: EMS Mode of arrival: EMS Limitations: physical limitation - History of Present Illness Initial Comments: Patient is an 83-year-old man from [facility] to have evaluation related to a fall. The patient reportedly had been in a wheelchair at the long-term care facility. Staff said that he was unattended for approximately 5 minutes and when they came back he appears to have fallen from a wheelchair. The patient not able to give much history as he is significantly hard of hearing and has significant dysarthria. The patient did indicate neck pain. Denies shortness of breath. MD Complaint: fall -: minutes(s) Fall From: wheelchair When Fall Occurred: just prior to arrival Fall Witnessed: no Place Fall Occurred: [facility]NF Loss of Consciousness: unsure Prolonged Down Time?: no Location: neck - Related Data Home Medications Medication Instructions Recorded Confirmed Fenofibrate Nanocrystallized 145 mg PO HS 02/16/15 05/05/22 [Fenofibrate] Isosorbide Mononitrate ER [Imdur] 60 mg PO DAILY 02/16/15 05/05/22 Metoprolol Tartrate [Lopressor] 100 mg PO BID 02/16/15 05/05/22 Apixaban [Eliquis] 2.5 mg PO BID 12/03/18 05/05/22 Furosemide [Lasix] 20 mg PO DAILY 01/18/19 05/05/22 Ketoconazole 2% Cream [Nizoral 2%] 1 applic TOPICAL DAILY 05/05/22 05/05/22 lisinopriL [Zestril] 20 mg PO DAILY 05/05/22 05/05/22 Previous Rx's Medication Instructions Recorded Levofloxacin [Levaquin] 500 mg PO Q24H 6 Days tab 05/09/22 metroNIDAZOLE [Flagyl] 500 mg PO TID 6 Days tab 05/09/22 Allergies Allergy/AdvReac Type Severity Reaction Status Date / Time Penicillins AdvReac Unknown Verified 05/05/22 20:22 Review of Systems ROS Statement: Those systems with pertinent positive or pertinent negative responses have been documented in the HPI. ROS Other: All systems not noted in ROS Statement are negative. Limitations: ROS unobtainable due to patients medical condition Respiratory: Denies: cough, dyspnea Cardiovascular: Denies: chest pain Gastrointestinal: Denies: abdominal pain, vomiting Musculoskeletal: Denies: back pain Skin: Denies: rash Neurological: Denies: headache Past Medical History Past Medical History: Heart Failure, CVA/TIA, Hypertension History of Any Multi-Drug Resistant Organisms: None Reported Past Surgical History: Orthopedic Surgery, Pacemaker Additional Past Surgical History / Comment(s): colonoscopy. repair lt toe Past Anesthesia/Blood Transfusion Reactions: No Reported Reaction Date of Last Stent Placement:: 2005 Type of Cardiac Device: Biventricular Pacemaker, Permanent Pacemaker Device Placement Date:: 02-01-2019 Past Psychological History: No Psychological Hx Reported Smoking Status: Former smoker Past Alcohol Use History: None Reported Past Drug Use History: None Reported - Past Family History Mother Family Medical History: No Reported History Brother(s) Family Medical History: Memory Impairment Additional Family Medical History / Comment(s): youngest brother passed at 66 in 2020 from a [place] General Exam Limitations: language barrier, altered mental status General appearance: alert, in no apparent distress Head exam: Present: atraumatic, normocephalic Eye exam: Present: normal appearance. Absent: scleral icterus, conjunctival injection Neck exam: Present: normal inspection, tenderness Respiratory exam: Present: normal lung sounds bilaterally. Absent: respiratory distress, wheezes, rales, rhonchi, stridor, chest wall tenderness, accessory muscle use Cardiovascular Exam: Present: regular rate, normal rhythm, normal heart sounds. Absent: systolic murmur, diastolic murmur, rubs, gallop GI/Abdominal exam: Present: soft. Absent: distended, tenderness, guarding, rebound, rigid, mass Extremities exam: Present: normal inspection, normal capillary refill Back exam: Present: normal inspection, other (Patient is wearing brace). Absent: vertebral tenderness Neurological exam: Present: alert. Absent: motor sensory deficit Skin exam: Present: warm, dry, intact, normal color. Absent: rash Course Vital Signs 09/18/23 15:45 Pulse Rate 96 Respiratory 18 Rate Blood Pressure 120/83 O2 Sat by Pulse 97 Oximetry Medical Decision Making - Medical Decision Making The patient had computed tomography scan of the brain and C-spine which I in terpreted as negative for acute intracranial hemorrhage or acute bony injury Following computed tomography scan patient reevaluated and no new complaints. He did indicate wanting to go back to his home facility Was pt. sent in by a medical professional or institution ([facility], [facility], urgent care, hospital, or [facility]...) When possible be specific @ -This patient sent from long-term care facility to have evaluation of fall Did you speak to anyone other than the patient for history (EMS, parent, family, police, friend...)? What history was obtained from this source @ -[No] Did you review nursing and triage notes (agree or disagree)? Why? @ -[I reviewed and agree with nursing and triage notes] Were old charts reviewed (outside hosp., previous admission, EMS record, old EKG, old radiological studies, urgent care reports/EKG's, [facility] records)? Report findings @ -[No old charts were reviewed] Differential Diagnosis (chest pain, altered mental status, abdominal pain women, abdominal pain men, vaginal bleeding, weakness, fever, dyspnea, syncope, headache, dizziness, GI bleed, back pain, seizure, CVA, palpatations, mental health, musculoskeletal)? @ -[Differential Musculoskeletal Muscular strain, contusion, ligament sprain, fracture, arthritis, septic arthritis, bursitis, cellulitis, muscle spasm, nerve compression, intracranial injury This is not meant to be in all inclusive list EKG interpreted by me (3pts min.). @ -[As above] X-rays interpreted by me (1pt min.). @ -[None done] CT interpreted by me (1pt min.). @ -[I interpreted as above U/S interpreted by me (1pt. min.). @ -[None done] What testing was considered but not performed or refused? (CT, X-rays, U/S, labs)? Why? @ -[None] What meds were considered but not given or refused? Why? @ -[None] Did you discuss the management of the patient with other professionals (professionals i.e. [facility], [facility], lab, RT, psych nurse, social media developer, formulator, teacher, correction officer penitentiary, family preservation caseworker)? Give summary @ -[No] Was smoking cessation discussed for >3mins.? @ -[No] Was critical care preformed (if so, how long)? @ -[No] Were there social determinants of health that impacted care today? How? (Homelessness, low income, unemployed, alcoholism, drug addiction, trans portation, low edu. Level, literacy, decrease access to med. care, correction, rehab)? @ -[No] Was there de-escalation of care discussed even if they declined (Discuss DNR or withdrawal of care, Hospice)? DNR status @ -[No] What co-morbidities impacted this encounter? (DM, HTN, Smoking, COPD, CAD, Cancer, CVA, ARF, Chemo, Hep., AIDS, mental health diagnosis, sleep apnea, morbid obesity)? @ -[None] Was patient admitted / discharged? Hospital course, mention meds given and route, prescriptions, significant lab abnormalities, going to OR and other pertinent info. @ -[Patient discharged, as above Undiagnosed new problem with uncertain prognosis? @ -[No] Drug Therapy requiring intensive monitoring for toxicity (Heparin, Nitro, Insulin, Cardizem)? @ -[No] Were any procedures done? @ -[No] Diagnosis/symptom? @ -[Fall with minor head trauma Acute, or Chronic, or Acute on Chronic? @ -[Acute Uncomplicated (without systemic symptoms) or Complicated (systemic symptoms)? @ -[Uncomplicated Side effects of treatment? @ -[No] Exacerbation, Progression, or Severe Exacerbation? @ -[No] Poses a threat to life or bodily function? How? (Chest pain, [place], [place], pneumonia, PE, COPD, DKA, ARF, appy, cholecystitis, CVA, Diverticulitis, Homicidal, Suicidal, threat to staff... and all critical care pts) @ -[No] Disposition Clinical Impression: Head injury Disposition: HOME SELF-CARE Condition: Fair Instructions (If sedation given, give patient instructions): Fall Prevention for Older Adults (ED), Head Injury (ED) Is patient prescribed a controlled substance at d/c from ED?: No Referrals: Kye Hall DO [Primary Care Provider] - 1-2 days
--- NOTE | 2023-09-18 17:21 | CT ---
EXAMINATION TYPE: CT brain cspine wo con CT DLP: 1759.6 mGycm, Automated exposure control for dose reduction was used. DATE OF EXAM: 09/18/2023 4:59 PM COMPARISON: None. CLINICAL INDICATION:Male, 83 years old with history of fall injury; fall, ams TECHNIQUE: Brain: Multiple axial CT images of the brain were obtained without IV contrast. Cspine: Axial CT images from the skull base to the inferior aspect of T2 we obtained without intraven ous contrast. Coronal and sagittal reformatted images were also reviewed. FINDINGS: Brain: Extra-axial spaces: No abnormal extra-axial fluid collections. Ventricular system: Dilatation in proportion to cerebral atrophy. Cerebral parenchyma: Hypodense region within the right caudate nucleus. Cerebral atrophy. No acute in traparenchymal hemorrhage or mass effect. The rios-white junction is well differentiated. Cerebellum: Unremarkable. Mass effect: No evidence of midline shift. Intracranial vasculature: Atherosclerotic calcifications of the intracranial vessels. Soft tissues: Normal. Calvarium/osseous structures: No depressed skull fracture. Paranasal sinuses and mastoid air cells: Clear. Visualized orbits: Orbital contents are intact. Cervical spine: Fracture: None. Osseous structures: Multilevel degenerative disc disease changes with endplate spurring and disc oste ophyte complex's. Vertebral alignment: Within normal limits. Spinal canal/Neural Foramina: No evidence of significant spinal canal narrowing. No evidence for sign ificant neural foraminal stenosis. Neck soft tissues: Prevertebral soft tissues are within normal limits. Partially visualized cardiac conduction leads. Trace bilateral pleural effusions. IMPRESSION: 1. No acute intracranial process. 2. Similar right caudate nucleus injury. 3. No evidence of cervical spine fracture. 4. Mild multilevel degenerative disc disease.
== END 2023-09-18 18:51 | disposition home or self-care (01) ==
LOC: EC 15:44
DX: S09.90XA Unspecified injury of head, initial encounter (principal); I11.0 Hypertensive heart disease with heart failure; I50.9 Heart failure, unspecified; Z87.891 Personal history of nicotine dependence; Z79.899 Other long term (current) drug therapy; Z88.0 Allergy status to penicillin; Z95.0 Presence of cardiac pacemaker; W05.0XXA Fall from non-moving wheelchair, initial encounter
CPT/HCPCS: 70450; 72125; 99284

== ENCOUNTER → 2023-09-21 | Outpatient (CLI) | payer MEDICARE ==
--- NOTE | 2023-09-22 09:03 | NM ---
EXAMINATION TYPE: NM bone scan whole body DATE OF EXAM: 09/21/2023 COMPARISON: NONE HISTORY: Low back pain since fall 08/28/2023 and 09/18/2023. D Delayed whole-body scanning was performed following the injection of 20.3 mCi Tc 99m MDP. Images wer e acquired 5 hours post injection. FINDINGS: There is some increased uptake in the anterior lower right ribs typical for posttraumatic change of t he rib ends. Correlate with location of the patient's pain. There is increased uptake within the region of the L4 pedicles. There is diffuse increased uptake wit hin the L5 vertebral body. Plain film correlation is recommended. Radiotracer distribution otherwise appears normal. Scoliosis is within the thoracolumbar spine. This can be related patient positioning or muscle spasm. IMPRESSION: 1. Uptake within the L5 vertebral body can be compatible with acute compression deformity. Correlate with plain films, CT, or MRI. 2. Uptake within the bilateral pedicles of L4 is is less typical for acute trauma. Correlation with C T may be useful. 3. Uptake along the anterior right lower rib ends at the costovertebral chondral junction can be comp atible with posttraumatic changes.
== END | disposition home or self-care (01) ==
LOC: RADNMMAIN 09-07 10:28
PROVIDERS: ATTEND Orthopaedic Surgery Orthopaedic Surgery of the Spine
DX: S32.020A Wedge compression fracture of second lumbar vertebra, initial encounter for closed fracture (principal); S32.030A Wedge compression fracture of third lumbar vertebra, initial encounter for closed fracture; S32.048A Other fracture of fourth lumbar vertebra, initial encounter for closed fracture; S32.058A Other fracture of fifth lumbar vertebra, initial encounter for closed fracture; S22.088A Other fracture of T11-T12 vertebra, initial encounter for closed fracture; S22.060A Wedge compression fracture of T7-T8 vertebra, initial encounter for closed fracture; S22.070A Wedge compression fracture of T9-T10 vertebra, initial encounter for closed fracture; W19.XXXA Unspecified fall, initial encounter
CPT/HCPCS: 78306; A9503